=== PATIENT | female | born 1995 | race Caucasian/White ===

== ENCOUNTER 2020-08-28 10:43 | Outpatient (REF) | payer OTHER, SELFPAY ==
[2020-08-28 16:12] LABS: CT PCR NOT DETECTED (Not Detect.); NG PCR NOT DETECTED (Not Detect.)
[2020-08-29 09:26] LABS: BV Int Neg Control Negative (Negative); BV Int Pos Control Positive (Positive)
== END 2020-08-28 10:44 | disposition home or self-care (01) ==
LOC: HO.LAB 10:43
PROVIDERS: PCP Internal Medicine; Visit Provider Obstetrics & Gynecology
DX: B37.3 Candidiasis of vulva and vagina (principal)
CPT/HCPCS: 87480; 87491; 87510; 87591; 87660; 99212

== ENCOUNTER 2020-09-11 00:09 | Emergency (ER) | payer OTHER, SELFPAY ==
[2020-09-11 00:46] VITALS: BP 123/77; PULSE 86; RESP 16; TEMP 37; O2SAT 100; BMI 41.8
--- NOTE | 2020-09-11 00:50 | ED.URI ---
HPI - URI/Sore Throat General Chief Complaint: Upper Respiratory Symptoms Stated Complaint: Covid exposure Time Seen by Provider: 09/11/20 00:44 Source: patient Mode of arrival: ambulatory Limitations: no limitations History of Present Illness HPI Narrative: 25-year-old female presents for COVID-19 testing after a positive COVID 19 exposure. Her sister is positive. At this time patient is asymptomatic. Treatments prior to arrival: none Related Data Home Medications Medication Instructions Recorded Confirmed trazodone 50 mg tablet 50 mg PO BEDTIME PRN 06/02/20 Previous Rx's Medication Instructions Recorded trazodone 50 mg tablet 50 mg PO BEDTIME PRN #30 tab 06/04/20 olanzapine 10 mg tablet 10 mg PO DAILY #30 tab 06/29/20 clotrimazole-betamethasone 1 1 appl TOPICAL BID 5 Days #45 g 08/28/20 %-0.05 % topical cream terconazole 0.8 % vaginal cream 1 appful VAGINAL BEDTIME 3 Days 08/28/20 #20 g Allergies Allergy/AdvReac Type Severity Reaction Status Date / Time No Known Allergies Allergy Verified 08/28/20 11:06 [No Known Allergies*] Review of Systems Review of Systems: Constitutional: No Fever, No Chills ENT/Mouth: No Ear Pain, No Hoarseness, No sore throat Eyes: No Eye Pain, No Swelling, No Redness, No Foreign Body Cardiovascular: No Chest Pain, No SOB Respiratory: No Cough, No Dyspnea Gastrointestinal: No Nausea, No Vomiting, No Diarrhea, No abdominal Pain Genitourinary: No Dysuria, No Hematuria Musculoskeletal: No joint pain, No Myalgias, No Joint Swelling Skin: No Skin lacerations, No rash Neuro: No Weakness, No Numbness, No Paresthesias, No Loss of Consciousness, No Dizziness, No Headache Psych: No Anxiety/Panic, No Depression Heme/Lymph: no easy bruising, no Lymphadenopathy Endocrine: No Polyuria, No Polydipsia Yes all other systems are reviewed and are negative [facility] Past Medical History Attestation statement: The following information was validated with the patient. Source: old records reviewed Medical History (Updated 09/11/20 @ 00:49 by Oly Longoria NP) Sleeping difficulties Social History Social History Alcohol intake: never Smoking Status: Never smoker Advance Directives: No Physical Exam Vital Signs: Vital Signs: Last Vital Signs Temp 98.6 F 09/11/20 00:46 Pulse 86 09/11/20 00:46 Resp 16 09/11/20 00:46 BP 123/77 09/11/20 00:46 Pulse Ox 100 09/11/20 00:46 Body Mass Index 41.8 Appearance: Alert. Oriented X3. No acute distress. Eyes: Pupils equal, round and reactive to light. ENT: Pharynx normal. Neck: Normal inspection. Neck supple. CVS: Normal heart rate and rhythm. Pulses normal. Respiratory: No respiratory distress. Breath sounds normal. Abdomen: Soft and nontender. Skin: Skin warm and dry. Normal skin color. Normal skin turgor. Extremities: No lower extremity edema. Neuro: No motor deficit. No sensory deficit. Course Course Course Narrative: 25-year-old female presents with positive COVID-19 exposure. Plan of care is to test. Will call with her results. Patient does understand social isolation guidelines. Patient verbalized understanding of and agrees to plan of care discharge home. 1:45 a.m. family called to update that child is COVID positive, meaning that the entire family would be COVID positive. MDM - URI/Sore Throat Differential Diagnosis Differential diagnosis: Likely upper respiratory infection and viral infection Medical Records Attestation: I reviewed the patient's medical records. Lab Data Attestation: I reviewed the patient's lab results. Labs: Lab Results 09/11/20 Range/Units 01:02 COVID-19 (IRAIDA) Negative (Negative) COVID-19 Clin Com See Note Discharge Plan Discharge Clinical Impression: COVID-19 Patient Disposition: Home, Self-Care Instructions: COVID-19 (Coronavirus Disease 2019) (ED) Additional Instructions: You were evaluated for symptoms consistent with COVID-19 and or COVID-19 positive exposure. Please maintain social isolation per State and Federal guidelines. Is your responsibility to maintain these guidelines. Your test results are pending. We will call you with the results. You must treat yourself as if you are positive until your test results come back. Thank you for choosing this emergency department for evaluation. Please follow-up with primary care physician as needed. Return to the emergency department for any new, concerning, or worsening symptoms. Prescriptions: No Action trazodone 50 mg tablet 50 mg PO BEDTIME PRNRF: 0 trazodone 50 mg tablet 50 mg PO BEDTIME PRN (Reason: for insomnia) Qty: 30 RF: 6 olanzapine 10 mg tablet 10 mg PO DAILY Qty: 30 RF: 5 terconazole 0.8 % cream 1 appful vaginal BEDTIME 3 Days Qty: 20 RF: 0 clotrimazole-betamethasone 1-0.05 % cream 1 appl topical BID 5 Days Qty: 45 RF: 0 Stand Alone Forms: Work/School Release Interventions: ED Discharge Assessment Last Done: 09/11/20 01:28 Discharge Date/Time: 09/11/20 01:29
[2020-09-11 01:25] LABS: COVID-19 Test Negative (Negative)
== END 2020-09-11 01:29 | disposition home or self-care (01) ==
PROVIDERS: Nurse Practitioner Family; Emergency Provider Emergency Medicine Emergency Medical Services; PCP Internal Medicine
DX: Z20.822 Contact with and (suspected) exposure to COVID-19 (principal)
CPT/HCPCS: 36415; 87635; 99283

== ENCOUNTER 2020-09-16 11:50 | Outpatient (REF) | payer OTHER, SELFPAY ==
[2020-09-16 12:23] LABS: COVID-19 Test Negative (Negative); IDNOW Serial# 08D9AD1C
== END 2020-09-16 11:51 | disposition home or self-care (01) ==
LOC: HO.LAB 11:50
PROVIDERS: Visit Provider Internal Medicine
DX: Z20.822 Contact with and (suspected) exposure to COVID-19 (principal)
CPT/HCPCS: 36415; 87635; C9803

== ENCOUNTER 2020-09-21 13:42 | Emergency (ER) | payer OTHER, SELFPAY ==
--- NOTE | ~2020-09-21 | XR_ITS ---
EXAMINATION: XR CHEST CLINICAL INFORMATION: Shortness of breath. COMPARISON: Chest done on 07/28/2015. TECHNIQUE: Frontal view of the chest was obtained. FINDINGS: No significant abnormality is noted involving the heart, lungs, mediastinum, bony thorax or soft tissues. XR/XR chest 1V IMPRESSION: Unremarkable examination.
[2020-09-21 13:57] VITALS: BP 149/83; PULSE 97; RESP 18; TEMP 36.8; O2SAT 97; BMI 37.2
--- NOTE | 2020-09-21 14:55 | ED.URI ---
HPI - URI/Sore Throat General Chief Complaint: Upper Respiratory Symptoms Stated Complaint: covid symptoms - exposed Time Seen by Provider: 09/21/20 14:07 Source: patient Mode of arrival: ambulatory Limitations: no limitations History of Present Illness HPI Narrative: 25 yo female wtjose armando no medical history presents to the ED from home complaining of dry cough associated with chest discomfort and shortness of breath for the last 2 days. She reports loss of sense of smell and generally feeling unwell. She lives at home with her and daughter who were both just diagnosed with COVID-19. She has mild central chest soreness when she coughs. It does not radiate and it worse with palpation. She denies fever or chills. No abdominal pain, N/V/D. Eating and drinking normally. No VILLELA. MD elicited complaint: cough and other (SOB) Onset (ago): day(s) (2) Consistency: intermittent Severity: moderate Able to tolerate fluids by mouth: Yes Exacerbating factors: exertion Relieving factors: rest Context: sick contacts Associated symptoms: chills, myalgias, headache, nasal congestion, sore throat, cough and shortness of breath Treatments prior to arrival: none Related Data Home Medications Medication Instructions Recorded Confirmed trazodone 50 mg tablet 50 mg PO BEDTIME PRN 06/02/20 Previous Rx's Medication Instructions Recorded trazodone 50 mg tablet 50 mg PO BEDTIME PRN #30 tab 06/04/20 olanzapine 10 mg tablet 10 mg PO DAILY #30 tab 06/29/20 clotrimazole-betamethasone 1 1 appl TOPICAL BID 5 Days #45 g 08/28/20 %-0.05 % topical cream terconazole 0.8 % vaginal cream 1 appful VAGINAL BEDTIME 3 Days 08/28/20 #20 g albuterol sulfate 1 inh INHALATION QID PRN #6.7 g 09/21/20 Allergies Allergy/AdvReac Type Severity Reaction Status Date / Time No Known Allergies Allergy Verified 08/28/20 11:06 [No Known Allergies*] Review of Systems Review of Systems: Constitutional: No Fever, + Chills ENT/Mouth: No sore throat, No Rhinorrhea, No Swallowing Difficulty Cardiovascular: + Chest Pain, + SOB, No Orthopnea, No Edema Respiratory: + Cough, No Sputum, No Wheezing, No dyspnea Gastrointestinal: No Nausea, No Vomiting, No Diarrhea, No abdominal Pain Genitourinary: No Dysuria, No Urinary Frequency, No Hematuria Musculoskeletal: No joint pain, + Myalgias Skin: No Skin Lesions, No rash Neuro: No Weakness, No Numbness, + Dizziness, + Headache Heme/Lymph: No Lymphadenopathy [facility] Past Medical History Attestation statement: The following information was validated with the patient. Medical History Asthma Sleeping difficulties Social History Social History Alcohol intake: never Smoking Status: Never smoker Advance Directives: No Advance Directives Information Provided: No Physical Exam Vital Signs: Vital Signs: Last Vital Signs Temp 97.1 F 09/21/20 15:28 Pulse 91 09/21/20 15:28 Resp 16 09/21/20 15:28 BP 145/96 H 09/21/20 15:28 Pulse Ox 99 09/21/20 15:28 Body Mass Index 37.2 Appearance: Alert. Oriented X3. No acute distress. Eyes: Pupils equal, round and reactive to light. ENT: Pharynx normal. Neck: Normal inspection. Neck supple. CVS: Normal heart rate and rhythm. Pulses normal. Respiratory: No respiratory distress. Breath sounds normal. Abdomen: Soft and nontender. +BS x4 Skin: Skin warm and dry. Normal skin color. Normal skin turgor. No rashes. Extremities: No lower extremity edema. Negative Eusebio's sign. Neuro: Oriented X 3. No motor deficit. No sensory deficit. Course Course Course Narrative: 25 y/o female with history of mild intermittent asthma presenting with COVID symptoms after known exposure. PERC negative. No respiratory distress with clear lungs on exam. CXR is clear. COVID PCR sent - patient requesting to leave and get called with the results. Stable for d/c. She has been counseled on management and warning signs to return to the ER. Critical Care Time Critical Care Time Critical Care Time: No Discharge Plan Discharge Clinical Impression: COVID-19 Patient Disposition: Home, Self-Care Instructions: COVID-19 (Coronavirus Disease 2019) (ED) Additional Instructions: You tested for COVID-19 today - we will call you with the results this evening. Given your symptoms and known exposure, you are most likely POSITIVE. Your chest x-ray and oxygen levels were normal. Rest. Drink plenty of fluids. Do not go out in public for the next 10 days. Take over the counter cold/flu medications as needed for your symptoms. Take Tylenol and/or Motrin as needed for fevers and body aches. Follow up with your doctor this week. If you shortness of breath worsens , if you develop difficulty breathing or any other concerning symptom come back to the ER for further evaluation. Prescriptions: New albuterol sulfate 90 mcg/actuation HFA aerosol inhaler 1 inh inhalation QID PRN (Reason: shortness of breath or wheezing) Qty: 6.7 RF: 0 No Action trazodone 50 mg tablet 50 mg PO BEDTIME PRNRF: 0 trazodone 50 mg tablet 50 mg PO BEDTIME PRN (Reason: for insomnia) Qty: 30 RF: 6 olanzapine 10 mg tablet 10 mg PO DAILY Qty: 30 RF: 5 terconazole 0.8 % cream 1 appful vaginal BEDTIME 3 Days Qty: 20 RF: 0 clotrimazole-betamethasone 1-0.05 % cream 1 appl topical BID 5 Days Qty: 45 RF: 0 Stand Alone Forms: Work/School Release
[2020-09-21 15:28] VITALS: BP 145/96; PULSE 91; RESP 16; TEMP 36.2; O2SAT 99
[2020-09-21 15:29] LABS: Influenza A PCR NEGATIVE (Negative); Influenza B PCR NEGATIVE (Negative); Resp Syncy Virus RNA Qual PCR NEGATIVE (Negative); SARS COV2 PCR INHOUSE POSITIVE (Negative)
== END 2020-09-21 15:56 | disposition home or self-care (01) ==
PROVIDERS: Physician Assistant; Emergency Provider Emergency Medicine Emergency Medical Services; PCP Internal Medicine
DX: U07.1 COVID-19 (principal); J45.20 Mild intermittent asthma, uncomplicated
CPT/HCPCS: 0241U; 36415; 71045; 99283

== ENCOUNTER 2020-09-24 14:35 | Inpatient (IN) | payer OTHER, SELFPAY ==
--- NOTE | ~2020-09-24 | CT_ITS ---
EXAMINATION: CT ANGIOGRAM OF THE CHEST WITH AND WITHOUT CONTRAST (CT PULMONARY ANGIOGRAM FOR PE) CLINICAL INFORMATION: Reason for Exam Elevated D-dimer. Positive COVID. Rule out PE? COMPARISON: Chest radiograph 09/21/2020 TECHNIQUE: Prior to contrast administration, noncontrast localization images were obtained. Subsequently, multidetector volumetric imaging was performed from the thoracic inlet to below the diaphragms following the administration of 71 mL Omnipaque 350 intravenous contrast. No contrast reaction reported Sagittal, coronal, and MIP oblique sagittal reformatted images were obtained on the CT workstation, uploaded to PACS, and reviewed. This CT examination was performed using dose optimization techniques as appropriate, variously including the following: *Automated exposure control *Adjustment of mA and/or kV according to patient size (this includes techniques or standardized protocols for targeted exams where dose is matched to indication/reason for exam; i.e. extremities or head) *Use of iterative reconstruction technique Total exam dose-length product 414 mGy-cm FINDINGS: QUALITY OF STUDY/CONTRAST BOLUS: Satisfactory. PULMONARY ARTERIES: Small bilateral lower lobe segmental pulmonary emboli are seen (see carbajal images). THORACIC AORTA: No aneurysm or dissection. A two-vessel arch is seen with common origin to the innominate and left carotid. LUNG: Focal nodular moderately dense consolidation is present in the right upper lobe as well as in the superior segment of the left lower lobe. This is a new finding when compared to the 09/21/2020 study. The typical multifocal groundglass infiltrates seen with Covid 19 infection are not present. PLEURA: Small trace pleural effusions are seen. MEDIASTINUM: Normal heart size. No pericardial effusion. No hilar or mediastinal lymphadenopathy. No evidence of septal bowing or right heart strain. CHEST WALL/AXILLA: No axillary or internal mammary lymphadenopathy. OSSEOUS STRUCTURES: No acute or suspicious osseous abnormality. UPPER ABDOMEN: I suspect that the liver is most likely enlarged and demonstrates decreased attenuation consistent with hepatic steatosis. No reflux of contrast into the hepatic veins to suggest elevated right heart pressures. CT/CT angio chest PE protocol IMPRESSION: 1. Bilateral lower lobe small pulmonary emboli. 2. New right upper lobe and left lower lobe consolidation. VTE: positive This critical result was discussed with Agustina Camacho MD@9:48pm and it was ascertained that the content and urgency of the report was understood at the time of direct communication.
[2020-09-24 18:35] VITALS: BP 137/80; PULSE 106; RESP 20; TEMP 37; O2SAT 96; BMI 37.2
--- NOTE | 2020-09-24 19:20 | ECG_ITS ---
Test Reason : SOB Blood Pressure : / mmHG Vent. Rate : 105 BPM Atrial Rate : 105 BPM P-R Int : 148 ms QRS Dur : 074 ms QT Int : 326 ms P-R-T Axes : 017 055 012 degrees QTc Int : 430 ms Sinus tachycardia Otherwise normal ECG No previous ECGs available Referred By: Siva Gordon Electronically Signed By:RACHELLE RAMÍREZ
[2020-09-24 19:58] LABS: MANUAL DIFF FLAG NO
[2020-09-24] MEDS: 0.9 % Sodium Chloride 1,000 ML 999 ML IV (20:01)
--- NOTE | 2020-09-24 20:02 | PC.NURSE ---
IV STARTED, LABS SENT. PT CONTINUES TO STATE THAT SHE CANT BREATHE. PT IS TALKING IN FULL LONG CONTINUOUS SENTENCES. NO SOB NOTED. NO WHEEZING NOTED. PT ASKING FOR STEROIDS AND UPDRAFT TX. PROVIDER AWARE. UDN ORDERED. PT EATING CRACKERS AND JUICE. PICTURE OF WATER GIVEN. NO DISTRESS NOTED.
[2020-09-24 20:11] LABS: Basophils Percent Auto 0.2 % (0-2); Eosinophils Percent Auto 0.2 % (0-4); Hematocrit 45.7 % (37-47); Hemoglobin 14.7 g/dl (12.0-16.0); Imm Gran Abs Auto 0.05 X10*3/uL (0.00-0.03); Imm Gran Pct Auto 1.1 % (0.0-0.4); Lymphocytes Absolute Auto 0.8 X10*3/uL (1.2-4.9); Lymphocytes Percent Auto 17.5 % (20-40); Mean Corpuscular HGB Conc 32.2 g/dl (31.0-35.0); Mean Corpuscular Hemoglobin 28.4 pg (27.0-33.0); Mean Corpuscular Volume 88.2 fL (80-98); Monocytes Absolute Auto 0.3 X10*3/uL (0.1-1.2); Monocytes Percent Auto 5.4 % (2-11); Neutrophils Absolute Auto 3.5 X10*3/uL (2.0-8.3); Neutrophils Percent Auto 75.6 % (45-73); Platelet Count 252 X10*3/uL (160-400); Red Blood Count 5.18 X10*6/uL (4.20-5.50); Red Cell Distribution Width 14.4 % (11.0-16.0); White Blood Count 4.6 X10*3/uL (4.8-10.8)
[2020-09-24 20:25] LABS: INTERNATIONAL NORM RATIO 1.2 (0.9-1.1); Prothrombin Time 14.7 SEC (10.8-13.0)
[2020-09-24 20:28] LABS: D Dimer 321 NG/ML; Partial Thromboplastin Time 35.5 SEC (24.1-38.0)
[2020-09-24 20:43] LABS: Troponin-I High Sensitivity < 3.5 ng/L (<3.5-17.0)
[2020-09-24] MEDS: Ketorolac Tromethamine 30 MG/ML VIAL IVPUSH (20:47)
[2020-09-24] MEDS: Albuterol/Iprat 2.5/0.5MG 3 ML AMPUL.NEB INHALE (21:02)
[2020-09-24 21:03] VITALS: PULSE 106; O2SAT 96
[2020-09-24 21:09] VITALS: BP 127/83; PULSE 115; RESP 16; TEMP 37.9; O2SAT 100
[2020-09-24 21:37] LABS: Alanine Aminotransferase 58 U/L (0-31); Alkaline Phosphatase 89 U/L (39-117); Anion Gap 15 (12-20); Aspartate Amino Transferase 41 U/L (5-31); Bilirubin Total 0.3 mg/dL (0.0-1.0); Blood Urea Nitrogen 6 mg/dL (9-16); Calcium 8.1 mg/dL (8.4-10.2); Carbon Dioxide 18 mmol/L (22-29); Chloride 106 mmol/L (96-108); Creatinine Clr Calc Pharmacy 140.8; Estimated Glomerular Filt Rate > 60; Glucose Random 103 mg/dL (60-115); Potassium 4.1 mmol/L (3.3-5.1); Sodium 135 mmol/L (135-145); Total Protein 7.6 g/dL (6.5-8.0)
[2020-09-24 21:46] LABS: HCG Quantitative < 2 mIU/mL
[2020-09-24 22:00] VITALS: BP 124/82; PULSE 105; RESP 17; TEMP 37.5; O2SAT 96
[2020-09-24] MEDS: iohexoL 350 MG/ML 100 ML INFUS..BTL IV (22:45)
[2020-09-25] VITALS (11 sets, daily range): BP systolic 102–142; BP diastolic 41–80; PULSE 85–108; RESP 18–25; TEMP 36–37.6; O2SAT 94–98
--- NOTE | 2020-09-25 00:40 | P.HPHOSP_ITS ---
History of Present Illness Date of Service: 09/25/20 Chief Complaint: Chest pain 25-year-old female with a past medical history of asthma, insomnia, recently diagnosed with COVID positive on 09/21/20 presented to the hospital today with a chief complaint of increased shortness of breath. Patient complains of incre ased shortness of breath/dyspnea on exertion. Also complains of dry cough. Mention she has intermittent episodes of chest discomfort mostly attributes to posttussive chest discomfort. Denies any numbness tingling. Denies any headaches or blurry visions. Denies any GI or symptoms. Review of all other systems is negative except mentioned above ER course: Per ER team patient was saturating 97% on room air, CT scan showed right upper lobe and left lower lobe consolidation; also noted bilateral lower lobe pulmonary embolism. Patient was given Lovenox and IV antibiotics. Admitted to the hospital for further management. [facility] Medical History Asthma COVID-19 Pneumonia Pulmonary embolism Sleeping difficulties Family History Mother Hypertension Father No problems noted. Social History Household Members: Family Housing: Apartment Alcohol intake: never Smoking Status: Former smoker Tobacco Type: Cigarette Second Hand Smoke Exposure: No service: No Current occupational status: employed Meds Allergies Allergy/AdvReac Type Severity Reaction Status Date / Time No Known Allergies Allergy Verified 10/02/20 09:03 [No Known Allergies*] Active Medications: Current Medications Generic Name Dose Route Start Last Admin Trade Name Freq PRN Reason Stop Dose Admin Acetaminophen 650 mg 09/25/20 00:33 Acetaminophen 325 Mg Tablet PO Q6H PRN Pain, Mild (Pain Scale 1-3) Albuterol Sulfate 1 puff 09/25/20 00:36 Albuterol Sulfate 90 Mcg 8 Gm Inhaler INHALE QID PRN wheezing Docusate Sodium 100 mg 09/25/20 00:33 Docusate Sodium 100 Mg Capsule PO DAILY PRN Constipation Enoxaparin Sodium 95 mg 09/25/20 09:00 Enoxaparin Sodium 100 Mg/Ml Syringe 1 mg/kg (95 mg) SUBCUT BID GARRETT Ceftriaxone Sodium 1 gm/ 50 mls @ 100 mls/hr 09/25/20 00:28 Sodium Chloride IV 09/25/20 00:57 ONCE ONE Azithromycin 500 mg/ Sodium 250 mls @ 125 mls/hr 09/25/20 00:28 Chloride IV 09/25/20 02:27 ONCE ONE Ceftriaxone Sodium 1 gm/ 50 mls @ 100 mls/hr 09/25/20 00:45 Sodium Chloride IV Q24H GARRETT Azithromycin 500 mg/ Sodium 250 mls @ 125 mls/hr 09/25/20 00:45 Chloride IV Q24H GARRETT Olanzapine 10 mg 09/25/20 09:00 Olanzapine 10 Mg Tablet PO DAILY GARRETT Sodium Chloride 3 ml 09/25/20 08:00 0.9 % Sodium Chloride Flush 3 Ml Syringe IVFLUSH QSHIFT GARRETT Trazodone HCl 50 mg 09/25/20 00:36 Trazodone Hcl 50 Mg Tablet PO BEDTIME PRN insomnia Home Medications Medication Instructions Recorded Confirmed Last Taken Type Randyskylartiffany Persaud [facility] 09/24/20 10/02/20 Unknown History olanzapine 1 tab PO DAILY 09/24/20 10/02/20 Unknown History trazodone 1 tab PO BEDTIME PRN 09/24/20 10/02/20 Unknown History Physical Exam Vital Signs and Narrative: Vital Signs: Last Vital Signs Temp 98.8 F 09/25/20 00:23 Pulse 89 09/25/20 00:23 Resp 19 09/25/20 00:23 BP 125/80 09/25/20 00:23 Pulse Ox 98 09/25/20 00:23 Body Mass Index 37.2 Gen: Appears be in no acute distress; breathing comfortably. Speaks in full sentences. HEENT: NCAT, Moist mucosa. Pulmonary: Course breath sounds, fair air entry CVS: Normal S1-S2 Abdomen: BS+, Soft, Nontender Extremities: Warm well perfused Neuro: Alert and awake. Results Labs CBC and Chem 7: 09/26/20 05:31 09/25/20 06:57 Labs: Laboratory Results - last 24 hr 09/24/20 09/24/20 09/24/20 19:46 19:46 19:47 MCV 88.2 MCH 28.4 MCHC 32.2 RDW 14.4 Plt Count 252 MPV 11.0 Immature Gran % (Auto) 1.1 H Neut % (Auto) 75.6 H Lymph % (Auto) 17.5 L [place] % (Auto) 5.4 Eos % (Auto) 0.2 Baso % (Auto) 0.2 Lymph # (Auto) 0.8 L [place] # (Auto) 0.3 Eos # (Auto) 0.0 Baso # (Auto) 0.0 Abs Immat Gran (auto) 0.05 H Absolute Neuts (auto) 3.5 Absolute Nucleated RBC 0.000 Nucleated RBC % (auto) 0.0 PT 14.7 H INR 1.2 H APTT 35.5 D-Dimer 321 Anion Gap Estim Creat Clear Calc Estimated GFR Random Glucose Calcium Total Bilirubin AST ALT Alkaline Phosphatase Troponin I High Sens < 3.5 Total Protein Albumin Beta HCG, Quant 09/24/20 21:08 MCV MCH MCHC RDW Plt Count MPV Immature Gran % (Auto) Neut % (Auto) Lymph % (Auto) [place] % (Auto) Eos % (Auto) Baso % (Auto) Lymph # (Auto) [place] # (Auto) Eos # (Auto) Baso # (Auto) Abs Immat Gran (auto) Absolute Neuts (auto) Absolute Nucleated RBC Nucleated RBC % (auto) PT INR APTT D-Dimer Anion Gap 15 Estim Creat Clear Calc 140.8 Estimated GFR > 60 Random Glucose 103 Calcium 8.1 L Total Bilirubin 0.3 AST 41 H ALT 58 H Alkaline Phosphatase 89 Troponin I High Sens Total Protein 7.6 Albumin 4.0 Beta HCG, Quant < 2 Imaging Radiologist's Impressions: Impressions Chest CTA 09/24/20 22:09 IMPRESSION: 1. Bilateral lower lobe small pulmonary emboli. 2. New right upper lobe and left lower lobe consolidation. VTE: positive This critical result was discussed with Agustina Camacho MD@9:48pm and it was ascertained that the content and urgency of the report was understood at the time of direct communication. Assessment and Plan (1) COVID-19: 25-year-old female with a past medical history of asthma, recent diagnosis of COVID-19 presented to the hospital with a chief complaint of increased shortness of breath/cough/chest discomfort. Noted to have pneumonia and pulmonary embolism. Admitted for further management. Pneumonia: Continue ceftriaxone and azithromycin. COVID-19 positive: Patient currently saturating well on room air, saturating at 97%.Supplemental oxygen p.r.n. ID consult History of asthma: Coarse breath sounds. Will give the patient on albuterol inhaler. Will also start the patient on dexamethasone. pulmonary embolism: Continue Lovenox 1 milligram/kg b.i.d.. Echocardiogram. GI prophylaxis: Pepcid Code status: Full code
[2020-09-25 01:43] LABS: Hematocrit 41.2 % (37-47); Hemoglobin 13.3 g/dl (12.0-16.0); Mean Corpuscular HGB Conc 32.3 g/dl (31.0-35.0); Mean Corpuscular Hemoglobin 28.7 pg (27.0-33.0); Mean Platelet Volume 11.2 fL (9.4-12.3); Platelet Count 229 X10*3/uL (160-400); Red Blood Count 4.63 X10*6/uL (4.20-5.50); Red Cell Distribution Width 14.6 % (11.0-16.0); White Blood Count 4.3 X10*3/uL (4.8-10.8)
[2020-09-25 01:50] LABS: INTERNATIONAL NORM RATIO 1.4 (0.9-1.1); Prothrombin Time 16.3 SEC (10.8-13.0)
[2020-09-25 01:52] LABS: Partial Thromboplastin Time 32.7 SEC (24.1-38.0)
[2020-09-25] MEDS: cefTRIAXone sodium 1 GM in 0.9 % Sodium Chloride 50 ML IV (01:53)
[2020-09-25] MEDS: Enoxaparin Sodium 100 MG/ML SYRINGE 95 MG SUBCUT ×2 (01:54→14:49)
[2020-09-25] MEDS: traZODone HCL 50 MG TABLET PO ×2 (01:54→20:44)
[2020-09-25] MEDS: Acetaminophen 325 MG TABLET 650 MG PO ×3 (01:54→20:44)
[2020-09-25] MEDS: Azithromycin 500 MG in 0.9 % Sodium Chloride 250 ML 125 MG IV (02:03)
[2020-09-25] MEDS: OLANZapine 10 MG TABLET PO ×2 (02:03→16:15)
[2020-09-25 02:09] LABS: Lactic Acid 1.4 mmol/L (0.5-2.0)
--- NOTE | 2020-09-25 02:10 | ED.GENADULT ---
HPI - General Adult General Chief complaint: Upper Respiratory Symptoms Stated complaint: CHEST PAIN +COVID 09/21/20 Time Seen by Provider: 09/24/20 18:42 Source: patient Mode of arrival: ambulatory Limitations: no limitations History of Present Illness HPI narrative: Patient presents to for chest pain and shortness of breath and cough. Patient recently diagnosed with COVID-19 virus 4 days ago. Patient denies any calf pain or swelling of lower extremities. Related Data Home Medications Medication Instructions Recorded Confirmed albuterol sulfate 1 puff INHALATION QID PRN 09/24/20 09/24/20 inhalational spacing device 09/24/20 09/24/20 [[facility]] olanzapine 1 tab PO DAILY 09/24/20 09/24/20 trazodone 1 tab PO BEDTIME PRN 09/24/20 09/24/20 Allergies Allergy/AdvReac Type Severity Reaction Status Date / Time No Known Allergies Allergy Verified 08/28/20 11:06 [No Known Allergies*] Review of Systems Review of Systems: Yes all other systems are reviewed and are negative Constitutional: Constitutional: Reports as per HPI and Reports no additional constitutional complaints Eyes: Eyes: Reports as per HPI and Reports no additional eye complaints ENT: Reports system reviewed and no additional complaints, except as documented and Reports as per HPI Cardiovascular: Cardiovascular: Reports as per HPI, Reports no additional cardiovascular complaints and Reports chest pain Respiratory: Respiratory: Reports as per HPI, Reports no additional respiratory complaints and Reports cough Gastrointestinal: Gastrointestinal: Reports as per HPI and Reports no additional gastrointestinal complaints Genitourinary: Genitourinary: Reports no additional female genitourinary complaints and Reports as per HPI Musculoskeletal: Musculoskeletal: Reports no additional musculoskeletal complaints and Reports as per HPI Neurologic: Reports system reviewed and no additional complaints, except as documented and Reports as per HPI Psychiatric: Psychiatric: Reports no additional psychiatric complaints and Reports as per HPI PMF Past Medical History Medical History Asthma Sleeping difficulties Social History Social History Alcohol intake: never Smoking Status: Never smoker Use of substances other than those prescribed or required for medical reasons: No Advance Directives: No Advance Directives Information Provided: No Physical Exam Vital Signs: Vital Signs: Last Vital Signs Temp 98.8 F 09/25/20 00:23 Pulse 90 09/25/20 01:28 Resp 25 H 09/25/20 01:28 BP 124/75 09/25/20 01:28 Pulse Ox 96 09/25/20 01:28 Body Mass Index 37.2 Const: General: cooperative, healthy appearing, comfortable, no acute distress, well developed, alert, awake and Physically active Orientation/consciousness: patient oriented x3 HENMT: Head: Yes normal to inspection, Yes No palpable skull fracture present, Yes normocephalic and Yes atraumatic Eyes: General: appearance normal, both eyes and all related structures Neck: Neck: Yes normal visual inspection, Yes full ROM, Yes no lymphadenopathy, Yes no meningeal signs, Yes trachea midline, Yes supple and No tender Chest: Chest palpation & inspection: normal inspection of the chest and normal palpation of entire chest wall Resp: Effort & Inspection: normal respiratory effort and able to speak in complete sentences Auscultation: clear to auscultation bilaterally Cardio: Jugular venous distension: no JVD Heart sounds: S1 normal heart sound present and S2 normal heart sound present GI: Inspection: Yes normal to inspection Palpation (GI): Soft to palpation, not firm, nontender, no guarding and not rigid : General: No CVA tenderness and Yes no CVA tenderness Back/Spine/Pelvis: Back: no CVA tenderness, No CVA tenderness and No back tenderness Skin: General skin exam: no rashes or lesions noted and elasticity normal Neuro: General: patient oriented x3, no meningeal signs and CN's II-XI intact bilaterally Cranial nerves: Yes CN's II-XII intact bilaterally Extrem: Other: Lower extremities negative for swelling, pitting edema, calf tenderness General: Yes normal to inspection and Yes full ROM Psych: Appearance: grossly normal, well kempt and not disheveled Course Course Course Narrative: Patient will have cardiac evaluation and rule out PE due to patient being positive for COVID-19. Reevaluation(s) Reevaluation #1: Patient's troponin is negative. EKG just sinus tachycardia. Patient's troponin came back negative. Patient's D-dimer came back elevated so patient will be sent for a chest CTA to rule out PE. Patient vital signs are stable. Patient is not any respiratory distress Reevaluation #2: . Patient's CT scan of the chest came back positive for bilateral PE with bilateral pneumonia. Patient is not any distress. Spoke with hospitalist Dr. Dacosta who excepted case. He recommended patient be started on Lovenox and antibiotics. Lactic acid and blood culture ordered. Medical Decision Making MDM Narrative Medical decision making narrative: Pneumonia. PE. COVID Lab Data Result diagrams: 09/25/20 01:30 09/24/20 21:08 Labs: Lab Results 09/24/20 09/24/20 09/24/20 Range/Units 19:46 19:46 19:47 WBC 4.6 L (4.8-10.8) X10*3/uL RBC 5.18 (4.20-5.50) X10*6/uL Hgb 14.7 (12.0-16.0) g/dl Hct 45.7 (37-47) % MCV 88.2 (80-98) fL MCH 28.4 (27.0-33.0) pg MCHC 32.2 (31.0-35.0) g/dl RDW 14.4 (11.0-16.0) % Plt Count 252 (160-400) X10*3/uL MPV 11.0 (9.4-12.3) fL Immature Gran % (Auto) 1.1 H (0.0-0.4) % Neut % (Auto) 75.6 H (45-73) % Lymph % (Auto) 17.5 L (20-40) % [place] % (Auto) 5.4 (2-11) % Eos % (Auto) 0.2 (0-4) % Baso % (Auto) 0.2 (0-2) % Lymph # (Auto) 0.8 L (1.2-4.9) X10*3/uL [place] # (Auto) 0.3 (0.1-1.2) X10*3/uL Eos # (Auto) 0.0 (0.0-0.4) X10*3/uL Baso # (Auto) 0.0 (0.0-0.2) X10*3/uL Abs Immat Gran (auto) 0.05 H (0.00-0.03) X10*3/uL Absolute Neuts (auto) 3.5 (2.0-8.3) X10*3/uL Absolute Nucleated RBC 0.000 (0.0-0.012) X10*3/uL Nucleated RBC % (auto) 0.0 (0.0-0.2) /100WBC PT 14.7 H (10.8-13.0) SEC INR 1.2 H (0.9-1.1) APTT 35.5 (24.1-38.0) SEC D-Dimer 321 NG/ML Sodium (135-145) mmol/L Potassium (3.3-5.1) mmol/L Chloride (96-108) mmol/L Carbon Dioxide (22-29) mmol/L Anion Gap (12-20) BUN (9-16) mg/dL Creatinine (0.5-1.4) mg/dL Estim Creat Clear Calc Estimated GFR Random Glucose (60-115) mg/dL Calcium (8.4-10.2) mg/dL Total Bilirubin (0.0-1.0) mg/dL AST (5-31) U/L ALT (0-31) U/L Alkaline Phosphatase (39-117) U/L Troponin I High Sens < 3.5 (<3.5-17.0) ng/L Total Protein (6.5-8.0) g/dL Albumin (3.5-5.0) g/dL Beta HCG, Quant mIU/mL 09/24/20 Range/Units 21:08 WBC (4.8-10.8) X10*3/uL RBC (4.20-5.50) X10*6/uL Hgb (12.0-16.0) g/dl Hct (37-47) % MCV (80-98) fL MCH (27.0-33.0) pg MCHC (31.0-35.0) g/dl RDW (11.0-16.0) % Plt Count (160-400) X10*3/uL MPV (9.4-12.3) fL Immature Gran % (Auto) (0.0-0.4) % Neut % (Auto) (45-73) % Lymph % (Auto) (20-40) % [place] % (Auto) (2-11) % Eos % (Auto) (0-4) % Baso % (Auto) (0-2) % Lymph # (Auto) (1.2-4.9) X10*3/uL [place] # (Auto) (0.1-1.2) X10*3/uL Eos # (Auto) (0.0-0.4) X10*3/uL Baso # (Auto) (0.0-0.2) X10*3/uL Abs Immat Gran (auto) (0.00-0.03) X10*3/uL Absolute Neuts (auto) (2.0-8.3) X10*3/uL Absolute Nucleated RBC (0.0-0.012) X10*3/uL Nucleated RBC % (auto) (0.0-0.2) /100WBC PT (10.8-13.0) SEC INR (0.9-1.1) APTT (24.1-38.0) SEC D-Dimer NG/ML Sodium 135 (135-145) mmol/L Potassium 4.1 (3.3-5.1) mmol/L Chloride 106 (96-108) mmol/L Carbon Dioxide 18 L (22-29) mmol/L Anion Gap 15 (12-20) BUN 6 L (9-16) mg/dL Creatinine 0.67 (0.5-1.4) mg/dL Estim Creat Clear Calc 140.8 Estimated GFR > 60 Random Glucose 103 (60-115) mg/dL Calcium 8.1 L (8.4-10.2) mg/dL Total Bilirubin 0.3 (0.0-1.0) mg/dL AST 41 H (5-31) U/L ALT 58 H (0-31) U/L Alkaline Phosphatase 89 (39-117) U/L Troponin I High Sens (<3.5-17.0) ng/L Total Protein 7.6 (6.5-8.0) g/dL Albumin 4.0 (3.5-5.0) g/dL Beta HCG, Quant < 2 mIU/mL ECG Data Interpretation: Sinus tachycardia. Ventricular 105. Pr interval 148. QTC 430. Negative STEMI. Discharge Plan Discharge Clinical Impression: COVID-19, Pulmonary embolism, Pneumonia
[2020-09-25 07:23] LABS: MANUAL DIFF FLAG NO
[2020-09-25 07:26] LABS: Basophils Percent Auto 0.2 % (0-2); Eosinophils Percent Auto 0.2 % (0-4); Hematocrit 40.4 % (37-47); Hemoglobin 13.3 g/dl (12.0-16.0); Imm Gran Abs Auto 0.04 X10*3/uL (0.00-0.03); Imm Gran Pct Auto 0.9 % (0.0-0.4); Lymphocytes Absolute Auto 1.3 X10*3/uL (1.2-4.9); Mean Corpuscular HGB Conc 32.9 g/dl (31.0-35.0); Mean Platelet Volume 11.3 fL (9.4-12.3); Monocytes Absolute Auto 0.3 X10*3/uL (0.1-1.2); Monocytes Percent Auto 6.6 % (2-11); Neutrophils Absolute Auto 2.7 X10*3/uL (2.0-8.3); Neutrophils Percent Auto 62.1 % (45-73); Platelet Count 221 X10*3/uL (160-400); Red Blood Count 4.59 X10*6/uL (4.20-5.50); Red Cell Distribution Width 14.4 % (11.0-16.0); White Blood Count 4.4 X10*3/uL (4.8-10.8)
[2020-09-25 08:02] LABS: Anion Gap 14 (12-20); Blood Urea Nitrogen 8 mg/dL (9-16); Calcium 7.7 mg/dL (8.4-10.2); Carbon Dioxide 20 mmol/L (22-29); Chloride 107 mmol/L (96-108); Estimated Glomerular Filt Rate > 60; Glucose Random 85 mg/dL (60-115); Sodium 137 mmol/L (135-145)
[2020-09-25] MEDS: dexAMETHasone 6 MG TABLET PO (08:58)
[2020-09-25] MEDS: Famotidine 20 MG TABLET PO (08:58)
[2020-09-25] MEDS: 0.9 % Sodium Chloride Flush 3 ML SYRINGE IVFLUSH ×3 (09:01→20:52)
--- NOTE | 2020-09-25 09:01 | PC.NURSE ---
pt sleeping but easily arousable, pt alert and oriented, skin slightly flushed in the cheeks, respirations even and unlabored, ls clear. pt states feeling tightness in the chest and is requesting a breathing treatment, states that she does not want the inhaler, also reports that her zyprex makes her tired so she takes it at night at home. pt provided with her breakfast helen.
--- NOTE | 2020-09-25 09:11 | PC.NURSE ---
pharmacy called about the zyprex, they change it for night time
[2020-09-25 09:32] LABS: Procalcitonin 0.04 ng/mL
[2020-09-25] MEDS: Albuterol Sulfate (0.083%) 2.5 MG/3 ML VIAL.NEB INHALE (10:03)
[2020-09-25] MEDS: Albuterol Sulfate 90 MCG 8 GM INHALER 2 PUFF INHALE (11:55)
--- NOTE | 2020-09-25 11:58 | PC.NURSE ---
INTRODUCED SELF TO PT. PT WARM TO TOUCH, DIAPHORETIC, C/O CHEST TIGHTNESS. LS CLEAR THROUGHOUT, SPO2 WNL. GIVEN PRN APAP AND ALBUTEROL INHALER. AWAITING ROOM ASSIGNMENT, PT AWARE OF PLAN FOR CARE.
--- NOTE | 2020-09-25 15:30 | PM.EVENT ---
Event Note Date of Service: 09/25/20 Event Note: Day Team Note S Seen and examined this afternoon Reports inability to take deep breath Reports anxiety Reports her tested positive September 17 Vitals Last documented Gen - appears anxious CVS - S1S2 Lungs - diminished air entry, no wheezing this AM, tachypneic Abd - soft, nt Neuro - non-focal A/p 25 yo M admitted for COVID 19 with resultant bilateral pulmonary emboli and possible superimposed pneumonia continue decadron (has history of ashtma and ? was wheezing in the ED) continue inhalers continue lovenox, possibly switch oral meds by tomorrow continue antibiotics, stop zmax to doxy ID input
--- NOTE | 2020-09-25 15:50 | MHC.CM.PN ---
Addendum entered by Beatriz Dumont 09/25/20 16:18: PT CALLED CM BACK AND REPORTS SHE LIVES WITH HER AND CHILD. PT REPORTS BEING INDEPENDENT WITH ALL CARE AND USES A NEBULIZER ONLY. CURRENT DC PLAN IS HOME WITH NO SERVICES TO TRANSPORT Original Note: PT ON COVID ISOLATION, CM ATTEMPTED TO CONTACT HER VIA T/C TO THE CELL PHONE NUMBER LISTED ([phone]). CALL WENT TO . MESSAGE LEFT REQUESTING A RETURN CALL.
[2020-09-26 01:20] LABS: INTERNATIONAL NORM RATIO 1.3 (0.9-1.1)
[2020-09-26] MEDS: Enoxaparin Sodium 100 MG/ML SYRINGE 95 MG SUBCUT (01:55)
[2020-09-26 04:00] VITALS: BP 98/44; PULSE 74; RESP 18; TEMP 36.7; O2SAT 95
[2020-09-26 05:53] LABS: Hematocrit 41.4 % (37-47); Hemoglobin 13.6 g/dl (12.0-16.0); Mean Corpuscular HGB Conc 32.9 g/dl (31.0-35.0); Mean Corpuscular Hemoglobin 28.8 pg (27.0-33.0); Mean Corpuscular Volume 87.5 fL (80-98); Mean Platelet Volume 11.5 fL (9.4-12.3); Platelet Count 217 X10*3/uL (160-400); Red Blood Count 4.73 X10*6/uL (4.20-5.50); Red Cell Distribution Width 14.2 % (11.0-16.0); White Blood Count 3.8 X10*3/uL (4.8-10.8)
[2020-09-26 07:22] VITALS: BP 102/54; PULSE 78; RESP 18; TEMP 36; O2SAT 96
[2020-09-26] MEDS: dexAMETHasone 6 MG TABLET PO (10:52)
[2020-09-26] MEDS: 0.9 % Sodium Chloride Flush 3 ML SYRINGE IVFLUSH (10:52)
[2020-09-26] MEDS: Famotidine 20 MG TABLET PO (10:52)
[2020-09-26 11:17] VITALS: BP 116/50; PULSE 99; RESP 18; TEMP 36.1; O2SAT 96
--- NOTE | 2020-09-26 11:21 | P.DS_ITS ---
DS: Providers Provider Date of Service: 09/26/20 <SANDY Malik - Last Filed: 09/26/20 11:29> 09/26/20 <Vineet Bailon MD - Last Filed: 09/26/20 13:35> Date of admission: 09/25/20 00:33 <SANDY Malik - Last Filed: 09/26/20 11:29> Primary care physician: Mayda Rosenbaum MD <SANDY Malik - Last Filed: 09/26/20 11:29> Consults: 09/25/20 00:33 Consult to Infectious Diseases Routine Consulting Provider: Yolande Martinez Reason for consultation: COVID positive; PNA; <SANDY Malik - Last Filed: 09/26/20 11:29> DS: Diagnosis Discharge Diagnosis (1) COVID-19: Status: Acute <SANDY Mailk - Last Filed: 09/26/20 11:29> (2) Pulmonary embolism: Status: Acute <SANDY Malik - Last Filed: 09/26/20 11:29> (3) Asthma exacerbation: Status: Acute <SANDY Malik - Last Filed: 09/26/20 11:29> DS: Medications Discharge Medications Home Medications: Home Medications Medication Instructions Recorded Confirmed Tello Persaud [facility] 09/24/20 09/24/20 albuterol sulfate 1 puff INHALATION QID PRN 09/24/20 09/24/20 olanzapine 1 tab PO DAILY 09/24/20 09/24/20 trazodone 1 tab PO BEDTIME PRN 09/24/20 09/24/20 Previous Rx's Medication Instructions Recorded albuterol sulfate 0.63 mg INHALATION Q4-6H PRN #90 ml 09/26/20 doxycycline hyclate 100 mg PO BID 3 Days #6 cap 09/26/20 prednisone 40 mg PO DAILY 3 Days #6 tab 09/26/20 rivaroxaban [Xarelto] 15 mg PO BID 21 Days #42 tab 09/26/20 rivaroxaban [Xarelto] 20 mg PO DAILY 30 Days #30 tab 09/26/20 <SANDY Malik - Last Filed: 09/26/20 11:29> DS: Summary Hospital Course Hospital Course: 25-year-old female with a past medical history of asthma, insomnia, recently diagnosed with COVID positive on 09/21/20 presented to the hospital today with a chief complaint of increased shortness of breath. Patient complains of increased shortness of breath/dyspnea on exertion. Also complains of dry cough. Mention she has intermittent episodes of chest discomfort mostly attributes to posttussive chest discomfort. Denies any numbness tingling. Denies any headaches or blurry visions. Denies any GI or symptoms. Review of all other systems is negative except mentioned above ER course: Per ER team patient was saturating 97% on room air, CT scan showed right upper lobe and left lower lobe consolidation; also noted bilateral lower lobe pulmonary embolism. Patient was given Lovenox and IV antibiotics. Admitted to the hospital for further management. 25 yo female admitted for COVID 19 with resultant bilateral pulmonary emboli and possible superimposed pneumonia She was started on PO decadron due to history of asthma and wheezing on admission, IV antibiotics were started for possible super-imposed pneumonia. She will be discharged home with prednisone and doxycycline. For her PE she was started on Lovenox. PE was thought to be secondary to covid 19. She will be transitioned to Xarelto on discharge. She should call to schedule an appointment with her PCP in the next week. Attending Attestation: Patient seen and examined independently and I was present during carbajal portion of E/M service. Agree with SANDY Lentz's history, physical, assessment, and plan. <SANDY Malik - Last Filed: 09/26/20 11:29> Time Spent with Patient Time attestation: Total time spent providing and/or coordinating discharge services: <SANDY Malik - Last Filed: 09/26/20 11:29> Discharge coordination time: Greater than 30 minutes <SANDY Malik - Last Filed: 09/26/20 11:29> Physical Exam Vital Signs: Vital Signs: Last Vital Signs Temp 97 F 09/26/20 11:17 Pulse 99 09/26/20 11:17 Resp 18 09/26/20 11:17 BP 116/50 L 09/26/20 11:17 Pulse Ox 96 09/26/20 11:17 Body Mass Index 37.2 <SANDY Malik - Last Filed: 09/26/20 11:29> Const: Nutritional Appearance: well nourished <SANDY Malik - Last Filed: 09/26/20 11:29> Orientation/consciousness: patient oriented x3 <SANDY Malik - Last Filed: 09/26/20 11:29> HENMT: Head: Yes normocephalic and Yes atraumatic <SANDY Malik - Last Filed: 09/26/20 11:29> Eyes: Sclerae: sclerae normal <SANDY Malik - Last Filed: 09/26/20 11:29> Chest: Chest palpation & inspection: normal inspection of the chest <SANDY Malik - Last Filed: 09/26/20 11:29> Resp: Effort & Inspection: normal respiratory effort and no respiratory distress <SANDY Malik - Last Filed: 09/26/20 11:29> GI: Palpation (GI): Soft to palpation and nontender <SANDY Malik - Last Filed: 09/26/20 11:29> Neuro: General: patient oriented x3 <SANDY Malik - Last Filed: 09/26/20 11:29> Cranial nerves: Yes CN's II-XII intact bilaterally and Yes Bilaterally intact EOM present <SANDY Malik - Last Filed: 09/26/20 11:29> DS: Data Data Completed and Pending Labs on day of discharge: Laboratory Results - last 24 hr 09/26/20 09/26/20 01:05 05:31 WBC 3.8 L RBC 4.73 Hgb 13.6 Hct 41.4 MCV 87.5 MCH 28.8 MCHC 32.9 RDW 14.2 Plt Count 217 MPV 11.5 Absolute Nucleated RBC 0.000 Nucleated RBC % (auto) 0.0 PT 15.0 H INR 1.3 H Preliminary micro results at discharge 09/25/20 01:35 Blood Culture - Preliminary Blood - Venous No growth after 24 hours. 09/25/20 01:30 Blood Culture - Preliminary Blood - Venous No growth after 24 hours. <SANDY Malik - Last Filed: 09/26/20 11:29> Discharge Plan Discharge Patient Disposition: Home, Self-Care <SANDY Malik - Last Filed: 09/26/20 11:29> Discharge Diagnosis: pulmonary embolus, covid 19 <SANDY Malik - Last Filed: 09/26/20 11:29> pulmonary embolus, covid 19 <Vineet Bailon MD - Last Filed: 09/26/20 13:35> Referrals: Myada Hummel MD [Primary Care Provider] - 1 Week <SANDY Malik - Last Filed: 09/26/20 11:29> Discharge Medications: New Xarelto 15 mg tablet 15 mg PO BID 21 Days Qty: 42 RF: 0 Xarelto 20 mg tablet 20 mg PO DAILY 30 Days Qty: 30 RF: 0 doxycycline hyclate 100 mg capsule 100 mg PO BID 3 Days Qty: 6 RF: 0 prednisone 20 mg tablet 40 mg PO DAILY 3 Days Qty: 6 RF: 0 albuterol sulfate 0.63 mg/3 mL solution for nebulization 0.63 mg inhalation Q4-6H PRN (Reason: shortness of breath or wheezing) Qty: 90 RF: 0 Continued trazodone 50 mg tablet 1 tab PO BEDTIME PRN (Reason: insomnia) RF: 0 olanzapine 10 mg tablet 1 tab PO DAILY RF: 0 albuterol sulfate 90 mcg/actuation HFA aerosol inhaler 1 puff inhalation QID PRN (Reason: wheezing) RF: 0 (DME) [facility] Spacer inhalation DIRECTED RF: 0 <SANDY Malik - Last Filed: 09/26/20 11:29> Discharge Orders: Discharge Order (Routine); Ordered 09/26/20 Ordered By: Shoshana Rico <SANDY Malik - Last Filed: 09/26/20 11:29> Activity on Discharge: As tolerated <SANDY Malik - Last Filed: 09/26/20 11:29> As tolerated <Vineet Bailon MD - Last Filed: 09/26/20 13:35> Stand Alone Forms: Patient Portal Discharge page <SANDY Malik - Last Filed: 09/26/20 11:29> Care Plan Goals: See below <SANDY Malik - Last Filed: 09/26/20 11:29> Health Concerns: Pulmonary Embolus Asthma COVID 19 <SANDY Malik - Last Filed: 09/26/20 11:29> Plan of Treatment: Pulmonary Embolus - you have been started on a blood thinner. Take xarelto as prescribed. 15 mg twice a day for 21 days and then change to 20 mg daily (there are 2 separate prescriptions) Asthma - you will be discharged with doxycycline, prednisone and albuterol Please call your PCP to schedule a follow up appointment <SANDY Malik - Last Filed: 09/26/20 11:29> Assessment: See discharge summary <SANDY Malik - Last Filed: 09/26/20 11:29>
--- NOTE | 2020-09-26 11:58 | MHC.CM.PN ---
DP Female 25 DX covid+ w clots will discharge today to home. Trial packet of Xaralto provided to Pt. Instruction on use of coupon understood by Pt. The Pt is going home with family assit. Family is providing transport to home.
[2020-09-26] MEDS: Rivaroxaban 15 MG TABLET PO (12:28)
== END 2020-09-26 13:57 | disposition home or self-care (01) | DRG 137 ==
LOC: HO.ED 09-25 00:03 → HO.EDOVER 09-25 00:46 → HO.IMC 09-25 12:15
PROVIDERS: Physician Assistant; Admitting Provider Hospitalist; Emergency Provider Emergency Medicine; PCP Internal Medicine; Visit Provider Family Medicine
DX: U07.1 COVID-19 (principal); I26.99 Other pulmonary embolism without acute cor pulmonale; J12.82 Pneumonia due to coronavirus disease 2019; J45.901 Unspecified asthma with (acute) exacerbation; F17.210 Nicotine dependence, cigarettes, uncomplicated; Z71.6 Tobacco abuse counseling; Z79.01 Long term (current) use of anticoagulants; Z79.899 Other long term (current) drug therapy
CPT/HCPCS: 36415; 71275; 80048; 80053; 83605; 84145; 84484; 84702; 85025; 85027; 85379; 85610; 85730; 87040; 93005; 94640; 96365; 96366; 96368; 96375; 99285; J0456; J0696; J1650; J1885; J8540; Q9967

== ENCOUNTER 2020-10-30 13:45 | Outpatient (REF) | payer OTHER, SELFPAY ==
[2020-10-31 05:01] LABS: CT PCR NOT DETECTED (Not Detect.); NG PCR NOT DETECTED (Not Detect.)
[2020-10-31 08:48] LABS: BV Int Neg Control Negative (Negative); BV Int Pos Control Positive (Positive)
== END 2020-10-30 13:46 | disposition home or self-care (01) ==
LOC: HO.LAB 13:45
PROVIDERS: PCP Internal Medicine; Visit Provider Advanced Practice Midwife
DX: N89.8 Other specified noninflammatory disorders of vagina (principal); B37.3 Candidiasis of vulva and vagina; I26.99 Other pulmonary embolism without acute cor pulmonale; Z20.2 Contact with and (suspected) exposure to infections with a predominantly sexual mode of transmission; Z86.16 Personal history of COVID-19; Z79.899 Other long term (current) drug therapy; Z79.01 Long term (current) use of anticoagulants; Z87.891 Personal history of nicotine dependence
CPT/HCPCS: 87480; 87491; 87510; 87591; 87660; 99212

== ENCOUNTER → 2020-11-12 10:31 | Outpatient (BNVA) | payer OTHER, SELFPAY | PROVIDERS: PCP Internal Medicine; Visit Provider Advanced Practice Midwife ==

== ENCOUNTER 2020-11-12 11:41 | Emergency (ER) | payer OTHER, SELFPAY ==
[2020-11-12 12:34] VITALS: BP 133/81; PULSE 84; RESP 16; TEMP 36.7; O2SAT 94; BMI 35.6
[2020-11-12] MEDS: cephALEXin 500 MG CAPSULE PO (13:46)
--- NOTE | 2020-11-12 13:55 | ED_ITS ---
HPI - Extremity Problem General Chief complaint: Extremity Injury, Upper Stated complaint: swollen finger Time Seen by Provider: 11/12/20 12:53 History of Present Illness HPI Narrative: Patient complains of right pinky finger redness and there is a sore in the middle of it She is concerned as she had new sexual partner and is worried could this be a herpes infection She has no genital complaint no sores no discharge and is not aware of any STD history in her partner Related Data Home Medications Medication Instructions Recorded Confirmed Tello Persaud [facility] 09/24/20 10/30/20 olanzapine 1 tab PO DAILY 09/24/20 10/30/20 trazodone 1 tab PO BEDTIME PRN 09/24/20 10/30/20 Previous Rx's Medication Instructions Recorded rivaroxaban [Xarelto] 15 mg PO BID 21 Days #42 tab 09/26/20 albuterol sulfate 0.63 mg/3 mL 0.63 mg INHALATION Q4-6H PRN #90 ml 10/02/20 solution for nebulization albuterol sulfate 90 mcg/actuation 1 puff INHALATION QID PRN 30 Days 10/02/20 aerosol inhaler #6.7 g rivaroxaban 20 mg tablet 20 mg PO DAILY 30 Days #30 tab 10/02/20 clotrimazole 1 % vaginal cream 1 appful VAGINAL BEDTIME #45 g 10/30/20 fluconazole 150 mg tablet 150 mg PO Q3D #2 tab 10/30/20 metronidazole 500 mg tablet 2,000 mg PO ONCE 1 Days #4 tab 11/06/20 cephalexin 500 mg PO QID 7 Days #28 tab 11/12/20 fluconazole 150 mg tablet 150 mg PO ONCE PRN 1 Days #1 tab 11/21/20 Allergies Allergy/AdvReac Type Severity Reaction Status Date / Time No Known Allergies Allergy Verified 11/21/20 08:58 [No Known Allergies*] Review of Systems Review of Systems: left pinky finger rash and discomfort Negatives are no fever no chills no sores in the throat no sore throat no difficulty breathing no numbness weakness or tingling and no other rash on the body Yes all other systems are reviewed and are negative PMFSH Past Medical History Source: nursing notes reviewed Medical History Asthma COVID-19 Pneumonia Pulmonary embolism Sleeping difficulties Family History Family History Mother Hypertension Father No problems noted. Social History Social History Household Members: Family Housing: Apartment Do you presently have visiting nurse or other home services: No Alcohol intake: never Second Hand Smoke Exposure: No service: No Current occupational status: employed Physical Exam Vital Signs: Vital Signs: Last Vital Signs Temp 98.0 F 11/12/20 12:34 Pulse 84 11/12/20 12:34 Resp 16 11/12/20 12:34 BP 133/81 11/12/20 12:34 Pulse Ox 94 11/12/20 12:34 Body Mass Index 35.6 General appearance no acute distress The pharynx is clear without redness swelling or exudate Neck is supple Respiratory no distress The left pinky has what appears to be a vesicular rash, there is surrounding erythema no wound there is no discharge there is full range of motion in all joints, tendon function is full and normal in both flexion and extension Extremities are full range of motion x4 Skin no other rash Neuro no gross motor sensory deficit Course Course Course Narrative: Possible herpetic nataliia with secondary infection so treated with antibiotic and herpes culture was done MDM - Extremity (Nontraumatic) Lab Data Labs: Lab Results 11/12/20 Range/Units 13:48 Herpes Simplex Culture SEE NOTE Discharge Plan Discharge Clinical Impression: Cellulitis Patient Disposition: Home, Self-Care Additional Instructions: Your finger seems to be infected so we are treating with Keflex antibiotic The sore in the middle of the finger could be something called a herpetic nataliia which the gets better on its own over 1-2 weeks, and is not and sexually transmitted infection Return to the ER in 2-3 days for recheck Return any time for spreading redness, worse pain and swelling, fever, any worse condition or any concerns Prescriptions: New cephalexin 500 mg tablet 500 mg PO QID 7 Days Qty: 28 RF: 0 No Action metronidazole [Flagyl] 500 mg tablet 2,000 mg PO ONCE 1 Days Qty: 4 RF: 0 trazodone 50 mg tablet 1 tab PO BEDTIME PRN (Reason: insomnia) RF: 0 olanzapine 10 mg tablet 1 tab PO DAILY RF: 0 (DME) Tello Persaud [facility] Spacer inhalation DIRECTED RF: 0 Xarelto 15 mg tablet 15 mg PO BID 21 Days Qty: 42 RF: 0 Xarelto 20 mg tablet 20 mg PO DAILY 30 Days Qty: 30 RF: 6 albuterol sulfate 90 mcg/actuation HFA aerosol inhaler 1 puff inhalation QID PRN (Reason: wheezing) 30 Days Qty: 6.7 RF: 0 albuterol sulfate 0.63 mg/3 mL solution for nebulization 0.63 mg inhalation Q4-6H PRN (Reason: shortness of breath or wheezing) Qty: 90 RF: 0 fluconazole [Diflucan] 150 mg tablet 150 mg PO ONCE PRN (Reason: personal) 1 Days Qty: 1 RF: 0 clotrimazole 1 % cream 1 appful vaginal BEDTIME Qty: 45 RF: 3 fluconazole 150 mg tablet 150 mg PO Q3D Qty: 2 RF: 1 Stand Alone Forms: Work/School Release Interventions: ED Discharge Assessment Last Done: 11/12/20 14:14 Discharge Date/Time: 11/12/20 14:15
== END 2020-11-12 14:15 | disposition home or self-care (01) ==
PROVIDERS: Physician Assistant Medical; Emergency Provider Emergency Medicine; PCP Internal Medicine
DX: L03.011 Cellulitis of right finger (principal); M79.644 Pain in right finger(s); Z86.711 Personal history of pulmonary embolism; Z87.01 Personal history of pneumonia (recurrent); Z86.16 Personal history of COVID-19; Z79.01 Long term (current) use of anticoagulants
CPT/HCPCS: 87255; 99212; 99283

== ENCOUNTER 2020-11-21 08:34 | Outpatient (REF) | payer OTHER, SELFPAY ==
[2020-11-21 12:18] LABS: Syphilis Screen Nonreactive (Nonreactive)
[2020-11-21 14:23] LABS: CT PCR NOT DETECTED (Not Detect.); NG PCR NOT DETECTED (Not Detect.)
[2020-11-22 10:31] LABS: Herpes Simplex Type 2 IgG <0.90 index
[2020-11-22 12:55] LABS: BV Int Neg Control Negative (Negative); BV Int Pos Control Positive (Positive)
[2020-11-24 03:47] LABS: HBc Num1 0.13 S/CO (0.00-0.79); Hepatitis B Core Antibody Nonreactive (Nonreactive); ~HepC Num1 0.12 S/CO (0.00-0.79); ~Hepatitis C Antibody Nonreactive (Nonreactive)
[2020-11-24 03:55] LABS: HIV AB/AG Nonreactive (Nonreactive); HIV Num 1 0.12 S/CO (0.00-0.99)
== END 2020-11-21 08:35 | disposition home or self-care (01) ==
LOC: HO.LAB 08:34
PROVIDERS: PCP Internal Medicine; Visit Provider Advanced Practice Midwife
DX: N76.0 Acute vaginitis (principal); R22.9 Localized swelling, mass and lump, unspecified; Z20.2 Contact with and (suspected) exposure to infections with a predominantly sexual mode of transmission
CPT/HCPCS: 36415; 86695; 86696; 86704; 86780; 86803; 87389; 87480; 87491; 87510; 87591; 87660; 99212

== ENCOUNTER 2022-01-04 14:05 | Outpatient (REF) | payer OTHER, SELFPAY ==
[2022-01-04 15:43] LABS: Syphilis Screen Nonreactive (Nonreactive)
[2022-01-04 16:08] LABS: Amphetamine Screen Urine Not Detected (Not Detect); Barbiturates, Urine Not Detected (Not Detect); Benzodiazepines Screen Urine Not Detected (Not Detect); Cannabinoid Screen Urine Not Detected (Not Detect); Cocaine Screen Urine Not Detected (Not Detect); Fentanyl, urine Not Detected (Not Detect); Opiate Screen Urine Not Detected (Not Detect); Phencyclidine Screen Urine Not Detected (Not Detect)
[2022-01-05 07:08] LABS: HIV AB/AG Nonreactive (Nonreactive); HIV Num 1 0.07 S/CO (0.00-0.99)
== END 2022-01-04 14:06 | disposition home or self-care (01) ==
LOC: HO.LAB 14:05
PROVIDERS: PCP Internal Medicine; Visit Provider Internal Medicine
DX: Z11.4 Encounter for screening for human immunodeficiency virus [HIV] (principal); Z02.83 Encounter for blood-alcohol and blood-drug test; Z20.2 Contact with and (suspected) exposure to infections with a predominantly sexual mode of transmission
CPT/HCPCS: 80307; 86780; 87389

== ENCOUNTER 2022-01-04 17:13 | Outpatient (REF) | payer OTHER, SELFPAY | END 2022-01-04 17:14 | disposition home or self-care (01) | LOC: HO.HMGCLNP 17:13 | PROVIDERS: Visit Provider Internal Medicine | DX: Z13.89 Encounter for screening for other disorder (principal) ==

== ENCOUNTER 2023-03-08 13:00 | Outpatient (AMB) | payer OTHER, SELFPAY ==
--- NOTE | 2023-03-08 13:03 | A.OFFPC_ITS ---
Intake Visit Reasons: sore throat, bad taste in mouth for 1 month Allergies No Known Allergies [No Known Allergies*] Allergy (Verified 06/12/22 13:15) Tobacco use date assessed: 07/14/21 [facility] Medical History Asthma COVID-19 HSV (herpes simplex virus) infection Mild persistent asthma, uncomplicated Moderate recurrent major depression Pneumonia PUD (peptic ulcer disease) Pulmonary embolism Sleeping difficulties STD exposure Surgical History No history of previous surgery Family History Mother Hypertension Father No problems noted. Other Mental health disorder Social History Household Members: Family Housing: Apartment Do you presently have visiting nurse or other home services: No Alcohol intake: never Patient Tobacco Use Status: Former Tobacco user Cigarettes Per Day: 5 e-Cigarette/Vaping Use: Never Used Second Hand Smoke Exposure: Yes service: No Current occupational status: unemployed Cognitive needs: No Hearing needs: No Vision needs: No Female Reproductive History Menstrual Age of Menarche: 11 Questionnaire Thrive Questionnaire Date Thrive assessed: 07/14/21 JOHN-7 AMB Questionnaire JOHN-7 Date JOHN - 7 assessed: 07/14/21 Source: Developed by Drs. Rufus Lema, Harleen Bonner, Girish Duggan and colleagues, with an educational shane from [email or web address]. Physical exam (Primary Care) Tobacco/Smoking Status: Tobacco use Status Tobacco use date assessed 07/14/21 01/04/22 13:32 Patient Tobacco Use Status Former Tobacco user 06/12/22 12:53 e-Cigarette/Vaping Use Never Used 01/04/22 13:32 Thrive Assessment: Date of Thrive Assessment Date Thrive assessed 07/14/21 11/03/22 09:52 Coding
--- NOTE | 2023-03-08 13:03 | MHC.PC.OV ---
Intake Visit Reasons: sore throat, bad taste in mouth for 1 month Allergies No Known Allergies [No Known Allergies*] Allergy (Verified 03/08/23 13:05) Tobacco use date assessed: 03/08/23 Dental Screening Dental Screen Date: 03/08/23 Did you have a dental visit in the last 12 months?: Yes Did you have a dental problem in the last 6 months where you did not have access to dental care?: No Was dental information given to patient?: Patient has dentist HPI HPI Comments History of Present Illness Details 20-year-old female past history significant for major depression, pulmonary embolism asthma. Patient Dr. Gregg last seen in December 2021. Patient presents today for a telehealth appointment for bad taste in mouth x1 month. Patient denies sore throat. Patient reports that she did have a throat swab as well as STI testing for gonorrhea and chlamydia which were negative. Patient reports that she has been coughing up yellow-green sputum and nasal congestion for 1 month. Denies sinus pain or pressure in denies fever. Patient also reports has been having to use her albuterol inhaler more frequently due to shortness of breath and wheezing. Patient states she has swabbed herself for COVID 3 days ago which was negative. Patient requesting prednisone for shortness of breath and wheezing. [facility] Medical History Asthma COVID-19 HSV (herpes simplex virus) infection Mild persistent asthma, uncomplicated Moderate recurrent major depression Pneumonia PUD (peptic ulcer disease) Pulmonary embolism Sleeping difficulties STD exposure Surgical History No history of previous surgery Family History Mother Hypertension Father No problems noted. Other Mental health disorder Social History Household Members: Family Housing: Apartment Do you presently have visiting nurse or other home services: No Alcohol intake: never Patient Tobacco Use Status: Former Tobacco user Tobacco use type: Cigarette Cigarettes Per Day: 5 e-Cigarette/Vaping Use: Never Used Second Hand Smoke Exposure: Yes service: No Current occupational status: unemployed Cognitive needs: No Hearing needs: No Vision needs: No Female Reproductive History Menstrual Age of Menarche: 11 Questionnaire PHQ-9 Over the last 2 weeks, how often have you been bothered by any of the following problems? 1. Little interest or pleasure in doing things: several days 2. Feeling down, depressed, or hopeless: more than half the days 3. Trouble falling or staying asleep, or sleeping too much: nearly every day 4. Feeling tired or having little energy: more than half the days 5. Poor appetite or overeating: nearly every day 6. Feeling bad about yourself - or that you are a failure or have let yourself or your family down: nearly every day 7. Trouble concentrating on things, such as reading the newspaper or watching television: not at all 8. Moving or speaking so slowly that other people could have noticed. Or the opposite - being so fidgety or restless that you have been moving around a lot more than usual: not at all 9. Thoughts that you would be better off or of hurting yourself in some way: several days Total score: 15 Depression Screening Interpretation: Positive Depression Screening Follow-up: In treatment and Other (on trazodone ) Source: Developed by Drs. Rufus Lema, Harleen Bonner, Girish Duggan and colleagues, with an educational shane from [employer]. Thrive Questionnaire Date Thrive assessed: 03/08/23 I am a: Patient What is your living situation today?: I have a steady place to live Within the past 12 months, did the food you bought not last and you didn't have the money to get more?: Never true Within the past 12 months, did you worry whether your food would run out before you got money to buy more?: Never true Do you have trouble paying for medicines?: No Do you have trouble getting transportation to medical appointments?: No Do you have trouble paying your heating and electricity bill?: No Do you have trouble taking care of your child, family member or friend?: No Do you have trouble with day-to-day activities such as bathing, preparing meals, shopping, managing finances, etc.?: No Are you currently unemployed and looking for a job?: No Are you interested in more education?: No Currently or been in a relationship where the following occur: no concerns reported AUDIT C Alcohol Use Questionnaire (AUDIT-C) 1. How often do you have a drink containing alcohol?: Never Total Score: 0 Score Reviewed/Action Taken: No JOHN-7 AMB Questionnaire JOHN-7 Date JOHN - 7 assessed: 03/08/23 Feeling nervous, anxious, or on edge: 2 = More than half the days Not being able to stop or control worryin = More than half the days Worrying too much about different things: 2 = More than half the days Trouble relaxin = More than half the days Being so restless that it is hard to sit still: 1 = Several days Becoming easily annoyed or irritable: 2 = More than half the days Feeling afraid as if something awful might happen: 1 = Several days Total JOHN-7 score (0-4 normal; 5-9 mild; 10-14 moderate; 15-21 severe): 12 Source: Developed by Drs. Rufus Lema, Harleen Bonner, Girish Duggan and colleagues, with an educational shane from [employer]. Review of Systems Const Denies chills, Denies fatigue, Denies fever(s) and Denies poor appetite Eyes Denies no additional complaints ENT Reports Normal hearing present, Reports halitosis, Reports nasal congestion, Reports nasal discharge, Denies sinus pain, Denies sinus pressure and Denies sore throat Card Denies chest pain, Denies syncope, Denies rapid heart rate and Reports dyspnea Resp Reports cough and Reports dyspnea GI Denies change in stool character, Denies constipation, Denies diarrhea, Denies nausea and Denies vomiting Denies urinary frequency, Denies dysuria and Denies urinary urgency Neuro Reports Normal hearing present, Denies confusion and Denies syncope Psych Denies confusion Endo Denies fatigue Physical exam (Primary Care) Tobacco/Smoking Status: Tobacco use Status Tobacco use date assessed 03/08/23 03/08/23 13:07 Patient Tobacco Use Status Former Tobacco user 03/08/23 13:07 Tobacco use type Cigarette 03/08/23 13:07 e-Cigarette/Vaping Use Never Used 03/08/23 13:07 PHQ-9: PHQ-9 Score PHQ-9: Total score 15 03/08/23 13:10 Depression Screening Interpretation: Positive Depression Screening Follow-up: In treatment and Other (on trazodone ) Thrive Assessment: Date of Thrive Assessment Date Thrive assessed 03/08/23 03/08/23 13:07 Currently or been in a relationship where the following occur: no concerns reported Const General: No confusion Orientation/consciousness: No confusion Neuro General: No confusion Cranial nerves: Yes Normal hearing present Telehealth Telehealth Location of provider rendering services: practice address Location of patient: address on file Patient Identification confirmed using: Name, : Yes Telehealth method: video (Android) Patient verbally consented to treatment: Yes Patient verbally consented to billing insurance company: Yes Patient informed of any privacy concerns related to visit: Yes Minutes spent on Phone/Video with Pt.: 6 Assessment and Plan Assessment & Plan (1) Asthma exacerbation: Code(s): J45.901 - Unspecified asthma with (acute) exacerbation Plan: Prednisone 40 mg x 5 days sent to patient's pharmacy for acute asthma exacerbation likely related to upper respiratory infection. (2) URI (upper respiratory infection): Code(s): J06.9 - Acute upper respiratory infection, unspecified Plan: Azithromycin sent to patient's pharmacy for ongoing cough with yellow green sputum production x1 month. Signs and symptoms reviewed with patient when to follow-up with PCP or seek medical attention. Medications: New azithromycin For 250 mg dose pack: take 500 mg today (day 1), then 250 mg for 4 days (days 2-5) PO 6 tabs 0RF prednisone 40 mg (2 x 20 mg) PO DAILY 10 tabs 0RF J06.9 - Acute upper respiratory infection, unspecified, J45.901 - Unspecified asthma with (acute) exacerbation Coding Level of Care Code Tele Est Pt Level 3 (38485) Diagnoses Asthma exacerbation J45.901 URI (upper respiratory infection) J06.9 Additional Codes PHQ-9 - 29629 - PHQ-9 Billing: ([id number])
== END 2023-03-08 14:03 | disposition home or self-care (01) ==
PROVIDERS: PCP Internal Medicine; Visit Provider Nurse Practitioner Family
DX: J45.901 Unspecified asthma with (acute) exacerbation (principal); J06.9 Acute upper respiratory infection, unspecified
CPT/HCPCS: 99213

== ENCOUNTER 2023-04-12 05:08 | Inpatient (IN) | payer OTHER, SELFPAY ==
--- NOTE | 2023-04-12 | ECG_ITS ---
Test Reason : CRISIS Blood Pressure : / mmHG Vent. Rate : 086 BPM Atrial Rate : 086 BPM P-R Int : 166 ms QRS Dur : 076 ms QT Int : 366 ms P-R-T Axes : 062 070 029 degrees QTc Int : 437 ms Normal sinus rhythm Normal ECG When compared with ECG of 24-SEP-2020 19:37, No significant change was found Referred By: Pam Rubin Electronically Signed By:EDWINA CORNEJO MD
[2023-04-12 05:27] VITALS: BP 140/70; PULSE 82; O2SAT 99
[2023-04-12 05:29] VITALS: BMI 26.9
[2023-04-12 05:36] VITALS: BP 128/97; PULSE 97; RESP 18; TEMP 36.7; O2SAT 97
--- NOTE | 2023-04-12 05:41 | PC.NURSE ---
pt LIN from the street of [place]. pt found on the ground, when asked if SI, pt told EMS yes and that she needed to go to hospital. pt states i do not want to hurt myself, i do not do drugs, my daughter does drugs, i came here to help her. pt denies SI/HI but states her daughter is suicidal. pt denies drug use. pt visibly restless. as pt was changing over this rn noticed rash on bilateral breasts, chest and stomach. pt changed over, belongings secured in POD closet. pt has 1:1 sitter.
--- NOTE | 2023-04-12 05:58 | ED_ITS ---
HPI - Psych General Chief Complaint: Psychiatric Symptoms Stated Complaint: EVALUATION Time Seen by Provider: 04/12/23 05:32 Source: patient, family and old records reviewed Mode of arrival: EMS Limitations: other (poor cooperation) History of Present Illness HPI Narrative: 28 yo female with PMH of schizophrenia and psychosis here with c/o stating she came back from [facility] and she is god and how did we not get the message. she then called me office and wants to know whats up with the questions. she was found wandering. She is normally from [place]. She denies drug use. She then states her daughter does drugs and the child is making her body move because her daughter is now inside her body. complaint: anxiety and substance abuse Onset (ago): unknown Duration: constant History of same: Yes Exacerbating factors: drug use Context: not taking psychiatric medications and significant life stressor Associated psychiatric symptoms: depression, racing thoughts and delusions Associated symptoms: denies other symptoms Treatments prior to arrival: placed on mental health hold Related Data Home Medications Medication Instructions Recorded Confirmed inhalational spacing device 09/24/20 01/04/22 (Tello Persaud [facility] spacer) Previous Rx's Medication Instructions Recorded albuterol sulfate 0.63 mg/3 mL 0.63 mg (3 mL) inhalation Q4-6H 10/02/20 solution for nebulization PRN shortness of breath or wheezing #90 mL prochlorperazine maleate 10 mg 10 mg PO Q8H PRN nausea and 03/09/21 tablet vomiting 30 days #90 tabs albuterol sulfate 90 mcg/actuation 1 puff inhalation QID PRN wheezing 07/14/21 aerosol inhaler 30 days #6.7 grams olanzapine 10 mg tablet 10 mg PO DAILY #30 tabs 02/24/22 dolutegravir 10 mg tablet (Tivicay) 50 mg (5 x 10 mg) PO DAILY 30 days 03/29/22 #150 tabs emtricitabine 200 mg-tenofovir 1 tab PO DAILY 30 days #30 tabs 04/23/22 disoproxil fumarate 300 mg tablet (Truvada) trazodone 50 mg tablet 50 mg PO BEDTIME PRN for insomnia 04/23/22 #30 tabs melatonin 10 mg capsule 10 mg PO BEDTIME PRN sleep 90 days 11/02/22 #90 caps Ventolin HFA 90 mcg/actuation 2 puff inhalation Q6H PRN 11/16/22 aerosol inhaler (albuterol sulfate) shortness of breath or wheezing 30 days #8 grams hydroxyzine pamoate 50 mg capsule 50 mg PO Q8H PRN anxiety 90 days 03/02/23 (Vistaril) #270 caps quetiapine 50 mg tablet 50 mg PO TID 90 days #270 tabs 03/02/23 azithromycin 250 mg tablet See Rx Instructions PO .COMPLEX #6 03/08/23 tabs prednisone 20 mg tablet 40 mg (2 x 20 mg) PO DAILY #10 tabs 03/08/23 albuterol sulfate 90 mcg/actuation 2 puff inhalation Q4-6H PRN 04/04/23 aerosol inhaler (Ventolin HFA) shortness of breath or wheezing #8.5 grams Allergies Allergy/AdvReac Type Severity Reaction Status Date / Time No Known Allergies Allergy Verified 03/08/23 13:05 [No Known Allergies*] Review of Systems Review of Systems: ROS unable to be obtained due to agitation/psychosis [facility] Past Medical History Source: old records reviewed Medical History Schizophrenia STD exposure Moderate recurrent major depression PUD (peptic ulcer disease) HSV (herpes simplex virus) infection Mild persistent asthma, uncomplicated Pneumonia Pulmonary embolism Asthma COVID-19 Sleeping difficulties Surgical History No history of previous surgery Family History Family History Mother Hypertension Father No problems noted. Other Mental health disorder Social History Social History Household Members: Family Housing: Apartment Do you presently have visiting nurse or other home services: No Unable to assess alcohol history related to: Unable to respond Alcohol intake: never Patient Tobacco Use Status: Former Tobacco user Tobacco use type: Cigarette Cigarettes Per Day: 5 e-Cigarette/Vaping Use: Never Used Second Hand Smoke Exposure: Yes Use of substances other than those prescribed or required for medical reasons: Unable to respond Patient : No service: No Current occupational status: unemployed Cognitive needs: No Hearing needs: No Vision needs: No Physical Exam Vital Signs: Vital Signs: Last Vital Signs Temp 98.0 F 04/12/23 05:36 Pulse 97 04/12/23 05:36 Resp 18 04/12/23 05:36 BP 128/97 H 04/12/23 05:36 Pulse Ox 97 04/12/23 05:36 O2 Del Method Room Air 04/12/23 05:36 BMI result Body Mass Index 26.9 Appearance: Alert. Oriented X 1 mild acute distress. anxious agitated unable to sit still scratching herself. disheveled poor hygiene, her conversation is loud and all over the place and nonsensical at times Eyes: Pupils equal, round and reactive to light. ENT: Pharynx midly dry MM Neck: Normal inspection. Neck supple. CVS: tachycardic heart rate and rhythm. Pulses normal. Respiratory: No respiratory distress. Breath sounds normal. Abdomen: Soft and nontender. Skin: Skin warm and dry. Normal skin color. Normal skin turgor. Extremities: No lower extremity edema. No calf ttp Neuro: Oriented X 1. No motor deficit. No sensory deficit. CN2-12 appear intact Course Course Course Narrative: call to sister Iqra - patient has schizophrenia sister was shocked she was in [place]. She has missed her medications in the past. She does do drugs as well. She has been in a custody [place] x 2 years regarding her daughter. [phone] Iqra Reevaluation(s) Reevaluation #1: Physician observation started at 619am. Patient placed in physician observation because the patient needed more time for CARE team to assess the need for psych admission. At the time observation was started the patient's vitals were stable, patient is alert but agitated and delusional, Neuro: nonfocal, CV RRR, Lungs clear Medications Administered Discontinued Medications Generic Name Dose Route Start Last Admin Trade Name Freq PRN Reason Stop Dose Admin Olanzapine 10 mg 04/12/23 05:43 04/12/23 06:00 Olanzapine Odt 10 Mg Tab.Rapdis TRANSLINGU 04/12/23 05:44 10 mg ONCE ONE Administration Medical Decision Making Medical Decision Making [facility] Narrative: 28 yo female with PMH of schizophrenia here found wandering I see no signs of head trauma at this time will need labs, EKG, PO zyprexa if she takes it. She states we can call her family which I am going to do to get additional history. She will be placed on section 12 given her presentation and concern for her safety. Differential Diagnosis Differential Diagnoses: The differential diagnosis associated with the presentation includes drug abuse, psychosis, schizophrenia Admission/Observation Consideration of admission/observation: Escalation of care including admission/observation considered observe until work up done and CARE team sees the patient Consult Healthcare Provider Management of the patient was discussed with: Behavioral Health Provider Lab Data MDM Lab Attestation statement: I reviewed the patient's lab results. Independent Historian Clinical information obtained from an independent historian. History obtained from or confirmed by: EMS and Other (sister) External Record Review External record reviewed: Inpatient record Discharge Plan Discharge Clinical Impression: Acute psychosis Patient Disposition: Still a Patient Prescriptions: No Action olanzapine 10 mg tablet 10 mg PO DAILY Qty: 30 5RF Tivicay 10 mg tablet 50 mg PO DAILY 30 Days Qty: 150 0RF emtricitabine-tenofovir (TDF) [Truvada] 200-300 mg tablet 1 tab PO DAILY 30 Days Qty: 30 0RF trazodone 50 mg tablet 50 mg PO BEDTIME PRN (Reason: for insomnia) Qty: 30 6RF melatonin 10 mg capsule 10 mg PO BEDTIME PRN (Reason: sleep) 90 Days Qty: 90 0RF albuterol sulfate [Ventolin HFA] 90 mcg/actuation HFA aerosol inhaler 2 puff inhalation Q6H PRN (Reason: shortness of breath or wheezing) 30 Days Qty: 8 2RF hydroxyzine pamoate [Vistaril] 50 mg capsule 50 mg PO Q8H PRN (Reason: anxiety) 90 Days Qty: 270 0RF quetiapine 50 mg tablet 50 mg PO TID 90 Days Qty: 270 0RF albuterol sulfate [Ventolin HFA] 90 mcg/actuation HFA aerosol inhaler 2 puff inhalation Q4-6H PRN (Reason: shortness of breath or wheezing) Qty: 8.5 0RF (DME) Tello Persaud [facility] Spacer inhalation DIRECTED albuterol sulfate 0.63 mg/3 mL solution for nebulization 0.63 mg inhalation Q4-6H PRN (Reason: shortness of breath or wheezing) Qty: 90 0RF azithromycin 250 mg tablet See Rx Instructions PO .COMPLEX Qty: 6 0RF Rx Instructions: For 250 mg dose pack: take 500 mg today (day 1), then 250 mg for 4 days (days 2-5) PO prednisone 20 mg tablet 40 mg PO DAILY Qty: 10 0RF prochlorperazine maleate 10 mg tablet 10 mg PO Q8H PRN (Reason: nausea and vomiting) 30 Days Qty: 90 6RF albuterol sulfate 90 mcg/actuation HFA aerosol inhaler 1 puff inhalation QID PRN (Reason: wheezing) 30 Days Qty: 6.7 2RF Interventions: [place]-Suicide Risk Severity Scale Last Done: 04/12/23 05:50
[2023-04-12] MEDS: OLANZapine ODT 10 MG TAB.RAPDIS TRANSLINGU (06:00)
--- NOTE | 2023-04-12 06:14 | PC.NURSE ---
pt placed on section 12 per order.
[2023-04-12 06:39] LABS: MANUAL DIFF FLAG NO
[2023-04-12 06:40] LABS: Basophils Absolute Auto 0.1 X10*3/uL (0.0-0.2); Basophils Percent Auto 0.4 % (0-2); Eosinophils Absolute Auto 0.1 X10*3/uL (0.0-0.4); Eosinophils Percent Auto 0.9 % (0-4); Hematocrit 34.8 % (37.0-47.0); Hemoglobin 11.8 g/dl (12.0-16.0); Imm Gran Abs Auto 0.06 X10*3/uL (0.00-0.03); Imm Gran Pct Auto 0.4 % (0.0-0.4); Lymphocytes Absolute Auto 1.6 X10*3/uL (1.2-4.9); Lymphocytes Percent Auto 11.5 % (20-40); Mean Corpuscular HGB Conc 33.9 g/dl (31.0-35.0); Mean Corpuscular Hemoglobin 29.1 pg (27.0-33.0); Mean Corpuscular Volume 85.9 fL (80.0-98.0); Mean Platelet Volume 10.8 fL (9.4-12.3); Monocytes Absolute Auto 1.1 X10*3/uL (0.1-1.2); Monocytes Percent Auto 8.2 % (2-11); Neutrophils Absolute Auto 10.6 x10*3/uL (2.0-8.3); Neutrophils Percent Auto 78.6 % (45-73); Platelet Count 288 X10*3/uL (160-400); Red Blood Count 4.05 X10*6/uL (4.20-5.50); Red Cell Distribution Width 13.5 % (11.0-16.0); White Blood Count 13.5 X10*3/uL (4.8-10.8)
[2023-04-12 06:49] LABS: COVID-19 Test Negative (Negative); IDNOW Serial# BCCEAD1C
[2023-04-12 06:59] LABS: Acetaminophen LAB < 17 mcg/mL (<30); Salicylate < 5.0 mg/dL (15-30)
[2023-04-12 07:04] LABS: Alanine Aminotransferase 34 U/L (0-31); Albumin Level 4.1 g/dL (3.5-5.0); Alkaline Phosphatase 74 U/L (39-117); Anion Gap 20 (12-20); Aspartate Amino Transferase 50 U/L (5-31); Bilirubin Direct 0.3 mg/dL (0.0-0.5); Bilirubin Total 0.6 mg/dL (0.0-1.0); Blood Urea Nitrogen 13 mg/dL (9-16); Carbon Dioxide 16 mmol/L (22-29); Chloride 106 mmol/L (96-108); Creatinine Clr Calc Pharmacy 119.9; Estimated Glomerular Filt Rate > 60; Glucose Random 67 mg/dL (60-115); Magnesium 2.2 mg/dL (1.6-2.6); Sodium 139 mmol/L (135-145); Total Protein 7.4 g/dL (6.5-8.0)
[2023-04-12 07:05] LABS: HCG Quantitative < 2 mIU/mL
--- NOTE | 2023-04-12 07:11 | PC.NURSE ---
assumed care of pt at 0700, pt resting quietly, RR even an unlabored, 1:1 at bedside, pending CARE team consult and urine sample. no new orders at this time.
[2023-04-12 07:36] LABS: Ethanol < 10 mg/dL
[2023-04-12] MEDS: 0.9 % Sodium Chloride 1,000 ML 999 ML IV ×2 (07:57→08:11)
[2023-04-12 07:58] VITALS: BP 135/72; PULSE 107; RESP 16; TEMP 36.6; O2SAT 97
--- NOTE | 2023-04-12 08:06 | PC.NURSE ---
20G IV placed right wrist, NS running per provider order.
[2023-04-12] MEDS: Potassium Chloride Packet 20 MEQ PACKET 40 MEQ PO (08:42)
--- NOTE | 2023-04-12 09:07 | PC.NURSE ---
pt medicated per MAR, pending CARE team consult, eating breakfast, 1:1 at bedside.
[2023-04-12 10:44] VITALS: BP 129/67; PULSE 103; RESP 16; TEMP 36.8; O2SAT 99
[2023-04-12 10:45] LABS: Anion Gap 12 (12-20); Blood Urea Nitrogen 11 mg/dL (9-16); Calcium 8.1 mg/dL (8.4-10.2); Carbon Dioxide 20 mmol/L (22-29); Chloride 112 mmol/L (96-108); Creatinine Clr Calc Pharmacy 125.8; Estimated Glomerular Filt Rate > 60; Glucose Random 97 mg/dL (60-115); Potassium 3.6 mmol/L (3.3-5.1); Sodium 140 mmol/L (135-145)
[2023-04-12 12:29] LABS: Appearance Urine Clear; Color Urine Yellow; Glucose Urine UA Negative (Negative); Leukocyte Esterase Urine Negative (Negative); Nitrite Urine Negative (Negative); Specific Gravity - Urine 1.025 (1.005-1.025); Urine Blood Negative (Negative); Urine Ketones 80 mg/dL (Negative); Urine Protein Trace mg/dL (Neg-Trace)
[2023-04-12 12:32] LABS: Bacteria Urine Trace (None Seen); Hyaline Casts Urine 0-2 /LPF (0-2); RBC Urine 0-2 /HPF (0-2); WBC Urine 0-5 /HPF (0-5)
[2023-04-12 12:38] LABS: Amphetamine Screen Urine Not Detected (Not Detect); Barbiturates, Urine Not Detected (Not Detect); Benzodiazepines Screen Urine Not Detected (Not Detect); Cannabinoid Screen Urine Not Detected (Not Detect); Cocaine Screen Urine POSITIVE (Not Detect); Fentanyl, urine POSITIVE (Not Detect); Opiate Screen Urine Not Detected (Not Detect); Phencyclidine Screen Urine Not Detected (Not Detect)
--- NOTE | 2023-04-12 17:00 | PC.NURSE ---
MD Cuello aware pt needs another CK per inpatient request- ordered- ECG in process. pt resting. no distress noted. resting. eating well.
[2023-04-12 17:36] VITALS: BP 129/58; PULSE 93; RESP 18; TEMP 36.5; O2SAT 98
--- NOTE | 2023-04-12 18:24 | PC.NURSE ---
report given to reyes rahman
--- NOTE | 2023-04-12 19:06 | PC.NURSE ---
+CMS. calm, coop. walked to wheelchair. has belongings. alert. no respiratory distress noted.
--- NOTE | 2023-04-12 19:28 | PC.NURSE ---
Pt brought to unit from ED POD at 1905. Pt VSS, T 96.8, BP 122/58,P 98, 97 %. Wt 182.8, height 5'-2 . Skin check completed. Pt has several swollen areas, hanley and cuts. Pt bilateral feet swollen, warm to touch and pain 9/10. Right large toe area has a closed laceration approx. 2.5 cm. Right hand swollen, 4th finger swollen red. Multiple hanley noted 1 cm in size. Left hand small finger swollen. raised red rash in breast area. Rash in bilateral inguinal area, bright red and painful per pt. Pt unable to remmber how she acquired all these injuries. Pt reports painful to walk , walking with limps.
[2023-04-12 19:30] VITALS: BP 122/58; PULSE 98; RESP 16; TEMP 36.1; O2SAT 97
[2023-04-12] MEDS: hydrOXYzine HCL 25 MG TABLET PO (22:24)
[2023-04-12] MEDS: traZODone HCL 50 MG TABLET PO (22:24)
--- NOTE | 2023-04-13 01:20 | PC.ADMIT ---
Neeta Stokes is a 28yo single female admitted to the unit from ED, [facility] on CV for treatment of SI and Unspecified bipolar disorder. Pt was presented to the ED via ambulance after she was encountered wandering on the street by EMS endorsing SI with no clear plan or intend. Pt states that she came from [facility] and she is god. She is alert and oriented X3, not to situation, calm and pleasant to staff, mood is anxious and affect is depressed. Pt urine is positive to Fentanyl and cocaine, said she takes alcohol occasionally. Pt reported hearing voices but denies SI and HI, Said she feels safe on the unit.Skin assessment review bilateral swollen feet that is warm to touch, hanley and cuts on fingers of both hands. rash in bilateral inguinal and breast areas, bright red and painful per Pt. call center support consultant provider and hospitalist informed but no order put in for hospitalist consultation yet. Treatment plan and safety tools initiated.
[2023-04-13 06:00] VITALS: BP 118/68; PULSE 89; TEMP 36.7; O2SAT 97
[2023-04-13] MEDS: Acetaminophen 325 MG TABLET 650 MG PO (08:49)
[2023-04-13 09:00] LABS: Estimated Average Glucose 82 mg/dL; Hemoglobin A1c % 4.5 % (<6.0)
--- NOTE | 2023-04-13 09:00 | ECG_ITS ---
Test Reason : qtc check Blood Pressure : / mmHG Vent. Rate : 079 BPM Atrial Rate : 079 BPM P-R Int : 152 ms QRS Dur : 082 ms QT Int : 368 ms P-R-T Axes : 025 063 028 degrees QTc Int : 421 ms Normal sinus rhythm Normal ECG When compared with ECG of 12-APR-2023 17:22, No significant change was found Referred By: Bebe Rhodes Electronically Signed By:EDWINA CORNEJO MD
[2023-04-13 09:08] LABS: Alanine Aminotransferase 32 U/L (0-31); Albumin Level 3.9 g/dL (3.5-5.0); Alkaline Phosphatase 69 U/L (39-117); Anion Gap 13 (12-20); Aspartate Amino Transferase 31 U/L (5-31); Bilirubin Total 0.2 mg/dL (0.0-1.0); Blood Urea Nitrogen 5 mg/dL (9-16); Carbon Dioxide 21 mmol/L (22-29); Chloride 111 mmol/L (96-108); Cholesterol 134 mg/dL (<200); Estimated Glomerular Filt Rate > 60; Glucose Fasting 97 mg/dL (60-99); Glucose Random 96 mg/dL (60-115); HDL Cholesterol 47 mg/dL (>40); LDL Cholesterol Calculated 72 mg/dL (<100); Sodium 141 mmol/L (135-145); Total Protein 7.3 g/dL (6.5-8.0); Triglycerides 79 mg/dL (<150)
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
[2023-04-13] MEDS: Nicotine 21 MG PATCH.TD24 TRANSDERMA (09:21)
[2023-04-13 09:30] LABS: Free T4 (Free Thyroxine) 1.02 ng/dL (0.71-1.85); Thyroid Stimulating Hormone 2.03 uIU/mL (0.32-4.0)
[2023-04-13 09:41] LABS: Folate 10.2 ng/mL (> or = 4.0); Vitamin B12 568 pg/mL (200-900)
[2023-04-13] MEDS: hydrOXYzine HCL 25 MG TABLET PO ×2 (13:39→20:43)
--- NOTE | 2023-04-13 15:51 | PM.EVENT ---
Event Note Date of Service: 04/13/23 Event Note: Patient is a 28-year-old female with a PMH significant for moderate persistent asthma, cocaine use disorder, and schizophrenic who was admitted to [facility] with acute psychosis. Medical consult for multiple skin complaints. During admission skin check patient apparently had diffuse red rash on her breasts in her inguinal skin folds. Pt showered last night and upon inspection this morning rash seems to have almost fully resolved. No indication for treatment at this time. Pt also complains of swollen and red second digit on right hand that has been occurring for the past few days. Pt also has superficial lesions to right foot on the medial aspect, and on the anterior and posterior left thigh, all of which do not appear to be grossly infected. Pt admits to smoking cocaine, but denies IVDU. Will treat pt for a cellulitis of the 2nd digit of right hand with doxycycline 100 mg p.o. x5 days. Time Spent With Patient Time: Total time managing care of this patient today ____ minutes.
[2023-04-13] MEDS: Doxycycline Monohydrate 100 MG CAPSULE PO (17:32)
[2023-04-13] MEDS: levonorgestreL 1.5 MG TABLET PO (17:32)
[2023-04-13 18:00] VITALS: BP 126/66; PULSE 86; TEMP 36.6; O2SAT 99
[2023-04-13] MEDS: Throat Lozenge, Medicated LOZENGE 1 LOZENGE MUCOUS MEM (20:43)
[2023-04-13] MEDS: traZODone HCL 50 MG TABLET PO (20:43)
[2023-04-13] MEDS: QUEtiapine Fumarate 100 MG TABLET PO (20:43)
[2023-04-14] MEDS: Throat Lozenge, Medicated LOZENGE 1 LOZENGE MUCOUS MEM ×2 (04:41→13:36)
[2023-04-14 07:22] LABS: HIV AB/AG Nonreactive (Nonreactive); HIV Num 1 0.05 S/CO (0.00-0.99)
[2023-04-14 07:29] LABS: Syphilis Screen Nonreactive (Nonreactive)
[2023-04-14 07:58] VITALS: BP 122/59; PULSE 85; RESP 16; TEMP 36.4; O2SAT 97
[2023-04-14] MEDS: Doxycycline Monohydrate 100 MG CAPSULE PO ×2 (09:19→21:13)
[2023-04-14] MEDS: QUEtiapine Fumarate 25 MG TABLET PO ×2 (09:19→17:13)
[2023-04-14] MEDS: Nicotine 21 MG PATCH.TD24 TRANSDERMA (09:21)
--- NOTE | 2023-04-14 09:23 | HO.PSYCHPN ---
Subjective Subjective Date of Service: 04/14/23 Reason For Visit: bipolar michealtorder Subjective Notes: Conditional Voluntary Interim History: Reviewed with . Patient reports feeling anxious today. Patient stated, I'm doing okay. The voices piss me off sometimes . Pt reports some voices today. Denies SI/HI/VH at this time. Pt is requesting increase in Seroquel. Medication Compliance: Yes Side effects from medications: No Attending Groups: Intermittent Review of Systems Constitutional: Reports as per HPI Eyes: Reports as per HPI Reports as per HPI Cardiovascular: Reports as per HPI Respiratory: Reports as per HPI Gastrointestinal: Reports as per HPI Genitourinary: Reports as per HPI Musculoskeletal: Reports as per HPI Skin/Breast: Reports as per HPI Reports as per HPI Psychiatric: Reports as per HPI Endocrine: Reports as per HPI Hematologic/Lymphatic: Reports as per HPI Allergic/Immunologic: Reports as per HPI Mental Status Exam Mental Status Exam Narrative: Pt is alert and oriented; behavior is cooperative and calm; dressed in casual attire; mood is described as anxious ; eye contact appropriate; Speech is normal rate, volume and prosody and not pressured; no psychomotor agitation/retardation present; thought process is organized and goal directed; Thought content is on tx; otherwise pertinent to relevant topics and without any delusional content, paranoid ideations or grandiosity; denies SI/HI/VH. reports minimal auditory hallucinations. Patients insight and judgment are poor but improving. Diagnostics Vital Signs (24Hr): Vital Signs - 24 hr 04/13/23 18:00 04/14/23 07:58 Temperature 98 F 97.5 F Pulse Rate 86 85 Respiratory Rate 16 Blood Pressure 126/66 122/59 L Pulse Oximetry 99 97 Oxygen Delivery Method Room Air Room Air BMI result Body Mass Index 26.9 Labs 04/12/23 06:37 04/13/23 08:28 Labs: Laboratory Results - last 48 hr 04/12/23 04/12/23 04/12/23 10:20 12:20 17:27 Sodium 140 Potassium 3.6 Chloride 112 H Carbon Dioxide 20 L Anion Gap 12 BUN 11 Creatinine 0.62 Estim Creat Clear Calc 125.8 Estimated GFR > 60 Random Glucose 97 Fasting Glucose Estimat Average Glucose Hemoglobin A1c % Calcium 8.1 L D Magnesium Total Bilirubin AST ALT Alkaline Phosphatase Total Creatine Kinase 1145 H 889 H Total Protein Albumin Triglycerides Cholesterol LDL Cholesterol, Calc HDL Cholesterol Vitamin B12 Folate TSH Free T4 Urine Color Yellow Urine Appearance Clear Urine pH 6.0 Ur Specific [place] 1.025 Urine Protein Trace Urine Glucose (UA) Negative Urine Ketones 80 Urine Blood Negative Urine Nitrite Negative Ur Leukocyte Esterase Negative Urine RBC 0-2 Urine WBC 0-5 Ur Squamous Epith Cells 6-10 Urine Bacteria Trace Hyaline Casts 0-2 Urine Opiates Screen Not Detected Urine Fentanyl Screen POSITIVE H Ur Barbiturates Screen Not Detected Ur Phencyclidine Scrn Not Detected Ur Amphetamines Screen Not Detected U Benzodiazepines Scrn Not Detected Urine Cocaine Screen POSITIVE H U Marijuana (THC) Screen Not Detected T.pallidum Ab (EIA) HIV 1&2 Ab/P24 Ag 4thGn 04/13/23 04/13/23 08:28 17:16 Sodium 141 Potassium 4.0 Chloride 111 H Carbon Dioxide 21 L Anion Gap 13 BUN 5 L Creatinine 0.60 Estim Creat Clear Calc 130.0 Estimated GFR > 60 Random Glucose 96 Fasting Glucose 97 Estimat Average Glucose 82 Hemoglobin A1c % 4.5 Calcium 9.0 D Magnesium 2.0 Total Bilirubin 0.2 AST 31 ALT 32 H Alkaline Phosphatase 69 Total Creatine Kinase 582 H Total Protein 7.3 Albumin 3.9 Triglycerides 79 Cholesterol 134 LDL Cholesterol, Calc 72 HDL Cholesterol 47 Vitamin B12 568 Folate 10.2 TSH 2.03 Free T4 1.02 Urine Color Urine Appearance Urine pH Ur Specific [place] Urine Protein Urine Glucose (UA) Urine Ketones Urine Blood Urine Nitrite Ur Leukocyte Esterase Urine RBC Urine WBC Ur Squamous Epith Cells Urine Bacteria Hyaline Casts Urine Opiates Screen Urine Fentanyl Screen Ur Barbiturates Screen Ur Phencyclidine Scrn Ur Amphetamines Screen U Benzodiazepines Scrn Urine Cocaine Screen U Marijuana (THC) Screen T.pallidum Ab (EIA) Nonreactive HIV 1&2 Ab/P24 Ag 4thGn Nonreactive Medications Medications Current Medications Acetaminophen (Acetaminophen 325 Mg Tablet) 650 mg PO Q6H PRN PRN Reason: Headache/Pain Mild Scale (1-3) Last Admin: 04/13/23 08:49 Dose: 650 mg Al Hydroxide/Mg Hydroxide (Magnesium Hydrox/Alum Hydrox 30 Ml Oral.Susp) 30 ml PO Q6H PRN PRN Reason: Heartburn/Nausea Benzocaine (Throat Lozenge, Medicated Lozenge) 1 lozenge MUCOUS MEM Q2H PRN PRN Reason: Sore Throat Last Admin: 04/14/23 04:41 Dose: 1 lozenge Doxycycline Monohydrate (Doxycycline Monohydrate 100 Mg Capsule) 100 mg PO Q12H [facility] Stop: 04/19/23 08:59 Hydroxyzine HCl (Hydroxyzine Hcl 25 Mg Tablet) 25 mg PO Q6H PRN PRN Reason: Anxiety Last Admin: 04/13/23 20:43 Dose: 25 mg Magnesium Hydroxide (Milk Of Magnesia 30 Ml Oral.Susp) 30 ml PO DAILY PRN PRN Reason: Constipation Nicotine (Nicotine 21 Mg Patch.Td24) 21 mg TRANSDERMA DAILY [facility] Last Admin: 04/13/23 09:21 Dose: 21 mg Quetiapine Fumarate (Quetiapine Fumarate 100 Mg Tablet) 100 mg PO BEDTIME GARRETT Last Admin: 04/13/23 20:43 Dose: 100 mg Quetiapine Fumarate (Quetiapine Fumarate 25 Mg Tablet) 25 mg PO DAILY [facility] Trazodone HCl (Trazodone Hcl 50 Mg Tablet) 50 mg PO BEDTIME MRX1 PRN PRN Reason: Insomnia Last Admin: 04/13/23 20:43 Dose: 50 mg Allergies Allergies Allergy/AdvReac Type Severity Reaction Status Date / Time No Known Allergies Allergy Verified 03/08/23 13:05 [No Known Allergies*] Assessment & Plan Assessment & Plan (1) Schizoaffective disorder: Status: Acute Code(s): F25.9 - Schizoaffective disorder, unspecified (2) Cocaine abuse: Status: Acute Code(s): F14.10 - Cocaine abuse, uncomplicated Plan Patient is a 28 year old female with hx of Bipolar d/o, PTSD and cocaine use who presented to [facility] via ambulance secondary to being encountered wandering on the street by EMS endorsing suicidal ideation with no plan or intent. Plan: CV 15 minute safety checks Referral to substance abuse program? referral to outpatient providers Start: Seroquel 25mg PO daily Seroquel 100mg PO bedtime levonorgestrel 1.5mg PO once Labs: HIV, RPR, BV panel, CTNG urine. 04/14: Patient reports feeling anxious today. Patient stated, I'm doing okay. The voices piss me off sometimes . Pt reports some voices today. Denies SI/HI/VH at this time. Pt is requesting increase in Seroquel. Seroquel increased to 25mg PO 0900,1500. Patient educated on: diagnosis, medication risk/benefits and therapeutic strategies Informed Consent: understands Reason for continued inpatient stay Substantial Risk for: med/psych decompensation Time Spent With Patient Time: Total time managing care of this patient today _30___ minutes.
[2023-04-14] MEDS: hydrOXYzine HCL 25 MG TABLET PO ×2 (13:36→21:13)
[2023-04-14] MEDS: traZODone HCL 50 MG TABLET PO (21:13)
[2023-04-14] MEDS: QUEtiapine Fumarate 100 MG TABLET PO (21:13)
[2023-04-15] MEDS: hydrOXYzine HCL 25 MG TABLET PO (05:20)
[2023-04-15 06:00] VITALS: BP 138/72; PULSE 88; TEMP 36.8; O2SAT 99
[2023-04-15] MEDS: Acetaminophen 325 MG TABLET 650 MG PO (06:49)
--- NOTE | 2023-04-15 09:21 | P.PNPSI_ITS ---
Subjective Subjective Date of Service: 04/15/23 Reason For Visit: bipolar irene Subjective Notes: Conditional Voluntary Interim History: Reviewed with . Patient reports feeling anxious and irritated Pt stated, I'm just waiting to leave here . She reports having auditory hallucinations. Denies SI/HI/VH. Medication Compliance: Yes Side effects from medications: No Attending Groups: Intermittent Review of Systems Constitutional: Reports as per HPI Eyes: Reports as per HPI Reports as per HPI Cardiovascular: Reports as per HPI Respiratory: Reports as per HPI Gastrointestinal: Reports as per HPI Genitourinary: Reports as per HPI Musculoskeletal: Reports as per HPI Skin/Breast: Reports as per HPI Reports as per HPI Psychiatric: Reports as per HPI Endocrine: Reports as per HPI Hematologic/Lymphatic: Reports as per HPI Allergic/Immunologic: Reports as per HPI Mental Status Exam Mental Status Exam Narrative: Pt is alert and oriented; behavior is cooperative and calm; dressed in casual attire; mood is described as anxious ; eye contact appropriate; Speech is normal rate, volume and prosody and not pressured; no psychomotor agitation/retardation present; thought process is organized and goal directed; Thought content is on tx; otherwise pertinent to relevant topics and without any delusional content, paranoid ideations or grandiosity; denies SI/HI/VH. reports minimal auditory hallucinations. Patients insight and judgment are poor but improving. Diagnostics Vital Signs (24Hr): Vital Signs - 24 hr 04/15/23 06:00 Temperature 98.3 F Pulse Rate 88 Blood Pressure 138/72 Pulse Oximetry 99 Oxygen Delivery Method Room Air BMI result Body Mass Index 26.9 Labs 04/12/23 06:37 04/13/23 08:28 Labs: Laboratory Results - last 48 hr 04/13/23 04/13/23 08:28 17:16 Vitamin B12 568 Folate 10.2 TSH 2.03 Free T4 1.02 T.pallidum Ab (EIA) Nonreactive HIV 1&2 Ab/P24 Ag 4thGn Nonreactive Medications Medications Current Medications Acetaminophen (Acetaminophen 325 Mg Tablet) 650 mg PO Q6H PRN PRN Reason: Headache/Pain Mild Scale (1-3) Last Admin: 04/15/23 06:49 Dose: 650 mg Al Hydroxide/Mg Hydroxide (Magnesium Hydrox/Alum Hydrox 30 Ml Oral.Susp) 30 ml PO Q6H PRN PRN Reason: Heartburn/Nausea Benzocaine (Throat Lozenge, Medicated Lozenge) 1 lozenge MUCOUS MEM Q2H PRN PRN Reason: Sore Throat Last Admin: 04/14/23 13:36 Dose: 1 lozenge Doxycycline Monohydrate (Doxycycline Monohydrate 100 Mg Capsule) 100 mg PO Q12H [facility] Stop: 04/19/23 08:59 Last Admin: 04/14/23 21:13 Dose: 100 mg Hydroxyzine HCl (Hydroxyzine Hcl 25 Mg Tablet) 25 mg PO Q6H PRN PRN Reason: Anxiety Last Admin: 04/15/23 05:20 Dose: 25 mg Magnesium Hydroxide (Milk Of Magnesia 30 Ml Oral.Susp) 30 ml PO DAILY PRN PRN Reason: Constipation Nicotine (Nicotine 21 Mg Patch.Td24) 21 mg TRANSDERMA DAILY [facility] Last Admin: 04/14/23 09:21 Dose: 21 mg Quetiapine Fumarate (Quetiapine Fumarate 100 Mg Tablet) 100 mg PO BEDTIME [facility] Last Admin: 04/14/23 21:13 Dose: 100 mg Quetiapine Fumarate (Quetiapine Fumarate 25 Mg Tablet) 25 mg PO BID@0900,1500 [facility] Last Admin: 04/14/23 17:13 Dose: 25 mg Trazodone HCl (Trazodone Hcl 50 Mg Tablet) 50 mg PO BEDTIME MRX1 PRN PRN Reason: Insomnia Last Admin: 04/14/23 21:13 Dose: 50 mg Allergies Allergies Allergy/AdvReac Type Severity Reaction Status Date / Time No Known Allergies Allergy Verified 03/08/23 13:05 [No Known Allergies*] Assessment & Plan Assessment & Plan (1) Schizoaffective disorder: Status: Acute Code(s): F25.9 - Schizoaffective disorder, unspecified (2) Cocaine abuse: Status: Acute Code(s): F14.10 - Cocaine abuse, uncomplicated Plan Patient is a 28 year old female with hx of Bipolar d/o, PTSD and cocaine use who presented to [facility] via ambulance secondary to being encountered wandering on the street by EMS endorsing suicidal ideation with no plan or intent. Plan: CV 15 minute safety checks Referral to substance abuse program? referral to outpatient providers Start: Seroquel 25mg PO daily Seroquel 100mg PO bedtime levonorgestrel 1.5mg PO once Labs: HIV, RPR, BV panel, CTNG urine. 04/14: Patient reports feeling anxious today. Patient stated, I'm doing okay. The voices piss me off sometimes . Pt reports some voices today. Denies SI/HI/VH at this time. Pt is requesting increase in Seroquel. Seroquel increased to 25mg PO 0900,1500. 04/15: Patient reports feeling anxious and irritated Pt stated, I'm just waiting to leave here . She reports having auditory hallucinations. Start: gabapentin 100mg PO TID and risperidal 1mg PO BID Patient educated on: diagnosis, medication risk/benefits and therapeutic strategies Informed Consent: understands Reason for continued inpatient stay Substantial Risk for: med/psych decompensation Time Spent With Patient Time: Total time managing care of this patient today _30___ minutes.
[2023-04-15] MEDS: QUEtiapine Fumarate 25 MG TABLET PO ×2 (10:51→14:06)
[2023-04-15] MEDS: Doxycycline Monohydrate 100 MG CAPSULE PO ×2 (10:51→20:31)
[2023-04-15] MEDS: risperiDONE 1 MG TABLET PO ×2 (15:55→20:31)
[2023-04-15] MEDS: Gabapentin 100 MG CAPSULE PO ×2 (15:55→20:31)
[2023-04-15 20:30] VITALS: BP 125/70; PULSE 105; RESP 18; TEMP 36.9; O2SAT 100
[2023-04-15] MEDS: QUEtiapine Fumarate 100 MG TABLET PO (20:31)
[2023-04-16] MEDS: traZODone HCL 50 MG TABLET PO ×2 (00:17→22:22)
[2023-04-16] MEDS: hydrOXYzine HCL 25 MG TABLET PO (00:17)
[2023-04-16] MEDS: Gabapentin 100 MG CAPSULE PO ×3 (09:14→22:22)
[2023-04-16] MEDS: risperiDONE 1 MG TABLET PO ×2 (09:15→22:22)
[2023-04-16] MEDS: QUEtiapine Fumarate 25 MG TABLET PO ×2 (09:15→15:49)
[2023-04-16] MEDS: Doxycycline Monohydrate 100 MG CAPSULE PO ×2 (09:15→22:21)
[2023-04-16 09:20] VITALS: BP 130/79; PULSE 107; RESP 20; TEMP 36.6; O2SAT 98
--- NOTE | 2023-04-16 12:26 | PC.NURSE ---
Pt refused completing the BV/CTNG swabbing. Pt stated, I did that yesterday and I ain't doing it again. Pt raising voice and swearing with agitation.
--- NOTE | 2023-04-16 13:46 | HO.PSYCHPN ---
Subjective Subjective Date of Service: 04/16/23 Reason For Visit: bipolar irene Subjective Notes: Conditional Voluntary Interim History: The nursing staff reported the patient had been fully compliant with treatment pleasant, cooperative. She is on antibiotics due to cellulitis. She reported to the staff sporadic auditory hallucinations and irritability at times. She has refused her swab test. On interview the patient denies new symptoms. Mental Status Exam Mental Status Exam Patient Appearance: Well Grooomed and Appropriate Patient Orientation: Person and Situation Level of Consciousness: Awake and Appropriate Patient Behavior: Guarded and Passive Mood Description: Calm Affect Description: Constricted Patient Cognition Impaired: Yes Ability to Follow Directions: Good Speech Pattern: Clear Hallucinations: None Delusions: Not Present Thought Process: Distracted and Slowed Thinking Thought Content: positive for Circumstantial Judgement: Fair Diagnostics Vital Signs (24Hr): Vital Signs - 24 hr 04/15/23 20:30 04/16/23 09:20 Temperature 98.5 F 97.9 F Pulse Rate 105 H 107 H Respiratory Rate 18 20 Blood Pressure 125/70 130/79 Pulse Oximetry 100 98 Oxygen Delivery Method Room Air Room Air BMI result Body Mass Index 26.9 Labs 04/12/23 06:37 04/13/23 08:28 Medications Medications Current Medications Acetaminophen (Acetaminophen 325 Mg Tablet) 650 mg PO Q6H PRN PRN Reason: Headache/Pain Mild Scale (1-3) Last Admin: 04/15/23 06:49 Dose: 650 mg Al Hydroxide/Mg Hydroxide (Magnesium Hydrox/Alum Hydrox 30 Ml Oral.Susp) 30 ml PO Q6H PRN PRN Reason: Heartburn/Nausea Benzocaine (Throat Lozenge, Medicated Lozenge) 1 lozenge MUCOUS MEM Q2H PRN PRN Reason: Sore Throat Last Admin: 04/14/23 13:36 Dose: 1 lozenge Doxycycline Monohydrate (Doxycycline Monohydrate 100 Mg Capsule) 100 mg PO Q12H [facility] Stop: 04/19/23 08:59 Last Admin: 04/16/23 09:15 Dose: 100 mg Gabapentin (Gabapentin 100 Mg Capsule) 100 mg PO TID [facility] Last Admin: 04/16/23 09:14 Dose: 100 mg Hydroxyzine HCl (Hydroxyzine Hcl 25 Mg Tablet) 25 mg PO Q6H PRN PRN Reason: Anxiety Last Admin: 04/16/23 00:17 Dose: 25 mg Magnesium Hydroxide (Milk Of Magnesia 30 Ml Oral.Susp) 30 ml PO DAILY PRN PRN Reason: Constipation Nicotine (Nicotine 21 Mg Patch.Td24) 21 mg TRANSDERMA DAILY [facility] Last Admin: 04/16/23 09:14 Dose: Not Given Quetiapine Fumarate (Quetiapine Fumarate 100 Mg Tablet) 100 mg PO BEDTIME [facility] Last Admin: 04/15/23 20:31 Dose: 100 mg Quetiapine Fumarate (Quetiapine Fumarate 25 Mg Tablet) 25 mg PO BID@0900,1500 [facility] Last Admin: 04/16/23 09:15 Dose: 25 mg Risperidone (Risperidone 1 Mg Tablet) 1 mg PO BID [facility] Last Admin: 04/16/23 09:15 Dose: 1 mg Trazodone HCl (Trazodone Hcl 50 Mg Tablet) 50 mg PO BEDTIME MRX1 PRN PRN Reason: Insomnia Last Admin: 04/16/23 00:17 Dose: 50 mg Allergies Allergies Allergy/AdvReac Type Severity Reaction Status Date / Time No Known Allergies Allergy Verified 03/08/23 13:05 [No Known Allergies*] Assessment & Plan Assessment & Plan (1) Schizoaffective disorder: Status: Acute Code(s): F25.9 - Schizoaffective disorder, unspecified (2) Cocaine abuse: Status: Acute Code(s): F14.10 - Cocaine abuse, uncomplicated Plan Patient is a 28 year old female with hx of Bipolar d/o, PTSD and cocaine use who presented to [facility] via ambulance secondary to being encountered wandering on the street by EMS endorsing suicidal ideation with no plan or intent. Plan: CV 15 minute safety checks Referral to substance abuse program? referral to outpatient providers Start: Seroquel 25mg PO daily Seroquel 100mg PO bedtime levonorgestrel 1.5mg PO once Labs: HIV, RPR, BV panel, CTNG urine. 04/14: Patient reports feeling anxious today. Patient stated, I'm doing okay. The voices piss me off sometimes . Pt reports some voices today. Denies SI/HI/VH at this time. Pt is requesting increase in Seroquel. Seroquel increased to 25mg PO 0900,1500. 04/15: Patient reports feeling anxious and irritated Pt stated, I'm just waiting to leave here . She reports having auditory hallucinations. Start: gabapentin 100mg PO TID and risperidal 1mg PO BID 04/16 continue same treatment Reason for continued inpatient stay Substantial Risk for: inability to function, rapid decompensation and med/psych decompensation Time Spent With Patient Time: Total time managing care of this patient today __20__ minutes.
--- NOTE | 2023-04-16 15:00 | PC.NURSE ---
Pt became agitated and said I need to get into the sober home in [place], I need to leave today or I'll lose my bed. RN explained that pt wouldn't be able to be discharged on the weekend but will send an email to [facility]/ to follow up with on Tuesday. Pt refused and said no just forget it, I'm an adult and you guys are treating me like a child, I'm just going to leave now, you can't keep me here. RN tried to explain that we could reach out to the sober home to see if they'll keep her bed but she refused. RN reached out to MD who was made aware that pt was threatening to leave the unit, pt placed on 5 minute checks for safety.
[2023-04-16] MEDS: Acetaminophen 325 MG TABLET 650 MG PO (15:49)
[2023-04-16] MEDS: Nicotine Polacrilex 2 MG GUM BUCCAL (18:31)
[2023-04-16 20:05] VITALS: BP 152/88; PULSE 97; RESP 16; TEMP 36.3; O2SAT 100
[2023-04-16] MEDS: QUEtiapine Fumarate 100 MG TABLET PO (22:22)
[2023-04-17 09:01] VITALS: BP 120/58; PULSE 97; RESP 20; TEMP 36.6; O2SAT 98
[2023-04-17] MEDS: QUEtiapine Fumarate 25 MG TABLET PO ×2 (09:23→15:47)
[2023-04-17] MEDS: Doxycycline Monohydrate 100 MG CAPSULE PO ×2 (09:23→20:06)
[2023-04-17] MEDS: Gabapentin 100 MG CAPSULE PO (09:23)
[2023-04-17] MEDS: risperiDONE 1 MG TABLET PO ×3 (09:23→20:06)
[2023-04-17 10:52] LABS: CT PCR NOT DETECTED (Not Detect.); NG PCR NOT DETECTED (Not Detect.)
--- NOTE | 2023-04-17 13:09 | HO.PSYCHPN ---
Subjective Subjective Date of Service: 04/17/23 Reason For Visit: bipolar irene Subjective Notes: Conditional Voluntary Interim History: The nursing staff reported the patient refused her so up testing. Yesterday she was put on 5 minutes checks because she wanted to leave and she was agitated but in an back to 50 minute checks because she is much better now. She had been talking with her peers medication compliant. The staff reported that she has complained of chronic auditory hallucinations. On interview the patient reported that she has feeling okay but requested an increase of her Risperdal to take her her voices and increase of gabapentin. She also requested benzodiazepines we discussed at length risks, benefits, side-effects and alternatives and she agreed to increase Risperdal and gabapentin. Mental Status Exam Mental Status Exam Patient Appearance: Well Grooomed Patient Orientation: Person and Situation Level of Consciousness: Awake and Appropriate Patient Behavior: Guarded and Passive Mood Description: Calm Affect Description: Constricted Patient Cognition Impaired: Yes Ability to Follow Directions: Good Speech Pattern: Clear Hallucinations: None Delusions: Paranoid Ideation Thought Process: Illogical and Evasive Thought Content: positive for Circumstantial Judgement: Fair Diagnostics Vital Signs (24Hr): Vital Signs - 24 hr 04/16/23 20:05 04/17/23 09:01 Temperature 97.3 F 97.9 F Pulse Rate 97 97 Respiratory Rate 16 20 Blood Pressure 152/88 H 120/58 L Pulse Oximetry 100 98 Oxygen Delivery Method Room Air Room Air BMI result Body Mass Index 26.9 Labs 04/12/23 06:37 04/13/23 08:28 Labs: Laboratory Results - last 48 hr 04/15/23 04/16/23 16:10 18:29 Adia species DNA Cancelled Chlam trachomat DNA PCR NOT DETECTED Gardnerella DNA Probe Cancelled N.gonorrhoeae DNA (PCR) NOT DETECTED Trichomonas DNA Probe Cancelled Medications Medications Current Medications Acetaminophen (Acetaminophen 325 Mg Tablet) 650 mg PO Q6H PRN PRN Reason: Headache/Pain Mild Scale (1-3) Last Admin: 04/16/23 15:49 Dose: 650 mg Al Hydroxide/Mg Hydroxide (Magnesium Hydrox/Alum Hydrox 30 Ml Oral.Susp) 30 ml PO Q6H PRN PRN Reason: Heartburn/Nausea Benzocaine (Throat Lozenge, Medicated Lozenge) 1 lozenge MUCOUS MEM Q2H PRN PRN Reason: Sore Throat Last Admin: 04/14/23 13:36 Dose: 1 lozenge Doxycycline Monohydrate (Doxycycline Monohydrate 100 Mg Capsule) 100 mg PO Q12H [facility] Stop: 04/19/23 08:59 Last Admin: 04/17/23 09:23 Dose: 100 mg Gabapentin (Gabapentin 100 Mg Capsule) 100 mg PO TID [facility] Last Admin: 04/17/23 09:23 Dose: 100 mg Hydroxyzine HCl (Hydroxyzine Hcl 25 Mg Tablet) 25 mg PO Q6H PRN PRN Reason: Anxiety Last Admin: 04/16/23 00:17 Dose: 25 mg Magnesium Hydroxide (Milk Of Magnesia 30 Ml Oral.Susp) 30 ml PO DAILY PRN PRN Reason: Constipation Nicotine (Nicotine 21 Mg Patch.Td24) 21 mg TRANSDERMA DAILY [facility] Last Admin: 04/17/23 11:34 Dose: Not Given Nicotine Polacrilex (Nicotine Polacrilex 2 Mg Gum) 2 mg BUCCAL Q2H PRN PRN Reason: CRAVINGS Stop: 04/30/23 08:00 Last Admin: 04/16/23 18:31 Dose: 2 mg Quetiapine Fumarate (Quetiapine Fumarate 100 Mg Tablet) 100 mg PO BEDTIME [facility] Last Admin: 04/16/23 22:22 Dose: 100 mg Quetiapine Fumarate (Quetiapine Fumarate 25 Mg Tablet) 25 mg PO BID@0900,1500 [facility] Last Admin: 04/17/23 09:23 Dose: 25 mg Risperidone (Risperidone 1 Mg Tablet) 1 mg PO BID [facility] Last Admin: 04/17/23 09:23 Dose: 1 mg Trazodone HCl (Trazodone Hcl 50 Mg Tablet) 50 mg PO BEDTIME MRX1 PRN PRN Reason: Insomnia Last Admin: 04/16/23 22:22 Dose: 50 mg Allergies Allergies Allergy/AdvReac Type Severity Reaction Status Date / Time No Known Allergies Allergy Verified 03/08/23 13:05 [No Known Allergies*] Assessment & Plan Assessment & Plan (1) Schizoaffective disorder: Status: Acute Code(s): F25.9 - Schizoaffective disorder, unspecified (2) Cocaine abuse: Status: Acute Code(s): F14.10 - Cocaine abuse, uncomplicated Plan Patient is a 28 year old female with hx of Bipolar d/o, PTSD and cocaine use who presented to [facility] via ambulance secondary to being encountered wandering on the street by EMS endorsing suicidal ideation with no plan or intent. Plan: CV 15 minute safety checks Referral to substance abuse program? referral to outpatient providers Start: Seroquel 25mg PO daily Seroquel 100mg PO bedtime levonorgestrel 1.5mg PO once Labs: HIV, RPR, BV panel, CTNG urine. 04/14: Patient reports feeling anxious today. Patient stated, I'm doing okay. The voices piss me off sometimes . Pt reports some voices today. Denies SI/HI/VH at this time. Pt is requesting increase in Seroquel. Seroquel increased to 25mg PO 0900,1500. 04/15: Patient reports feeling anxious and irritated Pt stated, I'm just waiting to leave here . She reports having auditory hallucinations. Start: gabapentin 100mg PO TID and risperidal 1mg PO BID 04/16 continue same treatment. 04/17 increase Risperdal up to 1 mg po TID, and Gabapentin 200 mg po TID. Reason for continued inpatient stay Substantial Risk for: inability to function, rapid decompensation and med/psych decompensation Time Spent With Patient Time: Total time managing care of this patient today ____ minutes.
[2023-04-17] MEDS: Gabapentin 100 MG CAPSULE 200 MG PO ×2 (15:47→20:06)
[2023-04-17] MEDS: hydrOXYzine HCL 25 MG TABLET PO (20:06)
[2023-04-17] MEDS: QUEtiapine Fumarate 100 MG TABLET PO (20:06)
[2023-04-17 20:08] VITALS: BP 129/75; PULSE 112; RESP 18; TEMP 36.6; O2SAT 98
[2023-04-18] MEDS: traZODone HCL 50 MG TABLET PO ×2 (00:09→21:46)
[2023-04-18 08:19] VITALS: BP 122/57; PULSE 96; RESP 16; TEMP 36.8; O2SAT 98
[2023-04-18] MEDS: Gabapentin 100 MG CAPSULE 200 MG PO ×3 (08:46→21:47)
[2023-04-18] MEDS: risperiDONE 1 MG TABLET PO ×3 (08:47→21:46)
[2023-04-18] MEDS: QUEtiapine Fumarate 25 MG TABLET PO ×2 (08:47→16:09)
[2023-04-18] MEDS: Doxycycline Monohydrate 100 MG CAPSULE PO ×2 (08:47→21:46)
[2023-04-18 09:51] LABS: BV Int Neg Control Negative (Negative); BV Int Pos Control Positive (Positive)
--- NOTE | 2023-04-18 09:53 | HO.PSYCHPN ---
Subjective Subjective Date of Service: 04/18/23 Reason For Visit: bipolar irene Subjective Notes: Conditional Voluntary Interim History: Reviewed in team and . Patient reports she is feeling better today; she reports some anxiety about going to the program . Pt stated, my boyfriend and I got back together again. I don't know if I can go back there. We are working on it . Pt denies SI/HI/VH/AH. Plan to discharge tomorrow to [facility]. Medication Compliance: Yes Side effects from medications: No Attending Groups: Intermittent Review of Systems Constitutional: Reports as per HPI Eyes: Reports as per HPI Reports as per HPI Cardiovascular: Reports as per HPI Respiratory: Reports as per HPI Gastrointestinal: Reports as per HPI Genitourinary: Reports as per HPI Musculoskeletal: Reports as per HPI Skin/Breast: Reports as per HPI Reports as per HPI Psychiatric: Reports as per HPI Endocrine: Reports as per HPI Hematologic/Lymphatic: Reports as per HPI Allergic/Immunologic: Reports as per HPI Mental Status Exam Mental Status Exam Narrative: Pt is alert and oriented; behavior is cooperative and calm; dressed in casual attire; mood is described as anxious ; eye contact appropriate; Speech is normal rate, volume and prosody and not pressured; no psychomotor agitation/retardation present; thought process is organized and goal directed; Thought content is on tx; otherwise pertinent to relevant topics and without any delusional content, paranoid ideations or grandiosity; denies SI/HI. There is no evidence of perceptual disturbance. Patients insight and judgment are fair. Diagnostics Vital Signs (24Hr): Vital Signs - 24 hr 04/17/23 20:08 04/18/23 08:19 Temperature 97.9 F 98.2 F Pulse Rate 112 H 96 Respiratory Rate 18 16 Blood Pressure 129/75 122/57 L Pulse Oximetry 98 98 Oxygen Delivery Method Room Air Room Air BMI result Body Mass Index 26.9 Labs 04/12/23 06:37 04/13/23 08:28 Labs: Laboratory Results - last 48 hr 04/15/23 04/16/23 16:10 18:29 Adia species DNA Cancelled Negative Chlam trachomat DNA PCR NOT DETECTED Gardnerella DNA Probe Cancelled Negative N.gonorrhoeae DNA (PCR) NOT DETECTED Trichomonas DNA Probe Cancelled Negative Medications Medications Current Medications Acetaminophen (Acetaminophen 325 Mg Tablet) 650 mg PO Q6H PRN PRN Reason: Headache/Pain Mild Scale (1-3) Last Admin: 04/16/23 15:49 Dose: 650 mg Al Hydroxide/Mg Hydroxide (Magnesium Hydrox/Alum Hydrox 30 Ml Oral.Susp) 30 ml PO Q6H PRN PRN Reason: Heartburn/Nausea Benzocaine (Throat Lozenge, Medicated Lozenge) 1 lozenge MUCOUS MEM Q2H PRN PRN Reason: Sore Throat Last Admin: 04/14/23 13:36 Dose: 1 lozenge Doxycycline Monohydrate (Doxycycline Monohydrate 100 Mg Capsule) 100 mg PO Q12H [facility] Stop: 04/19/23 08:59 Last Admin: 04/18/23 08:47 Dose: 100 mg Gabapentin (Gabapentin 100 Mg Capsule) 200 mg PO TID [facility] Last Admin: 04/18/23 08:46 Dose: 200 mg Hydroxyzine HCl (Hydroxyzine Hcl 25 Mg Tablet) 25 mg PO Q6H PRN PRN Reason: Anxiety Last Admin: 04/17/23 20:06 Dose: 25 mg Magnesium Hydroxide (Milk Of Magnesia 30 Ml Oral.Susp) 30 ml PO DAILY PRN PRN Reason: Constipation Nicotine (Nicotine 21 Mg Patch.Td24) 21 mg TRANSDERMA DAILY [facility] Last Admin: 04/18/23 08:48 Dose: Not Given Nicotine Polacrilex (Nicotine Polacrilex 2 Mg Gum) 2 mg BUCCAL Q2H PRN PRN Reason: CRAVINGS Stop: 04/30/23 08:00 Last Admin: 04/16/23 18:31 Dose: 2 mg Quetiapine Fumarate (Quetiapine Fumarate 100 Mg Tablet) 100 mg PO BEDTIME [facility] Last Admin: 04/17/23 20:06 Dose: 100 mg Quetiapine Fumarate (Quetiapine Fumarate 25 Mg Tablet) 25 mg PO BID@0900,1500 [facility] Last Admin: 04/18/23 08:47 Dose: 25 mg Risperidone (Risperidone 1 Mg Tablet) 1 mg PO TID [facility] Last Admin: 04/18/23 08:47 Dose: 1 mg Trazodone HCl (Trazodone Hcl 50 Mg Tablet) 50 mg PO BEDTIME MRX1 PRN PRN Reason: Insomnia Last Admin: 04/18/23 00:09 Dose: 50 mg Allergies Allergies Allergy/AdvReac Type Severity Reaction Status Date / Time No Known Allergies Allergy Verified 03/08/23 13:05 [No Known Allergies*] Assessment & Plan Assessment & Plan (1) Schizoaffective disorder: Status: Acute Code(s): F25.9 - Schizoaffective disorder, unspecified (2) Cocaine abuse: Status: Acute Code(s): F14.10 - Cocaine abuse, uncomplicated Plan Patient is a 28 year old female with hx of Bipolar d/o, PTSD and cocaine use who presented to [facility] via ambulance secondary to being encountered wandering on the street by EMS endorsing suicidal ideation with no plan or intent. Plan: CV 15 minute safety checks Referral to substance abuse program? referral to outpatient providers Start: Seroquel 25mg PO daily Seroquel 100mg PO bedtime levonorgestrel 1.5mg PO once Labs: HIV, RPR, BV panel, CTNG urine. 04/14: Patient reports feeling anxious today. Patient stated, I'm doing okay. The voices piss me off sometimes . Pt reports some voices today. Denies SI/HI/VH at this time. Pt is requesting increase in Seroquel. Seroquel increased to 25mg PO 0900,1500. 04/15: Patient reports feeling anxious and irritated Pt stated, I'm just waiting to leave here . She reports having auditory hallucinations. Start: gabapentin 100mg PO TID and risperidal 1mg PO BID 04/16: continue same treatment. 04/17: increase Risperdal up to 1 mg po TID, and Gabapentin 200 mg po TID. 04/18: Patient reports she is feeling better today; she reports some anxiety about going to the program . Pt stated, my boyfriend and I got back together again. I don't know if I can go back there. We are working on it . Pt denies SI/HI/VH/AH. Plan to discharge tomorrow to [facility]. Patient educated on: diagnosis, medication risk/benefits, substance abuse and therapeutic strategies Informed Consent: understands Reason for continued inpatient stay Substantial Risk for: stable for discharge Time Spent With Patient Time: Total time managing care of this patient today _30___ minutes.
[2023-04-18 18:15] LABS: UPreg QC Valid YES; Urine Pregnancy NEGATIVE (NEGATIVE)
[2023-04-18] MEDS: hydrOXYzine HCL 25 MG TABLET PO (19:14)
[2023-04-18 19:16] VITALS: BP 125/64; PULSE 101; RESP 16; TEMP 36.3; O2SAT 98
[2023-04-18] MEDS: Nicotine Polacrilex 2 MG GUM BUCCAL (21:07)
[2023-04-18] MEDS: QUEtiapine Fumarate 100 MG TABLET PO (21:46)
[2023-04-19 06:00] VITALS: BP 108/58; PULSE 86; TEMP 36.8; O2SAT 97
[2023-04-19] MEDS: Gabapentin 100 MG CAPSULE 200 MG PO (08:49)
[2023-04-19] MEDS: risperiDONE 1 MG TABLET PO (08:49)
[2023-04-19] MEDS: QUEtiapine Fumarate 25 MG TABLET PO (08:49)
--- NOTE | 2023-04-19 09:11 | HO.PSYCHPN ---
Subjective Subjective Reason For Visit: bipolar sistorder Diagnostics Vital Signs (24Hr): Vital Signs - 24 hr 04/18/23 19:16 04/19/23 06:00 Temperature 97.4 F 98.2 F Pulse Rate 101 H 86 Respiratory Rate 16 Blood Pressure 125/64 108/58 L Pulse Oximetry 98 97 Oxygen Delivery Method Room Air Room Air BMI result Body Mass Index 26.9 Labs 04/12/23 06:37 04/13/23 08:28 Labs: Laboratory Results - last 48 hr 04/16/23 04/18/23 18:29 17:28 Urine Test NEGATIVE Adia species DNA Negative Chlam trachomat DNA PCR NOT DETECTED Gardnerella DNA Probe Negative N.gonorrhoeae DNA (PCR) NOT DETECTED Trichomonas DNA Probe Negative Medications Medications Current Medications Acetaminophen (Acetaminophen 325 Mg Tablet) 650 mg PO Q6H PRN PRN Reason: Headache/Pain Mild Scale (1-3) Last Admin: 04/16/23 15:49 Dose: 650 mg Al Hydroxide/Mg Hydroxide (Magnesium Hydrox/Alum Hydrox 30 Ml Oral.Susp) 30 ml PO Q6H PRN PRN Reason: Heartburn/Nausea Benzocaine (Throat Lozenge, Medicated Lozenge) 1 lozenge MUCOUS MEM Q2H PRN PRN Reason: Sore Throat Last Admin: 04/14/23 13:36 Dose: 1 lozenge Gabapentin (Gabapentin 100 Mg Capsule) 200 mg PO TID [facility] Last Admin: 04/19/23 08:49 Dose: 200 mg Hydroxyzine HCl (Hydroxyzine Hcl 25 Mg Tablet) 25 mg PO Q6H PRN PRN Reason: Anxiety Last Admin: 04/18/23 19:14 Dose: 25 mg Magnesium Hydroxide (Milk Of Magnesia 30 Ml Oral.Susp) 30 ml PO DAILY PRN PRN Reason: Constipation Nicotine (Nicotine 21 Mg Patch.Td24) 21 mg TRANSDERMA DAILY [facility] Last Admin: 04/19/23 08:50 Dose: Not Given Nicotine Polacrilex (Nicotine Polacrilex 2 Mg Gum) 2 mg BUCCAL Q2H PRN PRN Reason: CRAVINGS Stop: 04/30/23 08:00 Last Admin: 04/18/23 21:07 Dose: 2 mg Quetiapine Fumarate (Quetiapine Fumarate 100 Mg Tablet) 100 mg PO BEDTIME [facility] Last Admin: 04/18/23 21:46 Dose: 100 mg Quetiapine Fumarate (Quetiapine Fumarate 25 Mg Tablet) 25 mg PO BID@0900,1500 [facility] Last Admin: 04/19/23 08:49 Dose: 25 mg Risperidone (Risperidone 1 Mg Tablet) 1 mg PO TID [facility] Last Admin: 04/19/23 08:49 Dose: 1 mg Trazodone HCl (Trazodone Hcl 50 Mg Tablet) 50 mg PO BEDTIME MRX1 PRN PRN Reason: Insomnia Last Admin: 04/18/23 21:46 Dose: 50 mg Allergies Allergies Allergy/AdvReac Type Severity Reaction Status Date / Time No Known Allergies Allergy Verified 03/08/23 13:05 [No Known Allergies*] Assessment & Plan Assessment & Plan (1) Schizoaffective disorder: Status: Acute Code(s): F25.9 - Schizoaffective disorder, unspecified (2) Cocaine abuse: Status: Acute Code(s): F14.10 - Cocaine abuse, uncomplicated Plan Patient is a 28 year old female with hx of Bipolar d/o, PTSD and cocaine use who presented [place] [facility] via [place] secondary to being encountered wandering on the street by EMS endorsing suicidal ideation with no plan or intent. Plan: CV 15 minute safety checks Referral to substance abuse program? referral to outpatient providers Start: Seroquel 25mg PO daily Seroquel 100mg PO bedtime levonorgestrel 1.5mg PO once Labs: HIV, RPR, BV panel, CTNG urine. 04/14: Patient reports feeling anxious today. Patient stated, I'm doing okay. The voices piss me off sometimes . Pt reports some voices today. Denies SI/HI/VH at this time. Pt is requesting increase in Seroquel. Seroquel increased to 25mg PO 0900,1500. 04/15: Patient reports feeling anxious and irritated Pt stated, I'm just waiting to leave here . She reports having auditory hallucinations. Start: gabapentin 100mg PO TID and risperidal 1mg PO BID 04/16: continue same treatment. 04/17: increase Risperdal up to 1 mg po TID, and Gabapentin 200 mg po TID. 04/18: Patient reports she is feeling better today; she reports some anxiety about going to the program . Pt stated, my boyfriend and I got back together again. I don't know if I can go back there. We are working on it . Pt denies SI/HI/VH/AH. Plan to discharge tomorrow to [facility]. Time Spent With Patient Time: Total time managing care of this patient today ____ minutes.
--- NOTE | 2023-04-19 09:25 | PM.PSYDC ---
DS: Providers Provider Date of Service: 04/19/23 Date of admission: 04/12/23 18:40 Date of discharge: 04/19/23 Primary care physician: Unknown Physician Admitting clinician: Gloria Cox Attending physician on admission: Gatito Whitlock Consults: 04/13/23 14:56 Consult to Hospitalist Routine Comment: Consulting Provider: Hospitalist Reason For Exam: cellulitis r ft, r 2nd finger, rhett & breast rash Attending physician on discharge: Gatito Whitlock Discharging clinician: Gloria Cox DS: Diagnosis Discharge Diagnosis (1) Schizoaffective disorder: Status: Acute (2) Cocaine abuse: Status: Acute DS: Medications Discharge Medications Home Medications: Previous Rx's Medication Instructions Recorded dolutegravir 10 mg tablet (Tivicay) 50 mg (5 x 10 mg) PO DAILY 30 days 03/29/22 #150 tabs emtricitabine 200 mg-tenofovir 1 tab PO DAILY 30 days #30 tabs 04/23/22 disoproxil fumarate 300 mg tablet (Truvada) Ventolin HFA 90 mcg/actuation 2 puff inhalation Q6H PRN 11/16/22 aerosol inhaler (albuterol sulfate) shortness of breath or wheezing 30 days #8 grams gabapentin 100 mg capsule 200 mg (2 x 100 mg) PO TID 30 days 04/18/23 #180 caps hydroxyzine HCl 25 mg tablet 25 mg PO TID PRN Anxiety 30 days 04/18/23 #90 tabs quetiapine 100 mg tablet 100 mg PO BEDTIME 30 days #30 tabs 04/18/23 quetiapine 25 mg tablet 25 mg PO BID@0900,1500 30 days #60 04/18/23 tabs risperidone 1 mg tablet 1 mg PO TID 30 days #90 tabs 04/18/23 Mental Status Exam Mental Status Exam Narrative: Pt is alert and oriented; behavior is cooperative and calm; dressed in casual attire; mood is described as good ; eye contact appropriate; Speech is normal rate, volume and prosody and not pressured; no psychomotor agitation/retardation present; thought process is organized and goal directed; Thought content is on tx; otherwise pertinent to relevant topics and without any delusional content, paranoid ideations or grandiosity; denies SI/HI. There is no evidence of perceptual disturbance. Patients insight and judgment are fair. Data Data Completed and Pending Completed studies during hospitalization [Text1]: 04/12/23 04/12/23 04/12/23 10:20 12:20 17:27 Sodium 140 Potassium 3.6 Chloride 112 H Carbon Dioxide 20 L Anion Gap 12 BUN 11 Creatinine 0.62 Estim Creat Clear Calc 125.8 Estimated GFR > 60 Random Glucose 97 Fasting Glucose Estimat Average Glucose Hemoglobin A1c % Calcium 8.1 L D Magnesium Total Bilirubin AST ALT Alkaline Phosphatase Total Creatine Kinase 1145 H 889 H Total Protein Albumin Triglycerides Cholesterol LDL Cholesterol, Calc HDL Cholesterol Vitamin B12 Folate TSH Free T4 Urine Color Yellow Urine Appearance Clear Urine pH 6.0 Ur Specific Bartley 1.025 Urine Protein Trace Urine Glucose (UA) Negative Urine Ketones 80 Urine Blood Negative Urine Nitrite Negative Ur Leukocyte Esterase Negative Urine RBC 0-2 Urine WBC 0-5 Ur Squamous Epith Cells 6-10 Urine Bacteria Trace Hyaline Casts 0-2 Urine Test Urine Opiates Screen Not Detected Urine Fentanyl Screen POSITIVE H Ur Barbiturates Screen Not Detected Ur Phencyclidine Scrn Not Detected Ur Amphetamines Screen Not Detected U Benzodiazepines Scrn Not Detected Urine Cocaine Screen POSITIVE H U Marijuana (THC) Screen Not Detected T.pallidum Ab (EIA) Adia species DNA Chlam trachomat DNA PCR Gardnerella DNA Probe HIV 1&2 Ab/P24 Ag 4thGn N.gonorrhoeae DNA (PCR) Trichomonas DNA Probe 04/13/23 04/13/23 04/15/23 08:28 17:16 16:10 Sodium 141 Potassium 4.0 Chloride 111 H Carbon Dioxide 21 L Anion Gap 13 BUN 5 L Creatinine 0.60 Estim Creat Clear Calc 130.0 Estimated GFR > 60 Random Glucose 96 Fasting Glucose 97 Estimat Average Glucose 82 Hemoglobin A1c % 4.5 Calcium 9.0 D Magnesium 2.0 Total Bilirubin 0.2 AST 31 ALT 32 H Alkaline Phosphatase 69 Total Creatine Kinase 582 H Total Protein 7.3 Albumin 3.9 Triglycerides 79 Cholesterol 134 LDL Cholesterol, Calc 72 HDL Cholesterol 47 Vitamin B12 568 Folate 10.2 TSH 2.03 Free T4 1.02 Urine Color Urine Appearance Urine pH Ur Specific Bartley Urine Protein Urine Glucose (UA) Urine Ketones Urine Blood Urine Nitrite Ur Leukocyte Esterase Urine RBC Urine WBC Ur Squamous Epith Cells Urine Bacteria Hyaline Casts Urine Test Urine Opiates Screen Urine Fentanyl Screen Ur Barbiturates Screen Ur Phencyclidine Scrn Ur Amphetamines Screen U Benzodiazepines Scrn Urine Cocaine Screen U Marijuana (THC) Screen T.pallidum Ab (EIA) Nonreactive Adia species DNA Cancelled Chlam trachomat DNA PCR Gardnerella DNA Probe Cancelled HIV 1&2 Ab/P24 Ag 4thGn Nonreactive N.gonorrhoeae DNA (PCR) Trichomonas DNA Probe Cancelled 04/16/23 04/18/23 18:29 17:28 Sodium Potassium Chloride Carbon Dioxide Anion Gap BUN Creatinine Estim Creat Clear Calc Estimated GFR Random Glucose Fasting Glucose Estimat Average Glucose Hemoglobin A1c % Calcium Magnesium Total Bilirubin AST ALT Alkaline Phosphatase Total Creatine Kinase Total Protein Albumin Triglycerides Cholesterol LDL Cholesterol, Calc HDL Cholesterol Vitamin B12 Folate TSH Free T4 Urine Color Urine Appearance Urine pH Ur Specific Bartley Urine Protein Urine Glucose (UA) Urine Ketones Urine Blood Urine Nitrite Ur Leukocyte Esterase Urine RBC Urine WBC Ur Squamous Epith Cells Urine Bacteria Hyaline Casts Urine Test NEGATIVE Urine Opiates Screen Urine Fentanyl Screen Ur Barbiturates Screen Ur Phencyclidine Scrn Ur Amphetamines Screen U Benzodiazepines Scrn Urine Cocaine Screen U Marijuana (THC) Screen T.pallidum Ab (EIA) Adia species DNA Negative Chlam trachomat DNA PCR NOT DETECTED Gardnerella DNA Probe Negative HIV 1&2 Ab/P24 Ag 4thGn N.gonorrhoeae DNA (PCR) NOT DETECTED Trichomonas DNA Probe Negative DS: Summary Hospital Course Hospital Course: Patient is a 28 year old female with hx of Bipolar d/o, PTSD and cocaine use who presented to [facility] via ambulance secondary to being encountered wandering on the street by EMS endorsing suicidal ideation with no plan or intent. Per crisis, on arrival pt stated she came back from [facility] and is God; reported her daughter does drugs and the child is making her body move because her daughter is no inside her body. During admission assessment, pt presents calm and cooperative. Pt does not recall making any of the statements in the crisis report, pt stated while laughing, I don't remember saying any of that; I was high on cocaine . Patient currently denies SI/HI/VH/AH. Patient reports she has been homeless for the past four days after breaking up with her ex-boyfriend. She is requesting for levonorgestrel and STD testing d/t multiple sexual partners the past few days. Pt stated, I was living with my boyfriend but we broke up then I was on the streets. I haven't smoked cocaine in eight months and started again. I want to go to a sober house and not relapse again . Patient denies any current psychiatric providers or medications; she reports hx of taking Seroquel and being beneficial in her mood; she is also requesting referrals to outpatient providers. During hospital stay, patient was started on Seroquel 25mg PO daily, Seroquel 100mg PO bedtime. Pt was given levonorgestrel 1.5mg PO once per her request. Patient reports feeling anxious today. Patient stated, I'm doing okay. The voices piss me off sometimes . Pt reports some voices today. Denies SI/HI/VH at this time. Pt is requesting increase in Seroquel. Seroquel increased to 25mg PO 0900,1500. Patient reports feeling anxious and irritated Pt stated, I'm just waiting to leave here . She reports having auditory hallucinations. Start: gabapentin 100mg PO TID and risperidal 1mg PO BID Increase Risperdal up to 1 mg po TID, and Gabapentin 200 mg po TID. Patient reports she is feeling better today; she reports some anxiety about going to the program . Pt stated, my boyfriend and I got back together again. I don't know if I can go back there. We are working on it . Pt denies SI/HI/VH/AH. Plan to discharge tomorrow to [facility] program. Patient decided she did not want to go to [facility] this morning d/t all of the rules they have there ; pt reports she plans on returning to her boyfriends house and following up with outpatient providers. denies SI/HI/VH/AH. Time spent discussing smoking cessation with patient: 3 to 10 minutes Status at Discharge Cognitive/behavioral status at discharge: Patient was interviewed prior to discharge and found to be fully oriented and without any SI or HI. Patient has insight and demonstrates good judgment in terms of wanting to pursue treatment. Patient is not in imminent risk of harm to self or others and has a safety plan that includes presenting to the closest ER or calling 911 if feeling unsafe. Patient has been observed closely by nursing and unit staff throughout admission; patient has not engaged in any behaviors that suggest dangerousness to self or others and has demonstrated appropriate behaviors and impulse control. Functional status at discharge: independent ambulation Overall status at discharge: patient is back to baseline Time Spent with Patient Time attestation: Total time managing care of this patient today _30___ minutes. Time spent: Less than 30 minutes Discharge Plan Discharge Anticipated Discharge Date/Time: 04/19/23 10:00 Patient Disposition: Home, Self-Care Discharge Diagnosis: Schizoaffective d/o, Cocaine abuse Referrals: Mayda Hummel MD [Physician] - 1 Week (PCP will contact pt with f/u appointment date and time.) Discharge Medications: New gabapentin 100 mg Capsule 200 mg PO TID 30 Days Qty: 180 1RF quetiapine 100 mg Tablet 100 mg PO BEDTIME 30 Days Qty: 30 1RF quetiapine 25 mg Tablet 25 mg PO BID@0900,1500 30 Days Qty: 60 1RF hydroxyzine HCl 25 mg Tablet 25 mg PO TID PRN (Reason: Anxiety) 30 Days Qty: 90 1RF risperidone 1 mg Tablet 1 mg PO TID 30 Days Qty: 90 1RF Continued albuterol sulfate [Ventolin HFA] 90 mcg/actuation HFA aerosol inhaler 2 puff inhalation Q6H PRN (Reason: shortness of breath or wheezing) 30 Days Qty: 8 2RF Held Tivicay 10 mg tablet 50 mg PO DAILY 30 Days Qty: 150 0RF Hold Instructions: Resume on 04/18/23. Doctor's Order emtricitabine-tenofovir (TDF) [Truvada] 200-300 mg tablet 1 tab PO DAILY 30 Days Qty: 30 0RF Hold Instructions: Resume on 04/18/23. Doctor's Order Discontinued olanzapine 10 mg tablet 10 mg PO DAILY Qty: 30 5RF trazodone 50 mg tablet 50 mg PO BEDTIME PRN (Reason: for insomnia) Qty: 30 6RF melatonin 10 mg capsule 10 mg PO BEDTIME PRN (Reason: sleep) 90 Days Qty: 90 0RF hydroxyzine pamoate [Vistaril] 50 mg capsule 50 mg PO Q8H PRN (Reason: anxiety) 90 Days Qty: 270 0RF quetiapine 50 mg tablet 50 mg PO TID 90 Days Qty: 270 0RF albuterol sulfate [Ventolin HFA] 90 mcg/actuation HFA aerosol inhaler 2 puff inhalation Q4-6H PRN (Reason: shortness of breath or wheezing) Qty: 8.5 0RF (DME) Tello Persaud [facility] Spacer inhalation DIRECTED azithromycin 250 mg tablet 250 mg PO DIRECTED albuterol sulfate 0.63 mg/3 mL solution for nebulization 0.63 mg inhalation Q4-6H PRN (Reason: shortness of breath or wheezing) Qty: 90 0RF azithromycin 250 mg tablet See Rx Instructions PO .COMPLEX Qty: 6 0RF Rx Instructions: For 250 mg dose pack: take 500 mg today (day 1), then 250 mg for 4 days (days 2-5) PO prednisone 20 mg tablet 40 mg PO DAILY Qty: 10 0RF prochlorperazine maleate 10 mg tablet 10 mg PO Q8H PRN (Reason: nausea and vomiting) 30 Days Qty: 90 6RF albuterol sulfate 90 mcg/actuation HFA aerosol inhaler 1 puff inhalation QID PRN (Reason: wheezing) 30 Days Qty: 6.7 2RF Discharge Orders: Discharge Order (Routine); Ordered 04/19/23 Ordered By: Gloria Cox Diet: Regular diet Activity on Discharge: As tolerated Stand Alone Forms: Patient Portal Discharge page, Community Support Care Plan Goals: Maintain mood and safe behaviors Take medications as prescribed Continue to pursue sobriety Practice coping skills Continue with outpatient providers and reach out to them as needed Health Concerns: Mood stability and behaviors Sobriety Plan of Treatment: Follow up with your PCP, psychiatric provider and other outpatient providers regarding above concerns Take medications as prescribed Assessment: Patient was interviewed prior to discharge and found to be fully oriented and without any SI or HI. Patient has insight and demonstrates good judgment in terms of wanting to pursue treatment. Patient is not in imminent risk of harm to self or others and has a safety plan that includes presenting to the closest ER or calling 911 if feeling unsafe. Patient has been observed closely by nursing and unit staff throughout admission; patient has not engaged in any behaviors that suggest dangerousness to self or others and has demonstrated appropriate behaviors and impulse control. Discharge Date/Time: 04/19/23 10:50
== END 2023-04-19 10:50 | disposition home or self-care (01) | DRG 750 ==
LOC: HO.ED 12:04 → HO.PADLT16 18:56
PROVIDERS: Clinical Nurse Specialist Psychiatric/Mental Health, Adult; Emergency Medicine; Student in an Organized Health Care Education/Training Program; Admitting Provider Psychiatry & Neurology Psychiatry; Emergency Provider Emergency Medicine; Responsible Provider Registered Nurse; Visit Provider Psychiatry & Neurology Psychiatry
DX: F25.9 Schizoaffective disorder, unspecified (principal); F14.10 Cocaine abuse, uncomplicated; F17.210 Nicotine dependence, cigarettes, uncomplicated; J45.40 Moderate persistent asthma, uncomplicated; Z71.6 Tobacco abuse counseling; Z23 Encounter for immunization; Z20.822 Contact with and (suspected) exposure to COVID-19; Z79.899 Other long term (current) drug therapy
CPT/HCPCS: 0353U; 36415; 80048; 80053; 80061; 80076; 80143; 80179; 80307; 81001; 81025; 82550; 82607; 82746; 83036; 83735; 84439; 84443; 84702; 85025; 86780; 87389; 87480; 87510; 87635; 87660; 90686; 93005; 99285; S9485

== ENCOUNTER → 2023-04-12 18:40 | Outpatient (BNV) | payer OTHER, SELFPAY | PROVIDERS: Admitting Provider Psychiatry & Neurology Psychiatry; Emergency Provider Emergency Medicine; Responsible Provider Registered Nurse; Visit Provider Registered Nurse | DX: F25.8 Other schizoaffective disorders (principal); F14.10 Cocaine abuse, uncomplicated | CPT/HCPCS: 90792; 99231; 99232; 99238 ==

== ENCOUNTER → 2023-04-12 18:40 | Outpatient (BNV) | payer OTHER, SELFPAY | PROVIDERS: Admitting Provider Psychiatry & Neurology Psychiatry; Emergency Provider Emergency Medicine; Responsible Provider Registered Nurse; Visit Provider Psychiatry & Neurology Psychiatry | DX: F25.0 Schizoaffective disorder, bipolar type (principal); F14.10 Cocaine abuse, uncomplicated | CPT/HCPCS: 99232 ==

== ENCOUNTER 2023-05-18 07:57 | Outpatient (AMB) | payer OTHER, SELFPAY ==
--- NOTE | 2023-05-18 07:58 | MHC.PC.OV ---
Intake Visit Reasons: sore throat, wants telephone visit Intake Note: Sore throat, Asthma telephone visit Enrollment Services Dean Required: No Accompanied by: Self / Same As Patient Allergies No Known Allergies [No Known Allergies*] Allergy (Verified 05/18/23 08:10) Medication List - Last Reconciled 05/18/23 by Mayda Rosenbaum MD gabapentin 200 mg (2 x 100 mg) PO TID 30 days hydroxyzine HCl 25 mg PO TID PRN 30 days quetiapine 100 mg PO BEDTIME 30 days quetiapine 25 mg PO BID@0900,1500 30 days risperidone 1 mg PO TID 30 days Ventolin HFA 90 mcg/actuation (albuterol sulfate) 2 puffs inhalation Q6H PRN 30 days NS Tobacco use date assessed: 03/08/23 Dental Screening Dental Screen Date: 05/18/23 Did you have a dental visit in the last 12 months?: Yes Did you have a dental problem in the last 6 months where you did not have access to dental care?: No Was dental information given to patient?: Patient has dentist HPI HPI Comments History of Present Illness Details This is a 28-year-old female with mild asthma, cocaine abuse and moderate recurrent major depression that has telehealth visit by phone complaining of sore throat, nasal congestion and productive cough that started 2-3 days ago. She tested negative for COVID-19. She also has some shortness of breath. I order chest x-ray and COVID, RSV and flu to be done at the hospital. I also start her on amoxicillin. She use rescue inhaler once to twice a month regularly. Was hospitalized recently due to acute psychosis and was positive for cocaine and fentanyl. Was advised to quit. Depression is follow by counseling. She has for Klonopin for anxiety and I decline it due to her urine toxicology positive for cocaine and fentanyl and Klonopin can cause addiction. [facility] Medical History (Updated 05/18/23 @ 08:14 by Mayda Rosenbaum MD) Acute psychosis Schizophrenia STD exposure Moderate recurrent major depression PUD (peptic ulcer disease) HSV (herpes simplex virus) infection Mild persistent asthma, uncomplicated Pneumonia Pulmonary embolism Asthma COVID-19 Sleeping difficulties Surgical History No history of previous surgery Family History Mother Hypertension Father No problems noted. Other Mental health disorder Social History Household Members: Friend(s) Housing: Apartment Do you presently have visiting nurse or other home services: No Unable to assess alcohol history related to: Unable to respond Alcohol intake: never Patient Tobacco Use Status: Current everyday Tobacco user Tobacco use type: Cigarette Cigarettes Per Day: 5 e-Cigarette/Vaping Use: Currently Using Second Hand Smoke Exposure: No Substance Use Type: Crack/Cocaine and Opiates service: No Current occupational status: unemployed Sexual orientation: Straight/Heterosexual Cognitive needs: No Hearing needs: No Vision needs: No Female Reproductive History Menstrual Age of Menarche: 11 Questionnaire Thrive Questionnaire Date Thrive assessed: 04/13/23 JOHN-7 AMB Questionnaire JOHN-7 Date JOHN - 7 assessed: 03/08/23 Source: Developed by Drs. Rufus Lema, Harleen Bonner, Girish Duggan and colleagues, with an educational shane from [employer]. Review of Systems Const All systems reviewed & are unremarkable except as noted in HPI and below Eyes Reports no additional complaints, Denies change in vision and Denies other visual disturbances ENT Reports nasal congestion and Reports sore throat Card Denies chest pain at rest, Denies chest pain with activity, Denies edema, Denies irregular heart rhythm, Denies claudication, Reports dyspnea, Reports dyspnea on exertion, Denies orthopnea, Denies paroxysmal nocturnal dyspnea and Denies slow heart rate Resp Reports chest congestion, Reports cough, Reports dyspnea and Reports dyspnea on exertion GI Denies abdominal pain, Denies change in bowel habits, Denies excessive flatus, Denies nausea and Denies vomiting Denies urinary incontinence, Denies urinary hesitancy and Denies urinary urgency Musc Denies atrophy, Denies deformity and Denies limited range of motion Skin/Breast Denies bleeding lesions, Denies changing lesions and Denies rash Psych Reports anxiety Physical exam (Primary Care) Tobacco/Smoking Status: Tobacco use Status Tobacco use date assessed 03/08/23 05/18/23 08:00 Patient Tobacco Use Status Current everyday Tobacco 05/18/23 08:00 Tobacco use type Cigarette 05/18/23 08:00 e-Cigarette/Vaping Use Currently Using 05/18/23 08:00 Thrive Assessment: Date of Thrive Assessment Date Thrive assessed 04/13/23 05/18/23 08:00 Telehealth Telehealth Location of provider rendering services: practice address Location of patient: address on file Patient Identification confirmed using: Name, : Yes Telehealth method: voice only Patient verbally consented to treatment: Yes Patient verbally consented to billing insurance company: Yes Patient informed of any privacy concerns related to visit: Yes Minutes spent on Phone/Video with Pt.: 15 Assessment and Plan Assessment & Plan (1) Upper respiratory tract infection: Code(s): J06.9 - Acute upper respiratory infection, unspecified Plan: Start amoxicillin. Chest x-ray ordered. Test for COVID, flu and RSV order. (2) Moderate recurrent major depression: Code(s): F33.1 - Major depressive disorder, recurrent, moderate Plan: Continue Risperdal. Follow-up with counseling. (3) Mild persistent asthma, uncomplicated: Code(s): J45.30 - Mild persistent asthma, uncomplicated Plan: Use rescue inhaler as needed. (4) Cocaine abuse: Code(s): F14.10 - Cocaine abuse, uncomplicated Plan: Advised to quit. Orders: Orders SARS-CoV2/FLU/RSV Today R09.89 - Other specified symptoms and signs involving the circulatory and respiratory systems XR chest 2V Today J06.9 - Acute upper respiratory infection, unspecified Medications: New amoxicillin 500 mg PO Q12H 7 days 14 tabs 0RF Coding Level of Care Code Tele Est Pt Level 4 (67346) Diagnoses Upper respiratory tract infection J06.9 Moderate recurrent major depression F33.1 Mild persistent asthma, uncomplicated J45.30 Cocaine abuse F14.10 Time Spent (min) 15
== END 2023-05-18 08:31 | disposition home or self-care (01) ==
LOC: HO.HMGH 07:57
PROVIDERS: PCP Internal Medicine; Visit Provider Internal Medicine
DX: J06.9 Acute upper respiratory infection, unspecified (principal); F33.1 Major depressive disorder, recurrent, moderate; J45.30 Mild persistent asthma, uncomplicated; F14.10 Cocaine abuse, uncomplicated
CPT/HCPCS: 99214

== ENCOUNTER 2024-01-10 14:45 | Outpatient (AMB) | payer OTHER, SELFPAY ==
[2024-01-10 14:47] VITALS: BP 140/80; PULSE 70; O2SAT 99; BMI 43.2
--- NOTE | 2024-01-10 14:47 | MHC.PC.OV ---
Vital Signs 01/10/24 14:47 Height 5 ft 2 in Weight 236 lb BMI 43.2 BP 140/80 H Blood Pressure Location Lt brachial Position Sitting Pulse 70 Pulse Source Pulse Oximeter Pulse Oximetry (%) 99 Oxygen Delivery Method Room Air Intake Visit Reasons: Bilateral ear pain x1 month Pruner: Not Required per policy Accompanied by: Self / Same As Patient Allergies No Known Allergies [No Known Allergies*] Allergy (Verified 01/10/24 14:48) Tobacco use date assessed: 01/10/24 Dental Screening Dental Screen Date: 01/10/24 Did you have a dental visit in the last 12 months?: Yes Did you have a dental problem in the last 6 months where you did not have access to dental care?: No Was dental information given to patient?: Patient has dentist HPI HPI Comments History of Present Illness Details 28 y/o female patient who presents to the clinic today with c/o bilateral ear pain x 1 month. Reports difficulty hearing on both sides. reports pressure inside both ears. Denies fevers, chills, N/V. Denies hearing loss. She does report prior TM rupture due to trauma (2 years ago). She does have h/o Allergic Rhinitis. [facility] Medical History Acute psychosis Schizophrenia STD exposure Moderate recurrent major depression PUD (peptic ulcer disease) HSV (herpes simplex virus) infection Mild persistent asthma, uncomplicated Pneumonia Pulmonary embolism Asthma COVID-19 Sleeping difficulties Surgical History No history of previous surgery Family History Mother Hypertension Father No problems noted. Other Mental health disorder Social History Household Members: Friend(s) Housing: Apartment Do you presently have visiting nurse or other home services: No Unable to assess alcohol history related to: Unable to respond Alcohol intake: never Patient Tobacco Use Status: Current everyday Tobacco user Tobacco use type: Cigarette Cigarettes Per Day: 5 e-Cigarette/Vaping Use: Currently Using Second Hand Smoke Exposure: No Substance Use Type: Crack/Cocaine and Opiates service: No Current occupational status: unemployed Sexual orientation: Straight/Heterosexual Cognitive needs: No Hearing needs: No Vision needs: No Female Reproductive History Menstrual Age of Menarche: 11 Questionnaire Thrive Questionnaire Date Thrive assessed: 04/13/23 JOHN-7 AMB Questionnaire JOHN-7 Date JOHN - 7 assessed: 03/08/23 Source: Developed by Drs. Rufus Lema, Harleen Bonner, Girish Duggan and colleagues, with an educational shane from [employer]. Review of Systems Const All systems reviewed & are unremarkable except as noted in HPI and below Physical exam (Primary Care) Vital Signs: Last Vital Signs Pulse 70 01/10/24 14:47 BP 140/80 H 01/10/24 14:47 Pulse Ox 99 01/10/24 14:47 Oxygen Delivery Method Room Air 01/10/24 14:47 BMI result Body Mass Index 43.2 Tobacco/Smoking Status: Tobacco use Status Tobacco use date assessed 01/10/24 01/10/24 14:49 Patient Tobacco Use Status Current everyday Tobacco 01/10/24 14:49 Tobacco use type Cigarette 01/10/24 14:49 e-Cigarette/Vaping Use Currently Using 01/10/24 14:49 Thrive Assessment: Date of Thrive Assessment Date Thrive assessed 04/13/23 01/10/24 14:49 Const General: comfortable and no acute distress Nutritional Appearance: obese Orientation/consciousness: patient oriented x3 HENMT Head: Yes normocephalic Ears: external ears normal and TM abnormal bulging and with fluid behind the TM bilateral; not bullous, not with effusion, not erythematous and not perforated Resp Effort & Inspection: normal respiratory effort Cardio Heart sounds: S1 normal heart sound present and S2 normal heart sound present Neuro General: patient oriented x3, gait normal and moves all extremities Psych Speech and movement: Normal speech and movement present Vital Signs: Last Vital Signs Pulse 70 01/10/24 14:47 BP 140/80 H 01/10/24 14:47 Pulse Ox 99 01/10/24 14:47 Oxygen Delivery Method Room Air 01/10/24 14:47 BMI result Body Mass Index 43.2 Const General: comfortable and no acute distress Nutritional Appearance: obese Orientation/consciousness: patient oriented x3 HEENT Head: Yes normocephalic Ears: external ears normal and TM abnormal bulging and with fluid behind the TM bilateral; not bullous, not with effusion, not erythematous and not perforated Resp Effort & Inspection: normal respiratory effort Cardio Heart sounds: S1 normal heart sound present and S2 normal heart sound present Neuro General: patient oriented x3, gait normal and moves all extremities Psych Speech and movement: Normal speech and movement present Assessment and Plan Assessment & Plan (1) Otalgia of both ears: Code(s): H92.03 - Otalgia, bilateral Plan: Ordered Zrytec BID Ordered Flonase Acetaminophen for pain relief. No Signs of infection. Medications: New cetirizine (Zyrtec) 10 mg PO DAILY PRN 90 tabs 0RF allergy symptoms H92.03 - Otalgia, bilateral acetaminophen 1,000 mg (2 x 500 mg) PO Q6H PRN 30 caps 0RF pain H92.03 - Otalgia, bilateral Refilled fluticasone propionate 50 mcg/actuation (Flonase Allergy Relief) administer into each nostril 1 spray intranasal DAILY 30 days 16 grams 1RF J30.9 - Allergic rhinitis, unspecified Discontinued prednisone Discontinued Reason: Patient Completed Course 5 mg PO DAILY 3 days 3 tabs 0RF amoxicillin Discontinued Reason: Patient Completed Course 500 mg PO Q12H 7 days 14 tabs 0RF Coding Level of Care Code Est Pt Level 3 (44940) Diagnoses Otalgia of both ears H92.03 Additional Codes PHQ-9 - 76021 - PHQ-9 Billing: ([id number]) Time Spent (min) 15
== END 2024-01-10 15:09 | disposition home or self-care (01) ==
PROVIDERS: PCP Internal Medicine; Visit Provider Nurse Practitioner Family
DX: H92.03 Otalgia, bilateral (principal)
CPT/HCPCS: 99213

== ENCOUNTER 2024-01-30 09:36 | Outpatient (AMB) | payer OTHER, SELFPAY ==
--- NOTE | 2024-01-30 09:45 | MHC.PC.OV ---
Vital Signs 01/30/24 09:48 Height 5 ft 2 in Weight 236 lb BMI 43.2 BP 110/70 Blood Pressure Location Lt brachial Position Sitting Intake Visit Reasons: Follow Up [employer] Required: No Accompanied by: Self / Same As Patient Allergies No Known Allergies [No Known Allergies*] Allergy (Verified 01/30/24 09:55) Medication List - Last Reconciled 01/30/24 by Mayad Rosenbaum MD acetaminophen 1,000 mg (2 x 500 mg) PO Q6H PRN cetirizine (Zyrtec) 10 mg PO DAILY PRN fluticasone propionate 50 mcg/actuation (Flonase Allergy Relief) 1 spray intranasal DAILY 30 days gabapentin 300 mg PO TID quetiapine 25 mg PO BID@0900,1500 30 days quetiapine 100 mg PO BEDTIME 30 days risperidone 2 mg PO BID Ventolin HFA 90 mcg/actuation (albuterol sulfate) 2 puffs inhalation Q6H PRN 30 days NS Tobacco use date assessed: 01/10/24 Dental Screening Dental Screen Date: 01/10/24 HPI HPI Comments History of Present Illness Details This is a 28-year-old female with moderate recurrent major depression, schizoaffective disorder, history of polysubstance abuse and morbid obesity that complains of right hip pain that has been present for awhile. She is 35 weeks . I told her I can not give her more than Tylenol and she is asking for Tylenol 3. I increase Tylenol dose. Depression and schizoaffective disorder are follow by Psychiatry and has been stable with medications. She denies the use of any controlled substance for over 6 months. She is not in any rehab program. She is a smoker would like the patch. No acute complaints. [facility] Medical History (Updated 01/30/24 @ 10:12 by Mayda Rosenbaum MD) Cocaine abuse Acute psychosis Schizophrenia STD exposure Moderate recurrent major depression PUD (peptic ulcer disease) HSV (herpes simplex virus) infection Mild persistent asthma, uncomplicated Pneumonia Pulmonary embolism Asthma COVID-19 Sleeping difficulties Surgical History No history of previous surgery Family History Mother Hypertension Father No problems noted. Other Mental health disorder Social History (Updated 01/30/24 @ 09:59 by Mayda Rosenbaum MD) Household Members: Friend(s) Housing: Apartment Do you presently have visiting nurse or other home services: No Unable to assess alcohol history related to: Unable to respond Alcohol intake: never Patient Tobacco Use Status: Current everyday Tobacco user Tobacco use type: Cigarette Cigarettes Per Day: 20 e-Cigarette/Vaping Use: Currently Using Second Hand Smoke Exposure: No Substance Use Type: Crack/Cocaine and Opiates service: No Current occupational status: unemployed Sexual orientation: Straight/Heterosexual Cognitive needs: No Hearing needs: No Vision needs: No Female Reproductive History Menstrual Age of Menarche: 11 Questionnaire PHQ-9 Over the last 2 weeks, how often have you been bothered by any of the following problems? 1. Little interest or pleasure in doing things: several days 2. Feeling down, depressed, or hopeless: not at all 3. Trouble falling or staying asleep, or sleeping too much: nearly every day 4. Feeling tired or having little energy: several days 5. Poor appetite or overeating: several days 6. Feeling bad about yourself - or that you are a failure or have let yourself or your family down: several days 7. Trouble concentrating on things, such as reading the newspaper or watching television: not at all 8. Moving or speaking so slowly that other people could have noticed. Or the opposite - being so fidgety or restless that you have been moving around a lot more than usual: several days 9. Thoughts that you would be better off or of hurting yourself in some way: not at all Total score: 8 Depression Screening Interpretation: Positive Depression Screening Follow-up: Existing condition, In treatment, Community Mental Health Worker F/U and Follow-up Visit Requested Depression Screening Done: Yes 25991 - PHQ-9 Billing: Yes Source: Developed by Drs. Rufus Lema, Harleen Bonner, Girish Duggan and colleagues, with an educational shane from [employer]. Thrive Questionnaire Date Thrive assessed: 01/30/24 I am a: Patient What is your living situation today?: I have a steady place to live Within the past 12 months, did the food you bought not last and you didn't have the money to get more?: Never true Within the past 12 months, did you worry whether your food would run out before you got money to buy more?: Never true Do you have trouble paying for medicines?: No Do you have trouble getting transportation to medical appointments?: No Do you have trouble paying your heating and electricity bill?: No Do you have trouble taking care of your child, family member or friend?: No Do you have trouble with day-to-day activities such as bathing, preparing meals, shopping, managing finances, etc.?: No Are you currently unemployed and looking for a job?: No Are you interested in more education?: No Please select the resources that you would like help with: None Currently or been in a relationship where the following occur: No concerns reported THRIVE Score: 0 AUDIT C Alcohol Use Questionnaire (AUDIT-C) 1. How often do you have a drink containing alcohol?: Never Total Score: 0 Score Reviewed/Action Taken: No JOHN-7 AMB Questionnaire JOHN-7 Date JOHN - 7 assessed: 01/30/24 Feeling nervous, anxious, or on edge: 3 = Nearly every day Not being able to stop or control worryin = More than half the days Worrying too much about different things: 3 = Nearly every day Trouble relaxin = Nearly every day Being so restless that it is hard to sit still: 1 = Several days Becoming easily annoyed or irritable: 3 = Nearly every day Feeling afraid as if something awful might happen: 1 = Several days Total JOHN-7 score (0-4 normal; 5-9 mild; 10-14 moderate; 15-21 severe): 16 Source: Developed by Drs. Rufus Lema, Harleen Bonner, Girish Duggan and colleagues, with an educational shane from [employer]. JOHN-7 Assessment Billing JOHN-7 Assessment Tool: JOHN-7 Assessment 95828 Review of Systems Const All systems reviewed & are unremarkable except as noted in HPI and below Card Denies chest pain at rest, Denies chest pain with activity, Denies edema, Denies irregular heart rhythm, Denies claudication, Denies dyspnea, Denies dyspnea on exertion, Denies orthopnea, Denies paroxysmal nocturnal dyspnea and Denies slow heart rate Resp Denies cough, Denies dyspnea and Denies dyspnea on exertion GI Denies abdominal pain, Denies change in bowel habits, Denies excessive flatus, Denies nausea and Denies vomiting Denies urinary incontinence, Denies urinary hesitancy and Denies urinary urgency Musc Denies atrophy, Denies deformity and Denies limited range of motion Physical exam (Primary Care) Vital Signs: Last Vital Signs BP 110/70 01/30/24 09:48 BMI result Body Mass Index 43.2 BMI Assessment/Plan discussion: High BMI High, discussed plan: lifestyle, weight reduction, dietary and physical activity Tobacco/Smoking Status: Tobacco use Status Tobacco use date assessed 01/10/24 01/30/24 09:46 Patient Tobacco Use Status Current everyday Tobacco 01/30/24 09:46 Tobacco use type Cigarette 01/30/24 09:46 e-Cigarette/Vaping Use Currently Using 01/30/24 09:46 Are you ready to quit: Yes Tobacco cessation counseling provided: Yes Items discussed: Nicotine replacement and QuitWorks Relapse Prevention: discussed the importance of a supportive environment, discussed extending NRT, discussed negative mood or depression after quitting, weight gain after smoking is common and discussed dietary, exercise and/or lifestyle changes Number of minutes spent counselin CPT code: 91922 - 4-10 Minutes PHQ-9: PHQ-9 Score PHQ-9: Total score 8 01/30/24 09:54 Depression Screening Interpretation: Positive Depression Screening Follow-up: Existing condition, In treatment, Community Mental Health Worker F/U and Follow-up Visit Requested Thrive Assessment: Date of Thrive Assessment Date Thrive assessed 01/30/24 01/30/24 09:54 Currently or been in a relationship where the following occur: No concerns reported Resp Effort & Inspection: normal respiratory effort Auscultation: clear to auscultation bilaterally Cardio Jugular venous distension: no JVD Rate: regular rate Rhythm: regular rhythm Heart sounds: S1 normal heart sound present and S2 normal heart sound present Extrem General: Yes full ROM Assessment and Plan Assessment & Plan (1) Morbid obesity with BMI of 40.0-44.9, adult: Code(s): E66.01 - Morbid (severe) obesity due to excess calories; Z68.41 - Body mass index [BMI] 40.0-44.9, adult Plan: Start diet and exercise. BMI goal is less than 30. (2) Moderate recurrent major depression: Code(s): F33.1 - Major depressive disorder, recurrent, moderate Plan: Continue Risperdal and Seroquel. (3) Schizoaffective disorder: Code(s): F25.9 - Schizoaffective disorder, unspecified Qualifiers: Schizoaffective disorder type: unspecified Qualified Code(s): F25.9 - Schizoaffective disorder, unspecified Plan: Continue Seroquel and Risperdal. (4) Polysubstance (including opioids) dependence w/o physiol dependence: Code(s): F19.20 - Other psychoactive substance dependence, uncomplicated Plan: Advised to look for supportive environment. (5) Right hip pain: Code(s): M25.551 - Pain in right hip Plan: Start acetaminophen 650 mg. Orders: Orders Complete Blood Count Auto Diff Today D64.9 - Anemia, unspecified IRON PROFILE Today D64.9 - Anemia, unspecified Medications: New nicotine 1 patch transdermal DAILY 28 days 28 ea 0RF acetaminophen ER 1,300 mg (2 x 650 mg) PO Q8H 30 days PRN 180 tabs 2RF pain Refilled acetaminophen 1,000 mg (2 x 500 mg) PO Q6H PRN 30 caps 0RF pain H92.03 - Otalgia, bilateral Coding Level of Care Code Est Pt Level 4 (14126) Complex EM visit Add On G2211 Diagnoses Morbid obesity with BMI of 40.0-44.9, adult E66.01; Z68.41 Moderate recurrent major depression F33.1 Schizoaffective disorder, unspecified type F25.9 Schizoaffective disorder type: unspecified Polysubstance (including opioids) dependence w/o physiol dependence F19.20 Right hip pain M25.551 Additional Codes JOHN-7 Assessment Billing - JOHN-7 Assessment Tool: JOHN-7 Assessment 23265 ([id number]) Vital Signs *Quality* - CPT code: 52400 - 4-10 Minutes ([id number]) Time Spent (min) 25
[2024-01-30 09:48] VITALS: BP 110/70; BMI 43.2
== END 2024-01-30 10:06 | disposition home or self-care (01) ==
PROVIDERS: PCP Internal Medicine; Visit Provider Internal Medicine
DX: F33.1 Major depressive disorder, recurrent, moderate (principal); E66.01 Morbid (severe) obesity due to excess calories; Z68.41 Body mass index [BMI] 40.0-44.9, adult; F25.9 Schizoaffective disorder, unspecified; F19.20 Other psychoactive substance dependence, uncomplicated; F17.210 Nicotine dependence, cigarettes, uncomplicated; M25.551 Pain in right hip
CPT/HCPCS: 99214; 99406; G2211

== ENCOUNTER 2025-01-22 14:56 | Outpatient (AMB) | payer OTHER, SELFPAY ==
[2025-01-22 14:58] VITALS: BP 120/70; PULSE 80; RESP 18; O2SAT 97; BMI 41.2
--- NOTE | 2025-01-22 14:58 | MHC.PC.OV ---
Vital Signs 01/22/25 14:58 Height 5 ft 2 in Weight 225 lb 8 oz BMI 41.2 BP 120/70 Blood Pressure Location Lt brachial Position Sitting Respiration 18 Pulse 80 Pulse Source Pulse Oximeter Temp Source Temporal Artery Scan Pulse Oximetry (%) 97 Oxygen Delivery Method Room Air Intake Visit Reasons: sore on her inner thighs & discuss weight loss Autocad Technician Required: No Accompanied by: Self / Same As Patient Allergies No Known Allergies (No Known Allergies*) Allergy (Verified 01/22/25 15:12) Medication List - Last Reconciled 01/22/25 by Mayda Rosenbaum MD acetaminophen 1,000 mg (2 x 500 mg) PO Q6H PRN acetaminophen ER 1,300 mg (2 x 650 mg) PO Q8H PRN 30 days cetirizine (Zyrtec) 10 mg PO DAILY PRN fluticasone propionate 50 mcg/actuation (Flonase Allergy Relief) 1 spray intranasal DAILY 30 days gabapentin 300 mg PO TID quetiapine 25 mg PO BID@0900,1500 30 days quetiapine 100 mg PO BEDTIME 30 days risperidone 2 mg PO BID Ventolin HFA 90 mcg/actuation (albuterol sulfate) 2 puffs inhalation Q6H PRN 30 days NS Tobacco use date assessed: 01/22/25 Dental Screening Dental Screen Date: 01/22/25 Did you have a dental visit in the last 12 months?: Yes Did you have a dental problem in the last 6 months where you did not have access to dental care?: No Was dental information given to patient?: Patient has dentist HPI HPI Comments History of Present Illness Details The patient is a 29-year-old female presenting with concerns regarding weight management and skin issues. She has a history of schizoaffective disorder and bipolar disorder, managed with medications including Seroquel, gabapentin, and carbamazepine. Recent changes in her medication regimen were made due to non-adherence with risperidone. The patient reports painful folliculitis on her legs and buttocks, for which she has been prescribed a topical solution. She is classified as morbidly obese with a BMI of 41.2, experiencing fatigue and difficulty with mobility. A referral to a weight management clinic has been discussed. Socially, she smokes cigarettes and consumes alcohol infrequently, primarily wine. [facility] Medical History (Updated 01/22/25 @ 15:54 by Mayda Rosenbaum MD) Cocaine abuse Acute psychosis Schizophrenia STD exposure Moderate recurrent major depression PUD (peptic ulcer disease) HSV (herpes simplex virus) infection Mild persistent asthma, uncomplicated Pneumonia Pulmonary embolism Asthma COVID-19 Sleeping difficulties Surgical History No history of previous surgery Family History Mother Hypertension Father No problems noted. Other Mental health disorder Social History (Updated 01/22/25 @ 15:43 by Mayda Rosenbaum MD) Household Members: Friend(s) Housing: Apartment Do you presently have visiting nurse or other home services: No Alcohol intake: current Alcohol intake frequency: a few times a month Alcohol type: wine Patient Tobacco Use Status: Current everyday Tobacco user Tobacco use type: Cigarette Cigarettes Per Day: 20 e-Cigarette/Vaping Use: Currently Using Second Hand Smoke Exposure: No Substance Use Type: Crack/Cocaine and Opiates service: No Current occupational status: unemployed Sexual orientation: Straight/Heterosexual Cognitive needs: No Hearing needs: No Vision needs: No Female Reproductive History Menstrual Age of Menarche: 11 Questionnaire PHQ-9 Over the last 2 weeks, how often have you been bothered by any of the following problems? 1. Little interest or pleasure in doing things: several days 2. Feeling down, depressed, or hopeless: several days 3. Trouble falling or staying asleep, or sleeping too much: nearly every day 4. Feeling tired or having little energy: nearly every day 5. Poor appetite or overeating: nearly every day 6. Feeling bad about yourself - or that you are a failure or have let yourself or your family down: nearly every day 7. Trouble concentrating on things, such as reading the newspaper or watching television: several days 8. Moving or speaking so slowly that other people could have noticed. Or the opposite - being so fidgety or restless that you have been moving around a lot more than usual: more than half the days 9. Thoughts that you would be better off or of hurting yourself in some way: not at all Total score: 17 Depression Screening Interpretation: Positive (no suicidal thoughts) Depression Screening Follow-up: Existing condition, In treatment and Follow-up Visit Requested Depression Screening Done: Yes 20083 - PHQ-9 Billing: Yes Source: Developed by Drs. Rufus Lema, Harleen Bonner, Girish Duggan and colleagues, with an educational shane from [employer]. Thrive Questionnaire Date Thrive assessed: 01/22/25 I am a: Patient What is your living situation today?: I have a steady place to live Within the past 12 months, did the food you bought not last and you didn't have the money to get more?: Never true Within the past 12 months, did you worry whether your food would run out before you got money to buy more?: Never true Do you have trouble paying for medicines?: No Do you have trouble getting transportation to medical appointments?: No Do you have trouble paying your heating and electricity bill?: No Do you have trouble taking care of your child, family member or friend?: No Do you have trouble with day-to-day activities such as bathing, preparing meals, shopping, managing finances, etc.?: No Are you currently unemployed and looking for a job?: No Are you interested in more education?: No Please select the resources that you would like help with: None Currently or been in a relationship where the following occur: No concerns reported THRIVE Score: 0 AUDIT C Alcohol Use Questionnaire (AUDIT-C) 1. How often do you have a drink containing alcohol?: 2-4 times a month 2. How many drinks containing alcohol do you have on a typical day when you are drinking?: 1 or 2 3. How often do you have six or more drinks on one occasion?: Never Total Score: 2 Score Reviewed/Action Taken: No JOHN-7 AMB Questionnaire JOHN-7 Date JOHN - 7 assessed: 01/22/25 Feeling nervous, anxious, or on edge: 3 = Nearly every day Not being able to stop or control worryin = Nearly every day Worrying too much about different things: 3 = Nearly every day Trouble relaxin = Nearly every day Being so restless that it is hard to sit still: 3 = Nearly every day Becoming easily annoyed or irritable: 3 = Nearly every day Feeling afraid as if something awful might happen: 3 = Nearly every day Total JOHN-7 score (0-4 normal; 5-9 mild; 10-14 moderate; 15-21 severe): 21 Source: Developed by Drs. Rufus Lema, Harleen Bonner, Girish Duggan and colleagues, with an educational shane from [employer]. JOHN-7 Assessment Billing JOHN-7 Assessment Tool: JOHN-7 Assessment 22156 Review of Systems Const All systems reviewed & are unremarkable except as noted in HPI and below Card Denies chest pain at rest, Denies chest pain with activity, Denies edema, Denies irregular heart rhythm, Denies claudication, Denies dyspnea, Denies dyspnea on exertion, Denies orthopnea, Denies paroxysmal nocturnal dyspnea and Denies slow heart rate Resp Denies cough, Denies dyspnea and Denies dyspnea on exertion GI Denies abdominal pain, Denies change in bowel habits, Denies excessive flatus, Denies nausea and Denies vomiting Denies urinary incontinence, Denies urinary hesitancy and Denies urinary urgency Musc Denies atrophy, Denies deformity and Denies limited range of motion Physical exam (Primary Care) Vital Signs: Last Vital Signs Pulse 80 01/22/25 14:58 Resp 18 01/22/25 14:58 BP 120/70 01/22/25 14:58 Pulse Ox 97 01/22/25 14:58 Oxygen Delivery Method Room Air 01/22/25 14:58 BMI result Body Mass Index 41.2 BMI Assessment/Plan discussion: High BMI High, discussed plan: lifestyle, weight reduction, dietary and physical activity Tobacco/Smoking Status: Tobacco use Status Tobacco use date assessed 01/22/25 01/22/25 15:07 Patient Tobacco Use Status Current everyday Tobacco 01/22/25 15:07 Tobacco use type Cigarette 01/22/25 15:07 e-Cigarette/Vaping Use Currently Using 01/22/25 15:07 PHQ-9: PHQ-9 Score PHQ-9: Total score 17 01/22/25 15:07 Depression Screening Interpretation: Positive (no suicidal thoughts) Depression Screening Follow-up: Existing condition, In treatment and Follow-up Visit Requested Thrive Assessment: Date of Thrive Assessment Date Thrive assessed 01/22/25 01/22/25 15:07 Currently or been in a relationship where the following occur: No concerns reported Resp Effort & Inspection: normal respiratory effort Auscultation: clear to auscultation bilaterally Cardio Jugular venous distension: no JVD Rate: regular rate Rhythm: regular rhythm Heart sounds: S1 normal heart sound present and S2 normal heart sound present Extrem General: Yes full ROM Coding Level of Care Code Est Pt Level 4 (55243) Complex EM visit Add On G2211 Diagnoses Moderate recurrent major depression F33.1 Schizoaffective disorder, unspecified type F25.9 Schizoaffective disorder type: unspecified Bipolar disorder F31.9 Morbid obesity with BMI of 40.0-44.9, adult E66.01; Z68.41 Folliculitis L73.9 Additional Codes PHQ-9 - 67442 - PHQ-9 Billing: Yes ([id number]) JOHN-7 Assessment Billing - JOHN-7 Assessment Tool: JOHN-7 Assessment 39991 ([id number]) Time Spent (min) 24 Assessment & Plan Assessment & Plan (1) Moderate recurrent major depression: Code(s): F33.1 - Major depressive disorder, recurrent, moderate Category: Medical (2) Schizoaffective disorder: Code(s): F25.9 - Schizoaffective disorder, unspecified Category: Medical Qualifiers: Schizoaffective disorder type: unspecified Qualified Code(s): F25.9 - Schizoaffective disorder, unspecified (3) Bipolar disorder: Code(s): F31.9 - Bipolar disorder, unspecified Category: Medical (4) Morbid obesity with BMI of 40.0-44.9, adult: Code(s): E66.01 - Morbid (severe) obesity due to excess calories; Z68.41 - Body mass index [BMI] 40.0-44.9, adult Category: Medical (5) Folliculitis: Code(s): L73.9 - Follicular disorder, unspecified Category: Medical Plan The patient will be referred to a weight management clinic to explore options for addressing her morbid obesity, including potential surgical interventions and medication management. Blood work will be performed to evaluate thyroid function and other relevant health parameters. For the management of folliculitis, a topical cream will be prescribed to reduce symptoms. Psychiatric medications, including Seroquel and carbamazepine, will be continued with potential adjustments based on further psychiatric assessment. Patient was informed and verbally consented to the use of an ambient scribe for clinic note documentation during this visit. Orders: Orders Thyroid Stimulating Hormone Today E66.01 - Morbid (severe) obesity due to excess calories, Z68.41 - Body mass index [BMI] 40.0-44.9, adult Comprehensive [place]. Panel Fast Today E66.01 - Morbid (severe) obesity due to excess calories, Z68.41 - Body mass index [BMI] 40.0-44.9, adult Lipid Panel Today E66.01 - Morbid (severe) obesity due to excess calories, E78.5 - Hyperlipidemia, unspecified, Z68.41 - Body mass index [BMI] 40.0-44.9, adult Complete Blood Count Auto Diff Today E66.01 - Morbid (severe) obesity due to excess calories, Z68.41 - Body mass index [BMI] 40.0-44.9, adult Referrals Medical Weight Management Referral E66.01 - Morbid (severe) obesity due to excess calories, Z68.41 - Body mass index [BMI] 40.0-44.9, adult Medications: New mupirocin 2% (Centany) 1 appl topical BID 15 grams 0RF 2 weeks
--- OUTSIDE RECORDS SUMMARY | 2025-01-22 15:47 | XMS_ITS | Clinical Summary ---
Author Organization [facility] Address [address] [place] [address] Care Team Providers Care Station Mechanic Apprentice Name Role Phone Unavailable Primary Care Provider Unavailabl e Source Comments PLEASE NOTE, if this patient is a minor, it may be UNLAWFUL to discuss sensitive information that is contained in these records (such as FAMILY PLANNING, MENTAL HEALTH or SUBSTANCE ABUSE) with the minor patient's parent or other person without the patient's specific authorization.[facility] Allergies No known active allergies Medications No known medications Active Problems No known active problems Encounters Date Type Department Care Team Description 12/07/2024 1:40 PM EDT Office Visit [facility] [address] [place] [phone] Mandy Berger DDS 12/01/2024 12:20 PM EDT Office Visit [facility] [address] [place] [phone] Mandy Berger DDS from Last 3 Months Social History Tobacco Use Types Packs/Day Years Used Date Smoking Tobacco: Every Day Cigarettes Tobacco Cessation:Ready to Q uit: Not Asked Comments Unknown Sex and Gender Information Value Date Recorded Sex Assigned at Not on file Legal Sex Female 1:50 PM PDT Gender Identity Not on file Sexual Orientation Not on file Last Filed Vital Signs Vital Sign Reading Time Taken Comments Blood Pressure 127/91 12/07/2024 1:32 PM EDT Pulse 78 12/07/2024 1:32 PM EDT Temperature - - Respiratory Rate - - Oxygen Saturation - - Inhaled Oxygen Concentration - - Weight - - Height - - Body Mass Index - - Plan of Treatment Upcoming Encounters Date Type Department Care Team (Late st Contact Info) Description 02/01/2025 10:00 AM EDT Office Visit [facility] [address] [place] [phone] Raya Duke DDS [address] [place] [address] Health Maintenance Due Date Last Done Comments Anxiety Screening 1995 Dental Perio Charting 1995 Dental Prophy 1995 HPV Screening 1995 Hepatitis C Screening 1995 Pap + HPV 1995 Tobacco Cessation Counseling (#1) 1995 HIV Screening 2010 Relationship Safety Screening/Counseling 2010 Imm-Hepatitis B (1 of 3 - 19 + 3-dose series) 2014 Imm-Pneumococcal (1 of 2 - PCV) 2014 Cervical Cancer Screening 02/27/2016 Pap Smear 02/27/2016 [id number] () 02/12/2024 Alcohol and Drug Screen 06/13/2024 Depression Annual Screen 06/13/2024 Imm-Influenza (#1) 2025 03/19/2019, 06/22/2017 Dental BW 12/03/2025 12/01/2024 Dental Examination 12/03/2025 12/01/2024 Hypertension Screening (#1) 12/07/2025 Dental FMX/Pano 12/03/2029 12/01/2024 Imm-DTaP/Tdap/Td (2 - Td or Tdap) 12/07/2033 024, 07/15/2015 Cervical Ablation/Cold-Knife Conization Discontinued Cervical Cryotherapy Discontinued Colposcopy Discontinued Endometrial Biopsy Discontinued Excision/Leep Discontinued HPV Genotyping Discontinued Vaginal Pap Discontinued Vulvoscopy Discontinued Procedures Procedure Name Priority Date/Time Associated Diagnosis Comments CASE PRESENTATION SUBS DTL & EXTENSIVE TX PLN Routine 12/07/2024 1:40 PM EDT Abfraction 5 B(V) RESIN-BASED COMPOSITE - ONE SURFACE POSTERIOR Routine 12/07/2024 1:40 PM EDT Abfraction DENTAL CASE MANAGEMENT - MOTIVATIONAL INTV Routine 12/01/2024 12:20 PM EDT Caries of enamel (incipient) Caries Encounter for dental examination Abfraction CASE PRESENTATION SUBS DTL & EXTENSIVE TX PLN Routine 12/01/2024 12:20 PM EDT Encounter for dental examination CARIES RISK ASSESSMENT & DOC FINDING HIGH RISK Routine 12/01/2024 12:20 PM EDT Caries of enamel (incipient) Caries Encounter for dental examination Abfraction NUTRITIONAL COUNSELING CONTROL OF DENTAL DISEASE Routine 12/01/2024 12:20 PM EDT Caries of enamel (incipient) Caries Encounter for dental examination Abfraction ORAL HYGIENE INSTRUCTIONS Routine 2024 12:20 PM EDT Caries of enamel (incipient) Caries Encounter for dental examination Abfraction INTRAORAL - COMP SERIES OF RADIOGRAPHIC IMAGES Routine 12/01/2024 12:20 PM EDT Retained tooth root Caries of enamel (incipient) Defective dental jain Caries Encounter for dental examination Abfraction COMP ORAL EVALUATION - NEW/ESTABLISHED PATIENT Routine 12/01/2024 12:20 PM EDT Caries of enamel (incipient) Caries Encounter for dental examination 13 CROWN - PORCELAIN FUSED PREDOMINANTLY BASE METAL Routine 12/01/2024 12:00 AM EDT 5 DO COMPOSITE - WISDOM (NON BILLABLE) Routine 12/01/2024 12:00 AM EDT 19 O COMPOSITE - WISDOM (NON BILLABLE) Routine 12/01/2024 12:00 AM EDT 4 MOD COMPOSITE - WISDOM (NON BILLABLE) Routine 12/01/2024 12:00 AM EDT 30 O COMPOSITE - WISDOM (NON BILLABLE) Routine 12/01/2024 12:00 AM EDT 3 O COMPOSITE - WISDOM (NON BILLABLE) Routine 12/01/2024 12:00 AM EDT 13 ROOT CANAL - WISDOM (NO BILLABLE) Routine 12/01/2024 12:00 AM EDT 14 ROOT CANAL - WISDOM (NO BILLABLE) Routine 12/01/2024 12:00 AM EDT from Last 3 Months Insurance [place]
== END 2025-01-22 15:50 | disposition home or self-care (01) ==
LOC: HO.HMCH 14:57
PROVIDERS: PCP Internal Medicine; Visit Provider Internal Medicine
DX: F25.9 Schizoaffective disorder, unspecified (principal); F31.9 Bipolar disorder, unspecified; E66.01 Morbid (severe) obesity due to excess calories; Z68.41 Body mass index [BMI] 40.0-44.9, adult; L73.9 Follicular disorder, unspecified

== ENCOUNTER → 2025-01-22 14:56 | Outpatient (BNVA) | payer OTHER, SELFPAY | PROVIDERS: PCP Internal Medicine; Visit Provider Internal Medicine | DX: E66.01 Morbid (severe) obesity due to excess calories (principal); F25.9 Schizoaffective disorder, unspecified; F31.9 Bipolar disorder, unspecified; L73.9 Follicular disorder, unspecified; F17.210 Nicotine dependence, cigarettes, uncomplicated; Z68.41 Body mass index [BMI] 40.0-44.9, adult; Z79.899 Other long term (current) drug therapy | CPT/HCPCS: 96127; 99212 ==

== ENCOUNTER 2025-02-14 13:47 | Outpatient (REF) | payer OTHER, SELFPAY ==
[2025-02-14 14:09] LABS: MANUAL DIFF FLAG NO
[2025-02-14 14:48] LABS: Hematocrit 40.1 % (37.0-47.0); Hemoglobin 13.4 g/dl (12.0-16.0); Imm Gran Abs Auto 0.05 X10*3/uL (0.00-0.03); Imm Gran Pct Auto 0.5 % (0.0-0.4); Lymphocytes Absolute Auto 2.1 X10*3/uL (1.2-4.9); Mean Corpuscular HGB Conc 33.4 g/dl (31.0-35.0); Mean Corpuscular Hemoglobin 29.1 pg (27.0-33.0); Mean Corpuscular Volume 87.2 fL (80.0-98.0); NRBC Abs Auto 0.000 X10*3/uL (0.0-0.012); NRBC Pct Auto 0.0 /100WBC (0.0-0.2); Platelet Count 265 X10*3/uL (160-400); Red Blood Count 4.60 X10*6/uL (4.20-5.50); White Blood Count 9.7 X10*3/uL (4.8-10.8)
[2025-02-14 14:57] LABS: Hemoglobin A1C 105.1033 umol/L; Total Hemoglobin (HGBA1C) 3386.3548 umol/L
[2025-02-14 15:26] LABS: Cannabinoid Screen Urine Not Detected (Not Detect)
[2025-02-14 15:41] LABS: Alanine Aminotransferase 35 U/L (0-31); Albumin Level 4.5 g/dL (3.5-5.0); Alkaline Phosphatase 100 U/L (39-117); Anion Gap 12 (12-20); Aspartate Amino Transferase 31 U/L (5-31); Blood Urea Nitrogen 12 mg/dL (9-16); Calcium 9.0 mg/dL (8.4-10.2); Carbon Dioxide 20 mmol/L (22-29); Chloride 107 mmol/L (96-108); Cholesterol 255 mg/dL (<200); Estimated Glomerular Filt Rate > 60; HDL Cholesterol 42 mg/dL (>40); Potassium 4.2 mmol/L (3.3-5.1); Sodium 135 mmol/L (135-145); Total Protein 8.2 g/dL (6.5-8.0); Triglycerides 355 mg/dL (<150)
[2025-02-14 15:43] LABS: Free T4 (Free Thyroxine) 0.82 ng/dL (0.71-1.85)
[2025-02-14 15:45] LABS: Thyroid Stimulating Hormone 2.85 uIU/mL (0.32-4.0)
[2025-02-14 16:00] LABS: Folate 9.8 ng/mL (> or = 4.0); Vitamin B12 259 pg/mL (200-900)
== END 2025-02-14 13:48 | disposition home or self-care (01) ==
LOC: HO.LAB 13:47
PROVIDERS: Absent Provider Nurse Practitioner Psychiatric/Mental Health; PCP Internal Medicine; Visit Provider Internal Medicine
DX: E78.5 Hyperlipidemia, unspecified (principal); E66.01 Morbid (severe) obesity due to excess calories; Z68.41 Body mass index [BMI] 40.0-44.9, adult; Z79.899 Other long term (current) drug therapy
CPT/HCPCS: 36415; 80053; 80061; 80307; 82306; 82607; 82679; 82746; 83036; 84144; 84439; 84443; 85025

== ENCOUNTER 2025-02-20 08:15 | Outpatient (AMB) | payer OTHER, SELFPAY ==
--- OUTSIDE RECORDS SUMMARY | 2025-02-20 09:22 | XMS_ITS | Clinical Summary ---
Author Organization [facility] Address [address] [place] [address] Care Team Providers Care Weed Thinner Name Role Phone Unavailable Primary Care Provider [...] Description 12/07/2024 1:40 PM EDT Office Visit [facility] [address] [place] [phone] Mandy Berger DDS 12/01/2024 12:20 PM EDT Office Visit [facility] [address] [place] [phone] Mandy Berger DDS from Last 3 Months [...] Mass Index - - Plan of Treatment Health Maintenance Due Date Last Done Comments [...] Cervical Cancer Screening 02/27/2016 Pap Smear 02/27/2016 [id number] (1 - season) 2024 Alcohol and Drug Screen 06/13/2024 Depression Annual [...] root Caries of enamel (incipient) Defective dental mormon Caries Encounter for dental examination Abfraction COMP [...] AM EDT from Last 3 Months Insurance [place]
--- NOTE | 2025-02-20 12:30 | MHC.OFFVISWM ---
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 Allergies No Known Allergies (No Known Allergies*) Allergy (Verified 02/20/25 12:31) Medication List - Last Reconciled 02/20/25 by Mitesh Pierre MD acetaminophen ER 1,300 mg (2 x 650 mg) PO Q8H PRN 30 days carbamazepine (Tegretol) 200 mg PO BID cetirizine (Zyrtec) 10 mg PO DAILY PRN fluticasone propionate 50 mcg/actuation (Flonase Allergy Relief) 1 spray intranasal DAILY 30 days gabapentin 300 mg PO TID mupirocin 2% (Centany) 1 appl topical BID 2 weeks quetiapine 50 mg PO BEDTIME Ventolin HFA 90 mcg/actuation (albuterol sulfate) 2 puffs inhalation Q6H PRN 30 days NS HPI HPI TV HIGH PRESSURE CLEANER SWL BMI 41.4: Details: Start time: 12.16pm, End time: 1.01pm ?I spent 40 minutes speaking with the patient on the phone plus an additional 5 minutes reviewing and updating records for a total of 45 minutes HPI Comments Details: Previous weight loss efforts: none Wakes up: 8am, Sleeps: 11pm Breakfast: skips Lunch: 1pm (rice, beans, meat) Dinner: 6pm (as lunch) Snacks: 2 snacks before lunch (sandwich, chips, hot pocket), 8pm (ice cream or chips) Exercise: none Beverages: Coffee: (2 cups/d with milk and sugar), Tea: none, Soda: regular Pepcid and Mountain Dew daily, Juice: regular juices daily, ETOH: none PFSH Medical History Cocaine abuse Acute psychosis Schizophrenia STD exposure Moderate recurrent major depression PUD (peptic ulcer disease) HSV (herpes simplex virus) infection Mild persistent asthma, uncomplicated Pneumonia Pulmonary embolism Asthma COVID-19 Sleeping difficulties Surgical History No history of previous surgery Family History Mother Hypertension Father No problems noted. Other Mental health disorder Social History (Updated 02/19/25 @ 14:09 by Ashley Medina CMA) Household Members: Friend(s) Housing: Apartment Do you presently have visiting nurse or other home services: No Alcohol intake: former Patient Tobacco Use Status: Former Tobacco user Tobacco use type: Cigarette Cigarettes Per Day: 20 e-Cigarette/Vaping Use: Currently Using Second Hand Smoke Exposure: No Substance Use Type: Crack/Cocaine and Opiates service: No Current occupational status: unemployed Sexual orientation: Straight/Heterosexual Cognitive needs: No Hearing needs: No Vision needs: No Female Reproductive History Menstrual Age of Menarche: 11 Quality Reporting (2019) Adult ([facility] 13808/04/68) Smoking risk assessment performed?: Yes Patient Tobacco Use Status: Former Tobacco user Telehealth Telehealth Telehealth Platform: Telephone Location of provider rendering services: practice address Location of patient: address on file Patient Identification confirmed using: Name, : Yes Telehealth method: voice only Patient verbally consented to treatment: Yes Patient verbally consented to billing insurance company: Yes Patient informed of any privacy concerns related to visit: Yes Minutes spent on Phone/Video with Pt.: 45 Assessment & Plan Assessment & Plan (1) Morbid obesity with BMI of 40.0-44.9, adult: Code(s): E66.01 - Morbid (severe) obesity due to excess calories; Z68.41 - Body mass index [BMI] 40.0-44.9, adult Category: Medical Plan: 1.? Plan for lap sleeve gastrectomy. If diaphragmatic or ventral hernias are present at time of surgery, these will be repaired laparoscopically as well. I emphasized the importance of close follow-up, adherence to instructions and good communication. The surgery does not replace the need to change your lifestlyle which is the cause of the obesity problem. The surgery provides the motivation to try again to change your lifestyle, it reduces the appetite and make the transition to a better lifestyle easier and doubles the amount of weight you would lose compared to doing the lifestyle change without the surgery. You will need to be on a liquid diet with protein shakes for 2 weeks before surgery to maximize weight loss and boost your nutritional status to recover better from surgery and also for the first two weeks after surgery to let the stomach heal before we introduce other foods. After the first 2 weeks we will introduce protein bars and soft foods like scrambled eggs, cottage cheese and yogurt and after the 6th week will introduce meat, fish and cooked vegetables in small amounts. Over time you should be able to eat everything in small amounts. Side effects like nausea, vomiting, heartburn or abdominal pain are not common in the practice unless you are not following in the practice. This operation requires lifetime commitment to following in our practice and communication with me. You will much less weight and experience side effects if you don?t communicate or not following in the practice. Complications are rare and in our practice is about 1/10 of the national average. However, you can develop bleeding that may require transfusion (hasn?t happened for year in the practice), you may from complications (we did not have any deaths in the practice) and infections. Infections are usually a result of breakdown in communication or not understanding or following directions correctly. They are difficult to treat, they can happen during the first 6 weeks, they may require to be in the hospital for weeks or even months, not being able to eat by mouth and you may have drains and surgeries to try and correct the issue. Other risks and complications include possible conversion to an open procedure, leaks, small bowel obstruction, blood clots, cardiac, or pulmonary complications, as foundry patternmaker complications such as ulcers, insufficient weight loss and vitamin deficiencies. 2.?Nutritional counseling. Start with one premade PREMIER protein (buy at [employer] or [employer]) shake (mix 4oz of Premier mixed with 4oz low fat unsweetened almond milk each) at 9am-11am, one protein bar (Fit Crunch protein bar, buy at [employer], or [employer]) at 12pm-2pm, another premade PREMIER protein shake (mix 4oz of Premier mixed with 4oz low fat unsweetened almond milk each) at 3pm-5pm, dinner at 6pm (8 forks of protein and 8 forks of salad/vegetables) and one more another Fit Crunch protein bar at 8pm-10pm. So you do 2 protein shakes, 2 protein bars and one meal per day. Meal to include lean meat (beef, fish, pork, turkey, chicken), or faroese yogurt, or egg whites, or beans with a salad with olive oil and fruits (berries, pears, apples, kiwi). Avoid salt, breads, potatoes, rice, pasta, desserts. 3. Each shake would be drunk slowly, like coffee in a period of 2 hours. 4. Cut each bar in 4 pieces and eat each piece in 30min ?to make each bar last 2 hours. 5. I emphasized the importance of measuring accurately the food portion and measure it when serving the food in plate 6. The meal portions include 8 full-size forks of meat and 8 full-size forks of salad. You always eat the meat portion but you can replace up to 4 forks for salad/vegetables with rice, potatoes or pasta, or a fruit ?if you like. The less you do it the better weight loss will be. 7. One full-size fork is what it can be scooped on the fork without falling aside and not what can be bit with the fork. Use regular forks like those you find in a typical restaurant. 8.? Please buy the body composition scale we discussed and send me weight measurements as soon as possible and then once a week. Always include your diet and exercise plan. 9. Start walking outside daily, tracking calories with a goal of 300 calories per day, daily. Goal is to burn 2000 calories per week on exercise, which means either 300 calories daily, or 400 calories 5 days per week, or 500 calories 4 days per week, or 650 calories 3 days per week. 10. The best choice would be to purchase a stationary bike, at home that can track calories. Let me know if you do so I can give you an exercise plan. 11.?It is important of avoiding and for at least 18 months postoperatively and has been discussed at the infosession. 12. Goal is to lose at least 1.5-2lbs per week 13. Goal to lose 10% of your weight before surgery, which is about 22lbs. Ultimate weight goal: 204lbs before surgery 14. Please follow the diet plan exactly without any change. If you don't like something about the plan or you feel hungry you need to communicate with me so I can help you revise the plan. You should not change the plan yourself 15. To be scheduled for EGD to assess the stomach's anatomy. The possibility of biopsies was discussed. Patient needs to avoid use of NSAIDs and aspirin for 1 week prior to EGD. You must be on liquids only the day before your endoscopy. Risks of perforation and bleeding was discussed with the patient. This will be an outpatient procedure with IV sedation. 16. Please do the following test: Check your heart rate at rest (at your sleep). Walk for exactly one mile distance as fast as you can and check your heart rate again as soon as you complete the mile walk. Text me the heart rate at rest and after the walk and the time in minutes and seconds that took you to complete the mile walk. You can use your smartphone's stopwatch to track accurately the time it took to walk the mile. Orders: Orders H Pylori Breath Test Today E66.01 - Morbid (severe) obesity due to excess calories, Z68.41 - Body mass index [BMI] 40.0-44.9, adult Complete Blood Count Auto Diff Today E66.01 - Morbid (severe) obesity due to excess calories, Z68.41 - Body mass index [BMI] 40.0-44.9, adult Lipid Panel Today E66.01 - Morbid (severe) obesity due to excess calories, Z68.41 - Body mass index [BMI] 40.0-44.9, adult IRON PROFILE Today E66.01 - Morbid (severe) obesity due to excess calories, Z68.41 - Body mass index [BMI] 40.0-44.9, adult Vitamin B12 and Folate Today E66.01 - Morbid (severe) obesity due to excess calories, Z68.41 - Body mass index [BMI] 40.0-44.9, adult Vitamin B1 Today E66.01 - Morbid (severe) obesity due to excess calories, Z68.41 - Body mass index [BMI] 40.0-44.9, adult XR chest 2V Today E66.01 - Morbid (severe) obesity due to excess calories, Z68.41 - Body mass index [BMI] 40.0-44.9, adult ECG 12 lead EKG Today E66.01 - Morbid (severe) obesity due to excess calories, Z68.41 - Body mass index [BMI] 40.0-44.9, adult Insulin Today E66.01 - Morbid (severe) obesity due to excess calories, Z68.41 - Body mass index [BMI] 40.0-44.9, adult Hemoglobin A1c Today E66.01 - Morbid (severe) obesity due to excess calories, Z68.41 - Body mass index [BMI] 40.0-44.9, adult Comprehensive Met. Panel Today E66.01 - Morbid (severe) obesity due to excess calories, Z68.41 - Body mass index [BMI] 40.0-44.9, adult Zinc Today E66.01 - Morbid (severe) obesity due to excess calories, Z68.41 - Body mass index [BMI] 40.0-44.9, adult C Reactive Protein Today E66.01 - Morbid (severe) obesity due to excess calories, Z68.41 - Body mass index [BMI] 40.0-44.9, adult Vitamin A Today E66.01 - Morbid (severe) obesity due to excess calories, Z68.41 - Body mass index [BMI] 40.0-44.9, adult TSH reflex Free T4 Today E66.01 - Morbid (severe) obesity due to excess calories, Z68.41 - Body mass index [BMI] 40.0-44.9, adult Ferritin Today E66.01 - Morbid (severe) obesity due to excess calories, Z68.41 - Body mass index [BMI] 40.0-44.9, adult Vitamin D 25-OH Total Today E66.01 - Morbid (severe) obesity due to excess calories, Z68.41 - Body mass index [BMI] 40.0-44.9, adult US abdomen comp w elastography Today E66.01 - Morbid (severe) obesity due to excess calories, Z68.41 - Body mass index [BMI] 40.0-44.9, adult FL upper GI w air Today E66.01 - Morbid (severe) obesity due to excess calories, Z68.41 - Body mass index [BMI] 40.0-44.9, adult Referrals Behavioral Health Referral E66.01 - Morbid (severe) obesity due to excess calories, Z68.41 - Body mass index [BMI] 40.0-44.9, adult Nutrition/Dietitian Referral E66.01 - Morbid (severe) obesity due to excess calories, Z68.41 - Body mass index [BMI] 40.0-44.9, adult
[2025-02-20 12:40] VITALS: BMI 41.3
== END 2025-02-20 13:02 | disposition home or self-care (01) ==
LOC: HO.HBS 08:15
PROVIDERS: PCP Internal Medicine; Visit Provider Surgery
DX: E66.01 Morbid (severe) obesity due to excess calories (principal); Z68.41 Body mass index [BMI] 40.0-44.9, adult
CPT/HCPCS: 99204

== ENCOUNTER 2025-03-20 14:52 | Outpatient (AMB) | payer OTHER, SELFPAY ==
--- NOTE | 2025-03-20 15:09 | MHC.PC.OV ---
Vital Signs 03/20/25 15:10 Height 5 ft 2 in Weight 227 lb 8 oz BMI 41.6 BP 118/66 Blood Pressure Location Lt brachial Position Sitting Pulse 87 Pulse Source Pulse Oximeter Temp 97.3 F Temp Source Temporal Artery Scan Pulse Oximetry (%) 97 Oxygen Delivery Method Room Air Intake Visit Reasons: (R) knee and back pain Intake Note: Patient is here to follow up on Right knee and back pain. Hydrographic Engineer Required: No Assigner: Present Accompanied by: Dependent of Minor Dependent Allergies No Known Allergies (No Known Allergies*) Allergy (Verified 03/20/25 15:10) Tobacco use date assessed: 03/20/25 Dental Screening Dental Screen Date: 01/22/25 HPI HPI Comments History of Present Illness Details The patient is a 30-year-old female presenting with chronic back pain and knee pain with locking. The patient reports that she fell on stairs about a year ago, which resulted in severe back pain persisting for several months. She experiences daily pain, suspecting a disc issue, although no formal diagnosis has been made. In 2016, the patient experienced a knee injury where her knee popped out of place, leading to pain and locking, especially after prolonged walking. She has not tried any medications for these conditions, although she requested a Tylenol refill, which she feels is insufficient for her pain management. The patient is currently eight weeks , which limits the diagnostic and therapeutic options available. She is advised against imaging studies due to potential risks to the fetus and is recommended to pursue physical therapy as a safer alternative during . [facility] Medical History Cocaine abuse Acute psychosis Schizophrenia STD exposure Moderate recurrent major depression PUD (peptic ulcer disease) HSV (herpes simplex virus) infection Mild persistent asthma, uncomplicated Pneumonia Pulmonary embolism Asthma COVID-19 Sleeping difficulties Surgical History No history of previous surgery Family History Mother Hypertension Father No problems noted. Other Mental health disorder Social History Household Members: Friend(s) Housing: Apartment Do you presently have visiting nurse or other home services: No Alcohol intake: former Patient Tobacco Use Status: Former Tobacco user Tobacco use type: Cigarette Cigarettes Per Day: 20 e-Cigarette/Vaping Use: Former Use Second Hand Smoke Exposure: Yes Substance Use Type: Crack/Cocaine and Opiates service: No Current occupational status: unemployed Sexual orientation: Straight/Heterosexual Cognitive needs: No Hearing needs: No Vision needs: No Female Reproductive History Menstrual Age of Menarche: 11 Questionnaire Thrive Questionnaire Date Thrive assessed: 01/22/25 I am a: Patient What is your living situation today?: I have a steady place to live Within the past 12 months, did the food you bought not last and you didn't have the money to get more?: Never true Within the past 12 months, did you worry whether your food would run out before you got money to buy more?: Never true Do you have trouble paying for medicines?: No Do you have trouble getting transportation to medical appointments?: No Do you have trouble paying your heating and electricity bill?: No Do you have trouble taking care of your child, family member or friend?: No Do you have trouble with day-to-day activities such as bathing, preparing meals, shopping, managing finances, etc.?: No Are you currently unemployed and looking for a job?: No Are you interested in more education?: No Please select the resources that you would like help with: None Currently or been in a relationship where the following occur: No concerns reported THRIVE Score: 0 JOHN-7 AMB Questionnaire JOHN-7 Date JOHN - 7 assessed: 01/22/25 Source: Developed by Drs. Rufus Lema, Harleen Bonner, Girish Duggan and colleagues, with an educational shane from [email or web address]. Review of Systems Const Details: Positives besides what was mentioned in HPI are in BOLD Constitutional: No Weight Change, No Fever, No Chills, No Night Sweats, No Fatigue, No Malaise ENT/Mouth: No Hearing Changes, No Ear Pain, No Nasal Congestion, No Sinus Pain, No Hoarseness, No sore throat, No Rhinorrhea, No Swallowing Difficulty Eyes: No Eye Pain, No Swelling, No Redness, No Foreign Body, No Discharge, No Vision Changes Cardiovascular: No Chest Pain, No SOB, No PND, No Dyspnea on Exertion, No Orthopnea, No Claudication, No Edema, No Palpitations Respiratory: No Cough, No Sputum, No Wheezing, No Smoke Exposure, No Dyspnea Gastrointestinal: No Nausea, No Vomiting, No Diarrhea, No Constipation, No Pain, No Heartburn, No Anorexia, No Dysphagia, No Hematochezia, No Melena, No Flatulence, No Jaundice Genitourinary: No Dysmenorrhea, No DUB, No Dyspareunia, No Dysuria, No Urinary Frequency, No Hematuria, No Urinary Incontinence, No Urgency, No Flank Pain, No Urinary Flow Changes, No Hesitancy Musculoskeletal: No Arthralgias, No Myalgias, No Joint Swelling, No Joint Stiffness, No Back Pain, No Neck Pain, No Injury History Skin: No Skin Lesions, No Pruritis, No Hair Changes, No Breast/Skin Changes, No Nipple Discharge Neuro: No Weakness, No Numbness, No Paresthesias, No Loss of Consciousness, No Syncope, No Dizziness, No Headache, No Coordination Changes, No Recent Falls Psych: No Anxiety/Panic, No Depression, No Insomnia, No Personality Changes, No Delusions, No Rumination, No SI/HI/AH/VH, No Social Issues, No Memory Changes, No Violence/Abuse Hx., No Eating Concerns Heme/Lymph: No Bruising, No Bleeding, No Transfusions History, No Lymphadenopathy Endocrine: No Polyuria, No Polydipsia, No Temperature Intolerance Physical exam (Primary Care) Vital Signs: Last Vital Signs Temp 97.3 F 03/20/25 15:10 Pulse 87 03/20/25 15:10 BP 118/66 03/20/25 15:10 Pulse Ox 97 03/20/25 15:10 Oxygen Delivery Method Room Air 03/20/25 15:10 BMI result Body Mass Index 41.6 Tobacco/Smoking Status: Tobacco use Status Tobacco use date assessed 03/20/25 03/20/25 15:10 Patient Tobacco Use Status Former Tobacco user 03/20/25 15:10 Tobacco use type Cigarette 03/20/25 15:10 e-Cigarette/Vaping Use Former Use 03/20/25 15:15 Thrive Assessment: Date of Thrive Assessment Date Thrive assessed 01/22/25 03/20/25 15:10 Currently or been in a relationship where the following occur: No concerns reported Const Other: Pertinent findings are in BOLD GENERAL APPEARANCE NAD, activity normal for age, well developed/ well nourished, no cyanosis, pallor, or diaphoresis. EYES lids/conjunctiva normal. EARS/NOSE/THROAT Mucous membranes moist, nares normal, lips/teeth normal uvula midline without oral pharyngeal erythema, exudate or swelling TMs normal bilaterally. No lymphangitis/lymphedema. HEAD/NECK normocephalic atraumatic, no facial trauma, neck is supple. RESPIRATORY respiratory effort normal, speaks in full sentences, no tripod position, no accessory muscle use. Lungs clear to auscultation without rhonchi, wheezes, rales CARDIAC Regular rate and rhythm, no edema. ABDOMINAL Soft, ND/NT. No evidence of fluid wave. No pulsatile masses on exam, rebound tenderness, Guallpa sign or pain over Mcburney's point. MUSCLES/EXTREMITIES No abnormal range of motion, no swelling. SKIN Warm, pink and dry. No rashes, dermatoses, petechiae or lesions. NEUROLOGICAL Speech is clear and appropriate. Normal level of consciousness. Gait and coordination are normal. 5/5 strength in all extremities. PSYCH Normal mood and affect. Judgement/competence is appropriate Coding Level of Care Code Tele Est Pt Level 3 (16354) Diagnoses Back pain M54.9 Knee pain M25.569 Z34.90 Time Spent (min) 20 Assessment & Plan Assessment & Plan (1) Back pain: Code(s): M54.9 - Dorsalgia, unspecified Category: Medical Plan: - Plan to refer the patient to physical therapy as imaging is not advisable during . - Consideration of Tylenol for pain management, although the patient feels it is insufficient. (2) Knee pain: Code(s): M25.569 - Pain in unspecified knee Category: Medical Plan: - Referral to physical therapy for management of knee pain and locking. (3) : Code(s): Z34.90 - Encounter for supervision of normal , unspecified, unspecified trimester Category: Medical Plan: - Advised against imaging studies due to potential risks. - Recommended consultation with EMERGENCY MEDICINE NURSE PRACTITIONER for medication management during . Especially Gabapentin and Quetiapine. Orders: Orders PT Evaluation and Treatment Today M54.9 - Dorsalgia, unspecified Medications: Refilled mupirocin 2% (Centany) 1 appl topical BID 15 grams 0RF 2 weeks Ventolin HFA 90 mcg/actuation (albuterol sulfate) 2 puffs inhalation Q6H PRN 8 grams 2RF shortness of breath or wheezing 30 days NS acetaminophen ER 1,300 mg (2 x 650 mg) PO Q8H PRN 180 tabs 2RF pain 30 days
[2025-03-20 15:10] VITALS: BP 118/66; PULSE 87; TEMP 36.3; O2SAT 97; BMI 41.6
== END 2025-03-20 16:34 | disposition home or self-care (01) ==
LOC: HO.HMCH 14:53
PROVIDERS: PCP Internal Medicine; Visit Provider Internal Medicine
DX: M54.9 Dorsalgia, unspecified (principal); M25.569 Pain in unspecified knee; Z34.90 Encounter for supervision of normal pregnancy, unspecified, unspecified trimester

== ENCOUNTER 2025-04-30 11:28 | Outpatient (REF) | payer OTHER, SELFPAY | END 2025-04-30 11:29 | disposition home or self-care (01) | LOC: HO.LNP 11:28 | PROVIDERS: PCP Internal Medicine | DX: J06.9 Acute upper respiratory infection, unspecified (principal); Z13.89 Encounter for screening for other disorder | CPT/HCPCS: 87880; 99212 ==

== ENCOUNTER 2025-04-30 11:28 | Outpatient (AMB) | payer OTHER, SELFPAY ==
[2025-04-30 11:46] VITALS: BP 122/78; PULSE 93; TEMP 36.4; O2SAT 99; BMI 43.2
--- NOTE | 2025-04-30 11:46 | AM.OFFWIN_ITS ---
Intake Vital Signs 04/30/25 11:46 Height 5 ft 2 in Weight 236 lb BMI 43.2 BP 122/78 Blood Pressure Location Lt brachial Position Sitting Pulse 93 Pulse Source Pulse Oximeter Temp 97.5 F Temp Source Oral Pulse Oximetry (%) 99 Oxygen Delivery Method Room Air Intake Visit Reasons: EP Sore throat, cough Intake Note: pt presents with sinus congestion, throat pain and dry coughing x3 weeks Patient Tobacco Use Status: Former Tobacco user Allergies No Known Allergies (No Known Allergies*) Allergy (Verified 04/30/25 11:51) Do you need a note to return to daycare/school/sports/work: No HPI HPI Comments History of Present Illness Details History - The patient is a 30-year-old female pr esenting with a sore throat and persistent cough. - The sore throat is severe, primarily o ccurring upon waking, and has persisted for three weeks. - The cough is dry, persistent, and main ly occurs at night, ongoing for three weeks. - The patient has a history of asthma an d uses an inhaler. - She experienced a fever last week, coi nciding with her daughter's illness. - Reports nausea but denies vomiting or diarrhea. - Does not smoke cigarettes and has no e ar pain. - She denies fever, chills, CP, SOB, abd pain, n/v/d. - She is eating and drinking well. Physical Exam General: Cooperative, healthy appearing, comfortable and no acute distress Orientation/consciousness: Patient oriented x3 Limitations: No limitations Head: Normal to inspection Ears: Hearing grossly normal bilaterally, external ears normal and TM's normal bilaterally Nose: Normal external nose present, normal nares present, and no nasal discharge present. Face and sinus: Sinuses nontender to palpation. Mouth: Normal oral and palatal mucosa present and moist mucous membranes noted. Throat: Tonsils normal. Uvula is midline. Posterior oropharynx with erythema and no exudates. Eyes: Appearance normal, both eyes and all related structures Neck: Normal visual inspection, full ROM. No lymphadenopathy noted. Respiratory: Clear to auscultation bilaterally. Normal respiratory effort, able to speak in complete sentences. No respiratory distress, not tachypneic, no tripod positioning and no use of accessory muscles. Cardiovascular: Regular rate and rhythm. Normal S1 and S2 Skin: No rashes or lesions noted Patient was informed and verbally consented to the use of an ambient scribe for clinic note documentation during this visit [facility] Medical History Cocaine abuse Acute psychosis Schizophrenia STD exposure Moderate recurrent major depression PUD (peptic ulcer disease) HSV (herpes simplex virus) infection Mild persistent asthma, uncomplicated Pneumonia Pulmonary embolism Asthma COVID-19 Sleeping difficulties Surgical History No history of previous surgery Family History Mother Hypertension Father No problems noted. Other Mental health disorder Social History Household Members: Friend(s) Housing: Apartment Do you presently have visiting nurse or other home services: No Alcohol intake: former Patient Tobacco Use Status: Former Tobacco user Tobacco use type: Cigarette Cigarettes Per Day: 20 e-Cigarette/Vaping Use: Former Use Second Hand Smoke Exposure: Yes Substance Use Type: Crack/Cocaine and Opiates service: No Current occupational status: unemployed Sexual orientation: Straight/Heterosexual Cognitive needs: No Hearing needs: No Vision needs: No Female Reproductive History Menstrual Age of Menarche: 11 Review of Systems Const All systems reviewed & are unremarkable except as noted in HPI and below Physical Exam Vital Signs: Last Vital Signs Temp 97.5 F 04/30/25 11:46 Pulse 93 04/30/25 11:46 BP 122/78 04/30/25 11:46 Pulse Ox 99 04/30/25 11:46 Oxygen Delivery Method Room Air 04/30/25 11:46 BMI result Body Mass Index 43.2 Results AMB Rapid Strep AMB Rapid Strep Negative Last Edit by Susan Downey CMA on 04/30/25 12:1 2 Results Reviewed Results Reviewed: Laboratory Last Values Strep Scn Rapid Clinic Negative 04/30/25 12:11 Assessment & Plan Assessment & Plan (1) Upper respiratory tract infection: Code(s): J06.9 - Acute upper respiratory infection, unspecified Qualifiers: URI type: unspecified URI Qualified Code(s): J06.9 - Acute upper respiratory infection, unspecified Plan Most likely URI vs viral illness vs covid vs flu vs RSV rapid was negative in the office plan - Management includes Tessalon Perles and nasal spray - COVID-19, influenza, and RSV ordered. - Management includes [id number] medications like Tylenol and Motrin. - Continue with home medications - will call with the results - follow up if no better Orders: Orders AMB Rapid Strep Screen Today Z13.9 - Encounter for screening, unspecified Medications: New benzonatate 100 mg PO bid-tid PRN 21 caps 0RF Cough 7 days fluticasone propionate 50 mcg/actuation administer into each nostril 1 spray intranasal Q12H 16 grams 0RF Coding Level of Care Code Est Pt Level 3 (62534) Diagnoses Upper respiratory tract infection, unspecified type J06.9 URI type: unspecified URI
== END 2025-04-30 13:41 | disposition home or self-care (01) ==
PROVIDERS: PCP Internal Medicine; Visit Provider Physician Assistant Medical
DX: J06.9 Acute upper respiratory infection, unspecified (principal); Z13.9 Encounter for screening, unspecified

== ENCOUNTER 2025-04-30 13:53 | Outpatient (REF) | payer OTHER, SELFPAY ==
[2025-04-30 14:42] LABS: Resp Syncy Virus RNA Qual PCR NEGATIVE (Negative); SARS COV2 PCR INHOUSE NEGATIVE (Negative)
== END 2025-04-30 13:54 | disposition home or self-care (01) ==
LOC: HO.LAB 13:53
PROVIDERS: Visit Provider Physician Assistant Medical
DX: R09.89 Other specified symptoms and signs involving the circulatory and respiratory systems (principal)
CPT/HCPCS: 87637

== ENCOUNTER 2025-05-07 11:19 | Outpatient (AMB) | payer OTHER, SELFPAY ==
[2025-05-07 11:28] VITALS: BP 130/82; PULSE 101; TEMP 36.9; O2SAT 98; BMI 43.2
--- NOTE | 2025-05-07 11:28 | MHC.OFFWIV ---
Intake Vital Signs 05/07/25 11:28 Height 5 ft 2 in Weight 236 lb BMI 43.2 BP 130/82 Blood Pressure Location Rt brachial Position Sitting Pulse 101 H Pulse Source Pulse Oximeter Temp 98.4 F Temp Source Oral Pulse Oximetry (%) 98 Oxygen Delivery Method Room Air Intake Visit Reasons: EP Sore throat, cough, chest pain, sinus infection Intake Note: pt returns with chest congestion with dry coughing causing chest discomfort and left mid-back pain, sinus congestion, head pressure and headaches, throat feels sore, tingly and raw. pt reports that Benzonatate was of no help. Patient Tobacco Use Status: Former Tobacco user Allergies No Known Allergies (No Known Allergies*) Allergy (Verified 05/07/25 11:31) Do you need a note to return to daycare/school/sports/work: No HPI HPI Comments History of Present Illness Details History - The patient is a 30 year old individual presenting with symptoms of an upper respiratory infection. - The patient reports a worsening cough, nasal congestion, and throat discomfort, particularly severe at night. - Symptoms have persisted for approximately a week, with initial presentation including high fever and chills. - She has a persistent cough, sinus congestion, post nasal drip, and sore throat from coughing. - The patient is currently 14 weeks and has not yet consulted with an OBGYN regarding the illness. - Previous tests for COVID-19, influenza, and RSV were negative last week at her last visit. - She was seen by the OBGYN on 05/02. - She has no abd pain, n/v/d, fever, chills, or sick contacts. . Physical Exam General: Cooperative, healthy appearing, comfortable and no acute distress Orientation/consciousness: Patient oriented x3 Limitations: No limitations Head: Normal to inspection Ears: Hearing grossly normal bilaterally, external ears normal and TM's normal bilaterally Nose: Normal external nose present, normal nares present, and nasal discharge present. Face and sinus: Sinuses nontender to palpation. Mouth: Normal oral and palatal mucosa present and moist mucous membranes noted. Throat: Tonsils normal. Uvula is midline. Posterior oropharynx with erythema and no exudates. Eyes: Appearance normal, both eyes and all related structures Neck: Normal visual inspection, full ROM. No lymphadenopathy noted. Respiratory: Clear to auscultation bilaterally. Normal respiratory effort, able to speak in complete sentences. No respiratory distress, not tachypneic, no tripod positioning and no use of accessory muscles. Cardiovascular: Regular rate and rhythm. Normal S1 and S2. No m/r/g noted. Skin: No rashes or lesions noted Patient was informed and verbally consented to the use of an ambient scribe for clinic note documentation during this visit [facility] Medical History Cocaine abuse Acute psychosis Schizophrenia STD exposure Moderate recurrent major depression PUD (peptic ulcer disease) HSV (herpes simplex virus) infection Mild persistent asthma, uncomplicated Pneumonia Pulmonary embolism Asthma COVID-19 Sleeping difficulties Surgical History No history of previous surgery Family History Mother Hypertension Father No problems noted. Other Mental health disorder Social History Household Members: Friend(s) Housing: Apartment Do you presently have visiting nurse or other home services: No Alcohol intake: former Patient Tobacco Use Status: Former Tobacco user Tobacco use type: Cigarette Cigarettes Per Day: 20 e-Cigarette/Vaping Use: Former Use Second Hand Smoke Exposure: Yes Substance Use Type: Crack/Cocaine and Opiates service: No Current occupational status: unemployed Sexual orientation: Straight/Heterosexual Cognitive needs: No Hearing needs: No Vision needs: No Female Reproductive History Menstrual Age of Menarche: 11 Review of Systems Const All systems reviewed & are unremarkable except as noted in HPI and below Physical Exam Vital Signs: Last Vital Signs Temp 98.4 F 05/07/25 11:28 Pulse 101 H 05/07/25 11:28 BP 130/82 05/07/25 11:28 Pulse Ox 98 05/07/25 11:28 Oxygen Delivery Method Room Air 05/07/25 11:28 BMI result Body Mass Index 43.2 Assessment & Plan Assessment & Plan (1) URI with cough and congestion: Code(s): J06.9 - Acute upper respiratory infection, unspecified Plan Most likely URI vs bronchitis vs sinusitis vs ?pneumonia plan - Stay hydrated - tylenol as needed for pain or fever - will start amoxicillin BID - advised her to call her OBGYN and inform them that she is sick and was prescribed medications before taking them due to - pt can't have a CXR at this time due to the - needs to f/u with PCP or OBGYN - advised the ER if her symptoms are worse Medications: New amoxicillin 500 mg PO Q12H 20 tabs 0RF Coding Level of Care Code Est Pt Level 3 (37871) Diagnoses URI with cough and congestion J06.9
== END 2025-05-07 11:50 | disposition home or self-care (01) ==
PROVIDERS: PCP Internal Medicine; Visit Provider Physician Assistant Medical
DX: J06.9 Acute upper respiratory infection, unspecified (principal)

== ENCOUNTER → 2025-05-07 11:19 | Outpatient (BNVA) | payer OTHER, SELFPAY | PROVIDERS: PCP Internal Medicine; Visit Provider Physician Assistant Medical | DX: J06.9 Acute upper respiratory infection, unspecified (principal) | CPT/HCPCS: 99212 ==

== ENCOUNTER 2025-05-21 15:37 | Outpatient (REF) | payer OTHER, SELFPAY ==
[2025-05-22 11:23] LABS: Resp Syncy Virus RNA Qual PCR NEGATIVE (Negative); SARS COV2 PCR INHOUSE NEGATIVE (Negative)
== END 2025-05-21 15:38 | disposition home or self-care (01) ==
LOC: HO.LAB 15:37
PROVIDERS: Physician Assistant Medical; PCP Internal Medicine
DX: O26.892 Other specified pregnancy related conditions, second trimester (principal); R05.1 Acute cough; R09.89 Other specified symptoms and signs involving the circulatory and respiratory systems; Z3A.17 17 weeks gestation of pregnancy; Z79.899 Other long term (current) drug therapy; Z87.891 Personal history of nicotine dependence
CPT/HCPCS: 87637; 99212

== ENCOUNTER 2025-05-21 15:37 | Outpatient (AMB) | payer OTHER, SELFPAY ==
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
[2025-05-21 15:50] VITALS: BP 128/66; PULSE 101; TEMP 36.8; O2SAT 8; BMI 43.5
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
== END 2025-05-21 16:42 | disposition home or self-care (01) ==
PROVIDERS: PCP Internal Medicine; Visit Provider Physician Assistant Medical
DX: R05.1 Acute cough (principal)

== ENCOUNTER 2025-05-30 10:02 | Emergency (ER) | payer OTHER, SELFPAY ==
[2025-05-30] VITALS (7 sets, daily range): BP systolic 128–152; BP diastolic 61–84; PULSE 109–143; RESP 18–20; TEMP 36.4–37; O2SAT 97–99; BMI 44.2
--- NOTE | ~2025-05-30 | XR_ITS ---
EXAMINATION: XR CHEST CLINICAL INFORMATION: SOB COMPARISON: September 21, 2020. TECHNIQUE: Portable AP upright position. view of the chest was obtained. FINDINGS: Pulmonary reticular nodular pattern. No gross consolidation pleural effusion or pneumothorax. No hyperinflation. Cardiomediastinal silhouette size is normal. Patient's large body habitus/obesity. No free air beneath the diaphragm. XR/XR chest 1V IMPRESSION: Chronic interstitial lung disease. Superimposed acute inflammatory process cannot be excluded. Electronically signed by: Eder Wilhelm MD 05/30/2025 12:03 PM [facility]
[2025-05-30 11:12] LABS: Resp Syncy Virus RNA Qual PCR NEGATIVE (Negative); SARS COV2 PCR INHOUSE NEGATIVE (Negative)
--- NOTE | 2025-05-30 11:41 | ED.URI ---
HPI - URI/Sore Throat General Chief Complaint: Upper Respiratory Symptoms Stated Complaint: COUGH X1M W/CP, 18W Time Seen by Provider: 05/30/25 11:22 Source: patient Mode of arrival: ambulatory Limitations: no limitations History of Present Illness ED Provider: DR. Rubin HPI Narrative: 30-year-old female about 18 weeks with no significant complication patient with history of pulmonary embolism on Lovenox patient was not compliant with her Lovenox for the past few days because the injection hurts emboli, patient presented today with upper respiratory symptoms of difficulty breathing, coughing with yellow sputum, generalized body ache, generalized abdominal pain as a part of generalized body ache, no abdominal contraction, no vaginal bleed or discharge. No lower extremity swelling or pain. A family member is sick with upper respiratory symptoms at home, no recent travel, no recent prolonged immobilization. Related Data Home Medications ?Medication ?Instructions ?Recorded ?Confirmed gabapentin 300 mg capsule 300 mg PO TID 01/10/24 05/28/25 quetiapine 100 mg tablet 50 mg PO BEDTIME 02/19/25 05/28/25 carbamazepine 200 mg tablet 200 mg PO BID 02/20/25 05/28/25 (Tegretol) Previous Rx's ?Medication ?Instructions ?Recorded cetirizine 10 mg tablet (Zyrtec) 10 mg PO DAILY PRN allergy 01/10/24 symptoms #90 tabs acetaminophen 650 mg 1,300 mg (2 x 650 mg) PO Q8H PRN 03/20/25 tablet,extended release pain 30 days #180 tabs mupirocin 2 % topical ointment 1 appl topical BID 2 weeks #15 03/20/25 (Centany) grams Ventolin HFA 90 mcg/actuation 2 puff inhalation Q6H PRN 05/19/25 aerosol inhaler (albuterol sulfate) shortness of breath or wheezing 30 days #8 grams prednisone 50 mg tablet 50 mg PO DAILY 5 days #5 tabs 05/21/25 budesonide-formoterol HFA 80 1 puff inhalation BID severe 05/28/25 mcg-4.5 mcg/actuation aerosol persistent asthma #10.2 grams inhaler (Symbicort) dextromethorphan HBr 10 mg/5 mL 10 mg (5 mL) PO Q6H PRN cough #118 05/28/25 oral liquid mL albuterol sulfate 2.5 mg/3 mL 2.5 mg (3 mL) inhalation Q4-6H PRN 05/30/25 (0.083 %) solution for nebulization shortness of breath or wheezing #90 mL oseltamivir 75 mg capsule (Tamiflu) 75 mg PO BID 5 days #10 caps 05/30/25 prednisone 20 mg tablet 20 mg PO BID #8 tabs 05/30/25 Allergies Allergy/AdvReac Type Severity Reaction Status Date / Time No Known Allergies (No Known Allergy Verified 05/30/25 10:14 Allergies*) Review of Systems Review of Systems: All other systems are reviewed and are negative Constitutional: Reports as per HPI and Reports no additional constitutional complaints Eyes: Reports as per HPI and Reports no additional eye complaints Reports system reviewed and no additional complaints, except as documented Cardiovascular: Reports as per HPI and Reports no additional cardiovascular complaints Respiratory: Reports as per HPI and Reports no additional respiratory complaints Gastrointestinal: Reports as per HPI and Reports no additional gastrointestinal complaints Genitourinary: Reports no additional female genitourinary complaints Musculoskeletal: Reports no additional musculoskeletal complaints Skin/Breast: Reports system reviewed and no additional complaints, except as docu Psychiatric: Reports no additional psychiatric complaints Endocrine: Reports no additional endocrine complaints Hematologic/Lymphatic: Reports no additional hematologic/lymphatic complaints Allergic/Immunologic: Reports no additional allergic/immunologic complaints Reports system reviewed and no additional complaints, except as documented and Reports Abnormal speech present [facility] Past Medical History Medical History Cocaine abuse Acute psychosis Schizophrenia STD exposure Moderate recurrent major depression PUD (peptic ulcer disease) HSV (herpes simplex virus) infection Mild persistent asthma, uncomplicated Pneumonia Pulmonary embolism Asthma COVID-19 Sleeping difficulties Surgical History No history of previous surgery Family History Family History Mother Hypertension Father No problems noted. Other Mental health disorder Social History Social History Household Members: Friend(s) Housing: Apartment Do you presently have visiting nurse or other home services: No Alcohol intake: former Patient Tobacco Use Status: Former Tobacco user Tobacco use type: Cigarette Cigarettes Per Day: 20 Smoked in Last 30 Days: No e-Cigarette/Vaping Use: Former Use Second Hand Smoke Exposure: Yes Use of substances other than those prescribed or required for medical reasons: No Substance Use Type: Crack/Cocaine and Opiates Advance Directives: No Advance Directives Information Provided: Yes Do you have a plan to hurt others: No Plan service: No Current occupational status: unemployed Sexual orientation: Straight/Heterosexual Cognitive needs: No Hearing needs: No Vision needs: No Physical Exam Vital Signs: Vital Signs: Last Vital Signs Temp 98.6 F 05/30/25 16:01 Pulse 121 H 05/30/25 16:01 Resp 20 05/30/25 16:01 BP 128/61 05/30/25 16:01 Pulse Ox 97 05/30/25 16:01 O2 Del Method Room Air 05/30/25 16:01 BMI result Body Mass Index 44.2 Vital signs have been reviewed and appear to be correct. Blood pressure elevated. Heart rate normal. Respiratory rate normal. Temperature normal. Oxygen saturation normal. Appearance: Alert. Oriented X3. No acute distress. Head: Normal external exam. Normocephalic. Atraumatic. No Dale signs noted. No raccoon eyes noted Eyes: PERRLA. EOMI. Conjunctiva and sclera normal. Eyelids normal. ENT: TM's Normal. Pharynx normal. Uvula midline. Moist mucous membranes. No trismus noted. No drooling noted. No muffled voice noted. Neck: Normal inspection. Neck supple. FROM. No adenopathy. Thyroid Normal. No meningeal signs. No neck mass noted. CVS: Normal heart rate and rhythm. Heart sound normal. No murmurs noted. Pulses normal throughout. Respiratory: No respiratory distress. Painless inspiration. Breath sounds normal. Diffuse mild expiratory wheezing with prolonged expiration, No accessory muscle usage noted or decreased air movement noted. Abdomen: Soft and nontender. Bowel sounds normal in all 4 quadrants. No distention noted. No organomegaly noted. No visible injury noted. Back: No CVA tenderness. Full range of motion noted. Skin: Skin warm and dry. Normal skin color. Normal skin turgor. No rashes/lesions/lacerations noted. Extremities: No lower extremity edema. Extremities exhibit normal range of motion. Extremities nontender. Neuro: Oriented X 3. Cranial nerve exam: II-XII are grossly intact No motor deficit. No sensory deficit. Reflexes normal. Course Reevaluation(s) Reevaluation #1: 30-year-old female 18 weeks came in for shortness of breath, patient with history of asthma and bronchitis, patient also had a history exposure to a sick family member with the flu, patient is positive for the flu, found to be tachycardic which is secondary to dehydration and flu infection, patient missed couple doses of Lovenox because of the pain, likely patient D-dimer is negative, no lower extremity swelling or tenderness, all of the above biting making pulmonary embolism is unlikely diagnosis. Patient will be discharged on Tamiflu. Time: 16:04 Medications Administered Discontinued Medications Generic Name Dose Route Start Last Admin Trade Name Freq PRN Reason Stop Dose Admin Acetaminophen 650 mg 05/30/25 11:40 05/30/25 12:13 Acetaminophen 325 Mg Tablet PO 05/30/25 11:41 650 mg ONCE ONE Administration Albuterol Sulfate 5 mg/ 0 mg 05/30/25 11:57 05/30/25 12:14 Albuterol/Ipratropium 3 ml INHALE 05/30/25 11:58 7.5 each ONCE ONE Administration Lactated Ringer's 1,000 mls @ 999 mls/hr 05/30/25 12:45 05/30/25 15:01 Lr IV 05/30/25 13:45 Infused .Q1H1M GARRETT Infusion Lactated Ringer's 1,000 mls @ 999 mls/hr 05/30/25 14:00 05/30/25 14:59 Lr IV 05/30/25 15:00 999 mls/hr .Q1H1M GARRETT Administration Methylprednisolone Sodium Succinate 60 mg 05/30/25 11:40 05/30/25 12:14 Methylprednisolone Sod Succ 125 Mg/2 Ml Vial IVPUSH 05/30/25 11:41 60 mg ONCE ONE Administration Morphine Sulfate 1 mg 05/30/25 13:02 05/30/25 13:11 Morphine Sulfate 4 Mg/Ml Cartridge IVPUSH 05/30/25 13:03 1 mg ONCE ONE Administration Protocol Oseltamivir Phosphate 75 mg 05/30/25 11:40 05/30/25 12:13 Oseltamivir Phosphate 75 Mg Capsule PO 05/30/25 11:41 75 mg ONCE ONE Administration Medical Decision Making Differential Diagnosis Differential Diagnoses: The differential diagnosis associated with the presentation includes (Acute asthma exacerbation, pulmonary embolism, pneumonia, pneumothorax, pleural effusion, bronchitis, cardiomyopathy secondary to .) Admission/Observation Consideration of admission/observation: Escalation of care including admission/observation considered Lab Data MDM Lab Attestation statement: I reviewed the patient's lab results. 05/30/25 12:10 05/30/25 12:10 Labs: Lab Results 05/30/25 05/30/25 05/30/25 Range/Units 10:24 12:10 12:21 WBC 11.4 H (4.8-10.8) X10*3/uL RBC 4.45 (4.20-5.50) X10*6/uL Hgb 13.3 (12.0-16.0) g/dl Hct 40.1 (37.0-47.0) % MCV 90.1 (80.0-98.0) fL MCH 29.9 (27.0-33.0) pg MCHC 33.2 (31.0-35.0) g/dl RDW 13.2 (11.0-16.0) % Plt Count 202 (160-400) X10*3/uL MPV 11.2 (9.4-12.3) fL Immature Gran % (Auto) 1.0 H (0.0-0.4) % Neut % (Auto) 91.6 H (45-73) % Lymph % (Auto) 3.4 L (20-40) % [place] % (Auto) 3.3 (2-11) % Eos % (Auto) 0.4 (0-4) % Baso % (Auto) 0.3 (0-2) % Lymph # (Auto) 0.4 L (1.2-4.9) X10*3/uL [place] # (Auto) 0.4 (0.1-1.2) X10*3/uL Eos # (Auto) 0.1 (0.0-0.4) X10*3/uL Baso # (Auto) 0.0 (0.0-0.2) X10*3/uL Abs Immat Gran (auto) 0.11 H (0.00-0.03) X10*3/uL Absolute Neuts (auto) 10.4 H (2.0-8.3) x10*3/uL Absolute Nucleated RBC 0.000 (0.0-0.012) X10*3/uL Nucleated RBC % (auto) 0.0 (0.0-0.2) /100WBC Smear Tech's Comments VERIFIED D-Dimer High Sensitivty 211 NG/ML Sodium 132 L (135-145) mmol/L Potassium 4.5 (3.3-5.1) mmol/L Chloride 104 (96-108) mmol/L Carbon Dioxide 18 L (22-29) mmol/L Anion Gap 15 (12-20) BUN 6 L (9-16) mg/dL Creatinine 0.49 L (0.5-1.4) mg/dL Estim Creat Clear Calc 195.9 Estimated GFR > 60 Random Glucose 85 (60-115) mg/dL Calcium 9.1 (8.4-10.2) mg/dL Total Bilirubin 0.3 (0.0-1.0) mg/dL AST 36 H (5-31) U/L ALT 20 (0-31) U/L Alkaline Phosphatase 75 (39-117) U/L Troponin I High Sens < 2.7 (<3.5-17.0) ng/L Total Protein 8.2 H (6.5-8.0) g/dL Albumin 4.2 (3.5-5.0) g/dL Urine Color Yellow Urine Appearance Cloudy Urine pH 7.5 (5.0-9.0) Ur Specific [place] 1.015 (1.005-1.025) Urine Protein Negative (Neg-Trace) mg/dL Urine Glucose (UA) Negative (Negative) mg/dL Urine Ketones Negative (Negative) mg/dL Urine Blood Negative (Negative) Urine Nitrite Negative (Negative) Ur Leukocyte Esterase Negative (Negative) Influenza Type A (PCR) POSITIVE A (Negative) Influenza Type B (PCR) NEGATIVE (Negative) RSV RNA Qual (PCR) NEGATIVE (Negative) SARS-CoV-2 RNA (RT-PCR) NEGATIVE (Negative) Independent Interpretation I performed an independent interpretation of an: Plain X-Ray (Chest:Chronic interstitial lung disease. Superimposed acute inflammatory process cannot be excluded.) Radiology Impression Discussion of test interpretation with radiology: I have reviewed the radiologist's reading. Critical Care Time Critical Care Time Critical Care Time: Yes Total Critical Care Time: 60 Attestation: The patient was critically ill with a high probability of imminent or life-threatening deterioration. I spent greater than 30 minutes of discontinuous time evaluating the patient, delivering critical care at the bedside, discussing evaluating data with consultants. Critical care time does not include time spent performing separately billable procedures or teaching. Time spent performing critical care was 60 minutes. Discharge Plan Discharge Clinical Impression: Influenza A Patient Disposition: Home, Self-Care Instructions: Influenza (ED) Additional Instructions: Follow-up with your OBGYN after your symptoms is better within 1 week. Return if any abdominal pain, vaginal discharge or bleed, difficulty breathing, or chest pain. Prescriptions: New oseltamivir [Tamiflu] 75 mg capsule 75 mg PO BID 5 Days Qty: 10 0RF prednisone 20 mg tablet 20 mg PO BID Qty: 8 0RF albuterol sulfate 2.5 mg /3 mL (0.083 %) solution for nebulization 2.5 mg inhalation Q4-6H PRN (Reason: shortness of breath or wheezing) Qty: 90 0RF No Action albuterol sulfate [Ventolin HFA] 90 mcg/actuation HFA aerosol inhaler 2 puff inhalation Q6H PRN (Reason: shortness of breath or wheezing) 30 Days Qty: 8 2RF prednisone 50 mg tablet 50 mg PO DAILY 5 Days Qty: 5 0RF gabapentin 300 mg capsule 300 mg PO TID cetirizine [Zyrtec] 10 mg tablet 10 mg PO DAILY PRN (Reason: allergy symptoms) Qty: 90 0RF quetiapine 100 mg tablet 50 mg PO BEDTIME carbamazepine [Tegretol] 200 mg tablet 200 mg PO BID mupirocin [Centany] 2 % ointment 1 appl topical BID 14 Days Qty: 15 0RF acetaminophen 650 mg tablet extended release 1,300 mg PO Q8H PRN (Reason: pain) 30 Days Qty: 180 2RF budesonide-formoterol [Symbicort] 80-4.5 mcg/actuation HFA aerosol inhaler 1 puff inhalation BID Qty: 10.2 1RF dextromethorphan HBr 10 mg/5 mL liquid 10 mg PO Q6H PRN (Reason: cough) Qty: 118 0RF Referrals: Mayda Hummel MD [Primary Care Provider, Internal Medicine] Print Language: Belgian
[2025-05-30] MEDS: Albuterol Sulfate 5 MG, Albuterol/Iprat 2.5/0.5MG 3 ML 3 ML INHALE (12:14)
[2025-05-30 12:16] LABS: Hematocrit 40.1 % (37.0-47.0); Hemoglobin 13.3 g/dl (12.0-16.0); Imm Gran Abs Auto 0.11 X10*3/uL (0.00-0.03); Imm Gran Pct Auto 1.0 % (0.0-0.4); Lymphocytes Absolute Auto 0.4 X10*3/uL (1.2-4.9); MANUAL DIFF FLAG SCAN; Mean Corpuscular HGB Conc 33.2 g/dl (31.0-35.0); Mean Corpuscular Hemoglobin 29.9 pg (27.0-33.0); Mean Corpuscular Volume 90.1 fL (80.0-98.0); NRBC Abs Auto 0.000 X10*3/uL (0.0-0.012); NRBC Pct Auto 0.0 /100WBC (0.0-0.2); Platelet Count 202 X10*3/uL (160-400); Red Blood Count 4.45 X10*6/uL (4.20-5.50); SCAN SMEAR FLAG 1; White Blood Count 11.4 X10*3/uL (4.8-10.8)
[2025-05-30 12:24] LABS: D Dimer High Sensitivity 211 NG/ML
[2025-05-30 12:29] LABS: Appearance Urine Cloudy; Glucose Urine UA Negative (Negative); PH 7.5 (5.0-9.0); Specific Gravity - Urine 1.015 (1.005-1.025)
[2025-05-30 12:40] LABS: Troponin-I High Sensitivity < 2.7 ng/L (<3.5-17.0)
[2025-05-30 12:46] LABS: Alanine Aminotransferase 20 U/L (0-31); Albumin Level 4.2 g/dL (3.5-5.0); Alkaline Phosphatase 75 U/L (39-117); Anion Gap 15 (12-20); Aspartate Amino Transferase 36 U/L (5-31); Blood Urea Nitrogen 6 mg/dL (9-16); Calcium 9.1 mg/dL (8.4-10.2); Carbon Dioxide 18 mmol/L (22-29); Chloride 104 mmol/L (96-108); Creatinine Clr Calc Pharmacy 195.9; Estimated Glomerular Filt Rate > 60; Potassium 4.5 mmol/L (3.3-5.1); Sodium 132 mmol/L (135-145); Total Protein 8.2 g/dL (6.5-8.0)
[2025-05-30] MEDS: Lactated Ringers 1,000 ML 999 ML IV ×2 (12:51→14:59)
--- NOTE | 2025-05-30 13:31 | ECG_ITS ---
Test Reason : TACHYCARDIA Blood Pressure : */* mmHG Vent. Rate : 124 BPM Atrial Rate : 124 BPM P-R Int : 158 ms QRS Dur : 74 ms QT Int : 296 ms P-R-T Axes : 44 41 -10 degrees QTcB Int : 425 ms Sinus tachycardia Otherwise normal ECG When compared with ECG of 13-Apr-2023 10:35, Vent. rate has increased by 45 bpm Inverted T waves have replaced nonspecific T wave abnormality in Inferior leads T wave amplitude has decreased in Anterior leads Referred By: Pam Rubin Electronically Signed By: Kevon Sandra
== END 2025-05-30 16:25 | disposition home or self-care (01) ==
PROVIDERS: Emergency Provider Emergency Medicine; PCP Internal Medicine
DX: O98.512 Other viral diseases complicating pregnancy, second trimester (principal); J10.1 Influenza due to other identified influenza virus with other respiratory manifestations; J45.909 Unspecified asthma, uncomplicated; Z3A.18 18 weeks gestation of pregnancy; Z03.818 Encounter for observation for suspected exposure to other biological agents ruled out; R06.02 Shortness of breath
CPT/HCPCS: 36415; 71045; 80053; 81003; 84484; 85025; 85379; 87637; 93005; 94640; 96361; 96374; 96375; 99284; 99285; J2270; J2919; J7120

== ENCOUNTER → 2025-05-30 11:43 | Outpatient (BNV) | payer OTHER, SELFPAY | PROVIDERS: Emergency Provider Emergency Medicine; PCP Internal Medicine; Visit Provider Radiology Diagnostic Radiology | DX: J84.9 Interstitial pulmonary disease, unspecified (principal) | CPT/HCPCS: 71045 ==

== ENCOUNTER → 2025-05-30 13:31 | Outpatient (BNV) | payer OTHER, SELFPAY | PROVIDERS: Emergency Provider Emergency Medicine; PCP Internal Medicine; Visit Provider Internal Medicine Cardiovascular Disease | DX: R00.0 Tachycardia, unspecified (principal) | CPT/HCPCS: 93010 ==